=== PATIENT | male | born 1950 | race Caucasian/White ===

== ENCOUNTER 2017-01-09 19:15 | Inpatient (IN) ==
[2017-01-09] MEDS ORDERED: ASPIRIN PO STA (19:32)
--- NOTE | 2017-01-09 20:04 | Diag Imaging Result Doc PS360 ---
EXAM: CHEST-2 VIEWS HISTORY: CP TECHNIQUE: PA and lateral chest COMMENT: There is no evidence of acute cardiac or pulmonary disease. There are sternotomy wires. There is a pacemaker on the left. Compared to 10/26/2013 there is been no significant change in the appearance of the chest. There is a calcified granuloma in the left lower lobe. IMPRESSION: Stable chest. Electronically signed by Darion Rios 01/09/2017 8:01 PM
[2017-01-09 20:47] LABS: MANUAL DIFF NEEDED? NO
[2017-01-09 20:55] LABS: BASO% 0.5 % (0.0-0.8); EOS# 0.36 X1000 (0.0-0.7); EOS% 4.3 % (0.0-10.0); HEMATOCRIT 40.3 % (42.0-52.0); HEMOGLOBIN 13.3 g/dL (14.0-18.0); IMM GRAN# 0.05 X1000 (0.0-0.04); IMM GRAN% 0.6 % (0.0-0.5); LYMPH# 3.54 X1000 (1.2-3.4); MCH 32.3 PG (27-31); MCV 97.8 FL (81-99); MONO# 0.76 X1000 (0.11-0.59); MPV 11.1 FL (7.4-10.4); NEUT% 43.6 % (42.2-75.2); PLT 174 X1000 (130-400); RBC 4.12 XMIL (4.7-6.1)
[2017-01-09 21:18] LABS: INR 1.01; PROTIME 10.6 Seconds (9.2-11.7); PTT 25.9 Seconds (22.0-36.0)
[2017-01-09 21:19] LABS: AGAP 12; ALBUMIN 3.9 g/dL (3.5-5.0); ALKALINE PHOSPHATASE 84 U/L (32-122); BUN 14 mg/dL (8-22); CALCIUM 9.4 mg/dL (8.8-10.2); CHLORIDE 102 mmol/L (98-107); CK PROFILE 77 U/L (24-204); COSMO 278; GOT 19 U/L (10-34); GPT 16 U/L (10-44); MAGNESIUM 1.7 mg/dL (1.5-2.7); SODIUM 139 mmol/L (136-145); TCO2 25 mmol/L (25-35); TOTAL PROTEIN 6.9 g/dL (6.3-8.3)
[2017-01-09] MEDS ORDERED: PRINIVIL PO ONE (21:58)
[2017-01-09] MEDS ORDERED: PAXIL PO ONE (21:58)
[2017-01-09] MEDS ORDERED: LIPITOR PO ONE (21:58)
[2017-01-09] MEDS ORDERED: CORDARONE PO ONE (21:59)
--- NOTE | 2017-01-09 22:02 | PROVIDER DOCUMENTATION ---
This chart was entered by Gracie Goldman Scribe, acting as scribe for Tor Alves MD. HPI-Cardiac General - General Chief Complaint: Palpitations Stated Complaint: CHEST PAIN Time Seen by Provider: 01/09/17 19:37 Source: patient Allergies/Adverse Reactions: Patient Allergies Allergy/AdvReac Type Severity Reaction Status Date / Time No Known Allergies Allergy Verified 07/09/15 07:16 Home Medications: Home Medication List Medication Instructions Recorded Confirmed Last Taken Type Aspirin 81 mg PO DAILY 11/04/12 07/09/15 07/08/15 History Atorvastatin Calcium [Lipitor] 40 mg PO QPM 11/04/12 07/09/15 07/08/15 History Carvedilol [Coreg] 3.125 mg PO BID 11/04/12 07/09/15 07/08/15 History Furosemide [Lasix] 20 mg PO DAILY 11/04/12 07/09/15 07/08/15 History LISINOpril [Prinivil] 5 mg PO BID 11/04/12 07/09/15 07/08/15 History Multivitamin [Multi Vitamin Daily] 1 each PO DAILY 11/04/12 07/09/15 07/08/15 History Omeprazole 20 mg PO DAILY 11/04/12 07/09/15 07/08/15 History Paroxetine HCl 20 mg PO DAILY 11/04/12 07/09/15 07/08/15 History Tramadol HCl 50 mg PO PRN PRN 11/04/12 07/09/15 07/08/15 23:30 History Ardara-3S/Dha/Epa/Fish Oil/D3 [Fish 1 each PO DAILY 08/08/14 07/09/15 07/08/15 History Dxv-Kitci-1-Vit D Softgel] Prasugrel [Effient] 10 mg PO DAILY 08/08/14 07/09/15 07/08/15 History Ranolazine [Ranexa] 500 mg PO BID 08/08/14 07/09/15 07/08/15 History Cephalexin [Keflex] 500 mg PO TID #21 capsule 07/09/15 Unknown Rx Spironolactone 0.5 tab PO DAILY 07/09/15 07/09/15 07/08/15 History - History of Present Illness-Cardiac Nature of Presenting Problem: 66 Y/O M presents to ER with the complain of having palpitations. pt states that he has defibrillator and had multiple episodes of having his defibrillator paced off. pt states that he feels lightheaded and visual changes when it happens. pt states that he got called from the defibrillator company that his defibrillator has went off and if this happens again then go to ER. pt has pacemaker defibrillator put in [place], [place]. pt has hx of heart attack and other cardiac problems. pt denies any other symptoms. Severity in ED: moderate Onset/Duration: just prior to arrival Timing: improving Review of Systems - Adult - REVIEW OF SYSTEMS - ADULT Constitutional: reports: no symptoms reported Eyes: reports: other (visual changes). denies: double vision Ears, Nose, Mouth & Throat: reports: no symptoms reported Cardiovascular: reports: palpitations. denies: chest pain Respiratory: denies: cough, shortness of breath, wheezing Gastrointestinal: reports: no symptoms reported Genitourinary: reports: no symptoms reported Musculoskeletal: reports: no symptoms reported Integumentary: reports: no symptoms reported Neurological: denies: loss of balance, numbness Psychiatric: reports: no symptoms reported Endocrine: reports: no symptoms reported Hematologic/Lymphatic: reports: no symptoms reported Allergic/Immunologic: reports: no symptoms reported All Other Systems: Reviewed and Negative Past History - Adult - PAST MEDICAL HISTORY-ADULT Review of Records: reports: Old Records Reviewed, Nursing Assessment Review Cardiovascular: reports: cardiac disease, CAD, HTN, hyperlipidemia, [place] Respiratory: reports: asthma, sleep apnea Musculoskeletal: reports: arthritis, chronic pain (back) - PRIOR SURGERIES/PROCEDURES Surgical/Procedure History: reports: CABG, cardiac stent, back/neck (back) - IMMUNIZATION STATUS Childhood Immunizations: See Nurse Assessment Flu Vaccine: See Nurse Assessment - SOCIAL HISTORY Substance Use: alcohol Alcohol Use Frequency: occasionally Physical Exam-General - PHYSICAL EXAM-ADULT Initial Vital Signs Reviewed: Yes - CONSTITUTIONAL General Appearance: appears well, alert - EYES Eyes: PERRL/EOMI, pink conjunctivae - HEAD, EARS, NOSE, MOUTH & THROAT HENMT: moist mucous membranes, normal ENT inspection, TMs normal - NECK Neck: non-tender, full range of motion, supple - RESPIRATORY Respiratory: chest non-tender, lungs clear, normal breath sounds - CARDIOVASCULAR Cardiovascular: systolic murmur, other (pacemater defibrillator) - GASTROINTESTINAL (ABDOMEN) Abdominal Exam: normal bowel sounds, non tender, soft - MUSCULOSKELETAL Back Exam: normal inspection, no CVA tenderness, no vertebral tenderness Extremity: normal range of motion, non-tender, normal gait - SKIN Integumentary: normal color, normal turgor, warm/dry - NEUROLOGIC Neurologic: grossly normal, no motor/sensory deficits - PSYCHIATRIC Psych/Mental Status: normal mood/affect, normal thought content, normal thought process, oriented x 3 Progress - PLAN OF CARE/RESULTS Progress/Plan/Lab Results: Vital Signs - 8 hr 01/09/17 19:30 01/09/17 21:31 Temperature 98.4 F Pulse Rate 66 59 L Respiratory Rate 18 14 Blood Pressure 118/53 131/67 O2 Sat by Pulse Oximetry 98 98 Laboratory Results - last 24 hr 01/09/17 01/09/17 01/09/17 20:30 20:30 20:30 WBC 8.43 RBC 4.12 L Hgb 13.3 L Hct 40.3 L MCV 97.8 MCH 32.3 H MCHC 33.0 RDW Std Deviation 12.6 Plt Count 174 MPV 11.1 H Immature Gran % (Auto) 0.6 H Neut % (Auto) 43.6 Lymph % (Auto) 42.0 [place] % (Auto) 9.0 Eos % (Auto) 4.3 Baso % (Auto) 0.5 Immature Gran # (Auto) 0.05 H Neut # (Auto) 3.68 Lymph # (Auto) 3.54 H [place] # (Auto) 0.76 H Eos # (Auto) 0.36 Baso # (Auto) 0.04 PT INR PTT (Actin FS) D-Dimer 0.31 Sodium 139 Potassium 4.0 Chloride 102 Carbon Dioxide 25 Anion Gap 12 BUN 14 Creatinine 1.0 Estimated GFR/1.73 m2 > 60 BUN/Creatinine Ratio 14 Glucose 102 Calculated Osmolality 278 Calcium 9.4 Magnesium 1.7 Total Bilirubin 0.40 AST 19 ALT 16 Alkaline Phosphatase 84 Creatine Kinase 77 Troponin T Blz-A-Spqtbmcjhbj Pept Total Protein 6.9 Albumin 3.9 Globulin 3.0 Albumin/Globulin Ratio 1.3 01/09/17 01/09/17 01/09/17 20:30 20:30 20:30 WBC RBC Hgb Hct MCV MCH MCHC RDW Std Deviation Plt Count MPV Immature Gran % (Auto) Neut % (Auto) Lymph % (Auto) [place] % (Auto) Eos % (Auto) Baso % (Auto) Immature Gran # (Auto) Neut # (Auto) Lymph # (Auto) [place] # (Auto) Eos # (Auto) Baso # (Auto) PT 10.6 INR 1.01 PTT (Actin FS) 25.9 D-Dimer Sodium Potassium Chloride Carbon Dioxide Anion Gap BUN Creatinine Estimated GFR/1.73 m2 BUN/Creatinine Ratio Glucose Calculated Osmolality Calcium Magnesium Total Bilirubin AST ALT Alkaline Phosphatase Creatine Kinase Troponin T < 0.010 Fsq-[id number]-Hvzwgsircvy Pept 1866 H Total Protein Albumin Globulin Albumin/Globulin Ratio Orders Category Date Time Status Cardiac Monitoring DIRECTED Care 01/09/17 19:32 Active Oxygen Therapy- ED Nursing DIRECTED Care 01/09/17 19:32 Active Saline Loc NOW Care 01/09/17 19:32 Active CHEST-2 VIEWS [RAD] Stat Exams 01/09/17 19:32 Completed CBC WITH ELECTRONIC DIFF [HEME] Stat Lab 01/09/17 20:30 Completed CK PROFILE [SP CHEM] Stat Lab 01/09/17 20:30 Completed COMPREHENSIVE METABOLIC PANEL [CHEM] Stat Lab 01/09/17 20:30 Completed D-DIMER [CHEM] Stat Lab 01/09/17 20:30 Completed MAGNESIUM [CHEM] Stat Lab 01/09/17 20:30 Completed PRO B-NATRIURETIC PEPTIDE Stat Lab 01/09/17 20:30 Completed PROTIME WITH INR [COAG] Stat Lab 01/09/17 20:30 Completed PTT [COAG] Stat Lab 01/09/17 20:30 Completed TROPONIN T Stat Lab 01/09/17 20:30 Completed ATORVAstatin [Lipitor] Med 01/09/17 21:58 Once 40 mg PO NOW ONE Amiodarone [Cordarone] Med 01/09/17 21:59 Once 400 mg PO NOW ONE Aspirin Med 01/09/17 19:32 Discontinued 325 mg PO STAT STA LISINOpril [Prinivil] Med 01/09/17 21:58 Once 5 mg PO NOW ONE Paroxetine [Paxil] Med 01/09/17 21:58 Once 10 mg PO NOW ONE EKG [EKG] Stat Ther 01/09/17 19:22 Ordered EKG [EKG] Stat Ther 01/09/17 21:24 Ordered Result Diagrams: 01/09/17 20:30 01/09/17 20:30 - EKG 1 Time of EKG reading by physician:: 19:24 EKG Read and Signed by:: Tor Alves EKG Interpretation (*Must complete 3 of following elements*): Abnormal Rate: 63 Rhythm: normal sinus rhythm with sinus arrhyhmia Comments: abnormal ECG - XRAY 1 XRAY: Bilateral XRAY Study: Chest Impression: Normal XRAY Interpretation: stable chest by radiologist - CONSULTS/PCP/HOSPITALIST Notification #1 *Consult/PCP/Hospitalist*: Time Discussed: 21:44 (wants to put pt on amiodaron as per protocol) Reason/Comments: discussed about 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 Consult: Dr Carty Time Discussed: 21:54 Reason/Comments: discussed about pt Consult Disposition: Admit Departure - Departure Date of Disposition Decision: 01/09/17 Time of Disposition Decision: 22:00 DIAGNOSIS: Ventricular tachycardia (paroxysmal) Disposition: HOME 01 Certified Medical Emergency: Emergent Condition: Good Referrals and Follow-Ups: Tej Gracia [Primary Care Provider] - - Critical Care Note This patient required my direct & personal management of CC.: No Attestation - Physician/ ROSEMARY Attestation Patient care was provided by Advanced Practice Provider:: No The physician spent face to face time with patient:: Yes Advanced Practice Provider documentation review:: Supervising physician onsite and consulted in the evaluation and care of this patient. The physician did have a face to face encounter with the patient. This chart was documented by the indicated scribe, (Gracie Goldman Scribe) and accurately reflects the services I performed and decisions made by me, Tor Alves MD, as attested by the provider's signature.
--- NOTE | 2017-01-09 23:08 | ED EKG INTERP ---
This chart was entered by Gracie Goldman Scribe, acting as scribe for Tor Alves MD. EKG Interpretation - EKG Time of EKG reading by physician:: 21:49 EKG Read and Signed by:: Tor Alves EKG Interpretation (*Must complete 3 of following elements*): Abnormal Rate: 61 Rhythm: sinus rhythm with premature atrial complexes brigida pattern of bigeminy Comments: abnormal ECG Attestation - Physician/ ROSEMARY Attestation Patient care was provided by Advanced Practice Provider:: No The physician spent face to face time with patient:: Yes Advanced Practice Provider documentation review:: Supervising physician onsite and consulted in the evaluation and care of this patient. The physician did have a face to face encounter with the patient. This chart was documented by the indicated scribe, (Gracie Goldman Scribe) and accurately reflects the services I performed and decisions made by me, Tor Alves MD, as attested by the provider's signature.
[2017-01-10] MEDS ORDERED: TYLENOL PO PRN (00:09)
[2017-01-10] MEDS ORDERED: ZOFRAN IV PRN (00:09)
[2017-01-10] MEDS ORDERED: SINGULAIR PO PRN (00:09)
[2017-01-10] MEDS ORDERED: ULTRAM PO PRN (00:09)
[2017-01-10] MEDS ORDERED: NITROGLYCERIN SL PRN (00:09)
--- NOTE | 2017-01-10 03:32 | HISTORY AND PHYSICAL ---
CARDIOLOGISTS: Dr. Troy. CHIEF COMPLAINT: Palpitations. HISTORY OF PRESENT ILLNESS: Mr. Reddy is a 66-year-old, male with a history of severe coronary artery disease status post SD, systolic congestive heart failure, ischemic cardiomyopathy, who recently had 3 stents placed at [facility] around 6 weeks ago. Reports today with palpitations and reports that his ICD possibly went off and confirmed reports of ventricular tachycardia. He started having some palpitations around Saturday. He had his device interrogated over the phone and it was found that he was having a few episodes of ventricular tachycardia. He was told that if he continued to have these sensations that he should go the ER. He called again today and confirmed that he was having more ventricular tachycardia and he came to the hospital for evaluation. He denies any overt chest pain. He does report palpitation type symptoms and intervention by his ICD. He has no other complaints. No fever or chills. No cough or congestion. He does have chronic shortness of breath and orthopnea which has been overall stable. He got to the ER today. He had labs and diagnostics done. He had some mild anemia and a proBNP of 1866, otherwise negative. Cardiology has already been notified and they have requested the patient be admitted and placed on amiodarone. As such, we are going to admit him overnight to the ICU for treatment and evaluation. PAST MEDICAL HISTORY: 1. CAD. 2. Ischemic cardiomyopathy. 3. Systolic congestive heart failure. 4. Depression. 5. Hyperlipidemia. 6. Hypertension. 7. GERD. PAST SURGICAL HISTORY: He has had a CABG, nephrectomy for donation, cholecystectomy, appendectomy. SOCIAL HISTORY: Patient denies tobacco or drug use. He reports very occasional alcohol. He is retired from . FAMILY HISTORY: Significant for coronary disease. REVIEW OF SYSTEMS: Fourteen-point review of systems obtained and found to be negative with the exception of the HPI. HOME MEDICATIONS: Aspirin 81 mg daily, Lipitor 40 mg p.m., fluticasone nasal spray 1 puff b.i.d., Lasix 20 mg daily, Prinivil 5 mg b.i.d., metoprolol succinate 50 mg daily, Singulair 10 mg as needed, multivitamin 1 daily, nitroglycerin 0.4 mg as needed for chest pain, fish oil 2000 mg b.i.d., omeprazole 20 mg daily, paroxetine 10 mg daily, Effient 10 mg daily, Aldactone 12.5 mg daily, tramadol 50 mg as needed for pain. ALLERGIES: No known drug allergies. PHYSICAL EXAMINATION: VITAL SIGNS: Blood pressure is 125/65, heart rate 72, respiratory rate is 19, O2 saturation 100% on room air. Temperature is 98.4 degrees. GENERAL: This is a chronically ill-appearing, 66-year-old, male, lying in a hospital bed in no acute distress. NEUROLOGIC: He is awake, alert, and oriented. He follows commands without focal deficits. HEENT: Head is atraumatic and normocephalic. His pupils are equal, round, and reactive to light. Oral mucosa is moist. Trachea is midline. There is no JVD. CHEST: Clear to auscultation bilaterally. CV: Regular rate and rhythm with occasional skipped beats. S1 and S2 noted. There is a 2/6 systolic murmur noted. GI: Soft, nondistended, nontender. Bowel sounds positive. EXTREMITIES: Trace edema with 1+ pulses bilaterally. DIAGNOSTIC DATA: Chest x-ray does not show anything acute. There is calcified granuloma in the left lower lobe. EKG, sinus bradycardia with diffuse nonspecific ST and T changes. LABORATORY DATA: WBC 8.43, hemoglobin 13.3, hematocrit 40.3, platelet count 174 ,000. INR 1.01. D-dimer 0.31. Sodium 139, potassium 4, chloride 102, CO2 25, anion gap 12, BUN 14, creatinine 1, glucose is 102, calcium 9.4, magnesium 1.7. Total bilirubin 0.4, AST 19, ALT 16 , alkaline phosphatase 84. ProBNP 1866. Protein 6.9, albumin 3.9. ASSESSMENT AND PLAN: 1. Palpitations with confirmed ventricular tachycardia: The patient is going to be admitted to the intensive care unit. We are going to start oral amiodarone per cardiology recommendation. We will trend his enzymes, check an echocardiogram in the morning, make sure and check thyroid function as well. 2. Systolic heart failure: Exact ejection fraction is unknown but we are going to check an echocardiogram. Follow strict intakes and outputs, and daily weights. He is overall euvolemic at this time. Continue his home medications. 3. Severe coronary disease: Continue lifestyle modification education. Continue his beta luh, aspirin, and Effient. Cardiology has been consulted. 4. Hypertension/hyperlipidemia: Continue his home medications. 5. Gastroesophageal reflux disease: Stable. Continue his omeprazole. 6. Deep vein thrombosis prophylaxis will be provided with Lovenox. 7. Further recommendations to follow. 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 cc: SIS Taylor MD [facility]
[2017-01-10 05:50] LABS: HEMATOCRIT 37.4 % (42.0-52.0); HEMOGLOBIN 12.3 g/dL (14.0-18.0); MCH 32.2 PG (27-31); MCHC 32.9 g/dL (33-37); MCV 97.9 FL (81-99); MPV 10.9 FL (7.4-10.4); RBC 3.82 XMIL (4.7-6.1)
[2017-01-10 06:08] LABS: AGAP 11; BUN 16 mg/dL (8-22); CALCIUM 9.3 mg/dL (8.8-10.2); CHLORIDE 104 mmol/L (98-107); COSMO 282; POTASSIUM 4.3 mmol/L (3.5-5.1); SODIUM 140 mmol/L (136-145); TCO2 25 mmol/L (25-35)
--- NOTE | 2017-01-10 07:42 | EKG Report ---
Test Performed on : 01/09/2017 9:49:53 PM Test Reason : change Blood Pressure : / mmHG Vent. Rate : 061 BPM Atrial Rate : 061 BPM P-R Int : 158 ms QRS Dur : 128 ms QT Int : 426 ms P-R-T Axes : 008 -40 100 degrees QTc Int : 428 ms Sinus rhythm. with premature atrial complexes. in a pattern of bigeminy. Left axis deviation Nonspecific intraventricular block Inferior infarct (cited on or before 05-NOV-2012) Cannot rule out Anterior infarct (cited on or before 05-NOV-2012) Abnormal ECG When compared with ECG of 09-JAN-2017 19:24, (Unconfirmed) premature atrial complexes. are now present Unconfirmed Result
--- NOTE | 2017-01-10 07:42 | EKG Report ---
Test Performed on : 01/09/2017 7:24:20 PM Test Reason : CHEST PAIN Blood Pressure : / mmHG Vent. Rate : 063 BPM Atrial Rate : 063 BPM P-R Int : 154 ms QRS Dur : 130 ms QT Int : 420 ms P-R-T Axes : -02 -44 106 degrees QTc Int : 429 ms Normal sinus rhythm. with sinus arrhythmia. Left axis deviation Nonspecific intraventricular block Inferior infarct (cited on or before 05-NOV-2012) Cannot rule out Anterior infarct , age undetermined T wave abnormality, consider lateral ischemia Abnormal ECG When compared with ECG of 05-NOV-2012 07:42, premature ventricular complexes. are no longer present Unconfirmed Result
[2017-01-10] MEDS ORDERED: PRILOSEC PO SCH (09:00)
[2017-01-10] MEDS ORDERED: PAXIL PO SCH (09:00)
[2017-01-10] MEDS ORDERED: FLONASE NAS SCH (09:00)
[2017-01-10] MEDS ORDERED: ALDACTONE PO SCH (09:00)
[2017-01-10] MEDS ORDERED: TOPROL XL PO SCH (09:00)
[2017-01-10] MEDS ORDERED: LOVENOX SUBQ SCH (09:00)
[2017-01-10] MEDS ORDERED: FISH OIL CONCENTRATE PO SCH (09:00)
[2017-01-10] MEDS ORDERED: COREG PO SCH (09:00)
[2017-01-10] MEDS ORDERED: CORDARONE PO SCH (09:00)
[2017-01-10] MEDS ORDERED: EFFIENT PO SCH (09:00)
[2017-01-10] MEDS ORDERED: PRINIVIL PO SCH (09:00)
[2017-01-10] MEDS ORDERED: ASPIRIN PO SCH (09:00)
[2017-01-10] MEDS ORDERED: THERA M PLUS PO SCH (09:00)
[2017-01-10] MEDS ORDERED: CORDARONE 150 MG/D5W 150 MG/100 ML IV.SOLN IV ONE (09:36)
[2017-01-10] MEDS ORDERED: CORDARONE 360 MG/D5W 360 MG/200 ML IV.SOLN IV ONE (09:36)
[2017-01-10 12:04] VITALS: BP 115/50
--- NOTE | 2017-01-10 14:59 | CONSULTATION ---
DATE OF CONSULTATION: 01/10/2017 CARDIOLOGY CONSULT NOTE: IMPRESSION: 1. Recurrent episodes of ventricular tachycardia, either nonsustained or interrupted with overdrive pacing from implanted defibrillator. 2. Atherosclerotic coronary disease. A) Status post coronary bypass grafting 2001. B) Status post angioplasty with stenting of proximal saphenous vein graft to diagonal which in effect is collateralizing the remainder of the coronary system. Right coronary artery, left internal mammary artery graft and saphenous vein graft to right coronary artery are all occluded. C) Status post repeat angioplasty with stenting of proximal saphenous vein graft to diagonal which collateralized the remainder of the system. D) Ischemic cardiomyopathy with left ventricular ejection around 30%. The patient is status post implantable defibrillator. 3. Hypertension. 4. Hyperlipidemia. RECOMMENDATIONS: 1. Continue intravenous amiodarone. 2. Continue beta-luh as tolerated. 3. Given that patient just had percutaneous intervention on proximal saphenous vein graft to diagonal which collateralizes the entire coronary system, re-evaluation with cardiac catheterization/coronary geography is needed. It would be most prudent to do this at [facility] where percutaneous coronary intervention versus coronary bypass surgery can be considered as well as expert arrhythmia consultation can be obtained. This was discussed with the patient. He very much wishes to transfer. HISTORY: This 66-year-old, white male with past history of atherosclerotic coronary disease as outlined above, previous coronary bypass graft in 2001, ischemic cardiomyopathy with left ventricular ejection fraction of 30%, hypertension, hyperlipidemia presented to the emergency room last night after his defibrillator was noted to be demonstrating recurrent episodes of ventricular tachycardia requiring overdrive tachy pacing. He had several episodes and was advised to go the emergency room. He had not had a defibrillator discharge. He relates that he could feel episodes in that he would feel palpitations and a flushed feeling rising up from his chest to his head. There was no chest pain. He has had no orthopnea. He is status post repeat angioplasty with stenting of proximal saphenous vein graft to diagonal approximately 2 months ago after he presented with progressive exertional angina with relatively low threshold for symptoms. Since that time he has done well up until the last 24 hours. He last walked perhaps about a week ago and had no difficulty with exertional angina or dyspnea. He was able to walk about a half mile at that time. Because of the weather he has not done much walking in the past week. He continues take dual anti-platelet therapy. There has been no syncope. PAST MEDICAL HISTORY: 1. Atherosclerotic coronary disease as outlined above. 2. Hypertension. 3. Hyperlipidemia. 4. Ischemic cardiomyopathy. 5. Obesity. 6. Status post implantable defibrillator. 7. Gastroesophageal reflux. 8. Depression. PAST SURGICAL HISTORY: Includes coronary bypass grafting, nephrectomy for donation, cholecystectomy, and appendectomy. ALLERGIES: He has no known drug allergies. MEDICATIONS: Prior to admission as listed. SOCIAL HISTORY: He does not smoke. He drinks infrequent alcohol. He is retired from [employer]. He is . FAMILY HISTORY: Positive for coronary disease. REVIEW OF SYSTEMS: Pulmonary: Noncontributory beyond history of present illness. Gastrointestinal: Noncontributory beyond history of present illness. Constitutional: Noncontributory beyond history of present illness. Remainder of review of systems negative/noncontributory beyond history present illness with 14 total systems reviewed. PHYSICAL EXAMINATION: General: This is a pleasant, overweight, older middle-aged white male in no distress. Vital Signs: Blood pressure 115/50, heart rate 57 and regular, with ECG monitor now showing sinus rhythm. Oxygen saturation 96% on room air. HEENT: Extraocular movements intact. Mucous membranes are moist. Neck: Supple without jugular venous distention. There are no carotid bruits. Chest: Clear to auscultation. Cardiac Exam: Reveals a regular rate and rhythm without appreciable murmur or gallop. Abdomen: Soft, nontender. Bowel sounds are normal. Extremities: Without edema. Neurologic Exam: Reveals him to be alert and fully oriented. Speech is fluent. He moves all 4 extremities equally well. Skin: Warm and dry. Psychiatric Exam: Reveals mood to be appropriate. LABORATORY DATA: Includes a hematocrit of 40.3, hemoglobin 13.3, white blood cell count 8.4, platelet count 174,000. ProTime 10.6, INR 1.0, PTT 25.9. D-dimer 0.31. Potassium 4.3, BUN 16, creatinine 1.1. CPK 64. Troponin less than 0.01. TSH 0.98. DIAGNOSTIC DATA: EKG sinus rhythm with premature atrial complexes, left axis deviation, nonspecific interventricular conduction block and delayed precordial R-wave progression, cannot exclude prior anterior infarct of undetermined age. Chest x-ray reports no evidence of acute disease. Sternotomy wires noted as well as implantable defibrillator. cc: Dale Troy MD
[2017-01-10] MEDS ORDERED: CORDARONE 540 MG in D5W 289.2 ML IV ONE (16:00)
[2017-01-10] MEDS ORDERED: LIPITOR PO SCH (21:00)
--- NOTE | 2017-01-11 13:49 | ECHO REPORT ---
ORDER DATE: 01/10/2017 MEASUREMENTS: Left ventricular end-diastolic diameter 7.3, end systolic diameter 6.3, posterior wall thickness 0.9, septal thickness 1.0, left atrium 4.9, aortic root 4.4. SUMMARY: 1. Adequate quality study. 2. Mild sclerosis of trileaflet aortic valve demonstrated with adequate aortic valve opening evident. There is mild aortic regurgitation. Mitral, tricuspid, and pulmonic valves are without structural abnormality with moderate mitral regurgitation, mild tricuspid regurgitation, and mild pulmonic insufficiency. Estimated systolic PA pressure by Doppler is 55 mmHg suggesting moderate pulmonary hypertension. The aortic root is mild to moderately enlarged. 3. Moderate to severe left ventricular enlargement demonstrated. Left ventricular wall thickness normal. Estimated left ejection fraction approximately 30%. There is thinning and akinesis of the basal and mid inferolateral region left ventricle. There is thinning and akinesis of the basal inferior wall. The mid inferior wall is mildly hypokinetic. Left atrium is moderately enlarged. Right atrium, right ventricle are normal size with normal right ventricular systolic function. Defibrillator lead evident right ventricle. 4. No pericardial effusion. 5. Appearance of inferior vena cava suggests normal central venous pressure. CONCLUSIONS: 1. Mild aortic valve sclerosis without stenosis with mild aortic regurgitation. 2. Moderate mitral regurgitation. 3. Mild tricuspid regurgitation with moderate pulmonary hypertension by Doppler. 4. Moderately severe left ventricular enlargement with estimated left ejection fraction 30% with akinesis of the basal and mid inferolateral wall, akinesis of the basal inferior wall, and mild mid inferior wall hypokinesis. 5. Moderate left atrial enlargement. 6. Defibrillator lead in right ventricle. cc: MD Raymundo Campo CRNP
--- NOTE | 2017-01-12 14:43 | DISCHARGE SUMMARY ---
ADMISSION DATE: 01/09/2017 DISCHARGE DATE: 01/10/2017 FINAL DISCHARGE DIAGNOSES: 1. Recurrent ventricular tachycardia. 2. Severe coronary artery disease status post coronary artery bypass graft. 3. Ischemic cardiomyopathy status post IACD. 4. Hypertension. 5. Dyslipidemia. CONSULTATIONS REQUESTED DURING THIS HOSPITAL STAY: Cardiology consultation. HOSPITAL COURSE: Mr. Reddy is a 66-year-old male with a history of extensive cardiac disease who presented to the ER with a chief complaint of palpitations. Once the patient was placed on the compliance monitor he was noted to be going in and out of ventricular tachycardia. The patient was admitted to the ICU and Cardiology was consulted. The patient was placed on IV amiodarone and beta blockade therapy. However despite these interventions the patient continued to go in and out of ventricular tachycardia. The transplant coordinator consulted with the transplant coordinator at [facility] and arrangements were made for the patient to be transferred to [facility] for further treatment and evaluation by an fabrication specialist. The patient was transferred to [facility] on December on 01/10/2017. cc: MD Tej Lorenzo
== END 2017-01-10 16:00 | disposition short-term general hospital (02) ==
LOC: ED 19:15 → SUATTDRO 22:50 → ICU 22:50
PROVIDERS: ATTEND Internal Medicine

== ENCOUNTER 2017-02-13 11:20 | Observation (INO) ==
[2017-02-13 11:45] LABS: MANUAL DIFF NEEDED? NO
[2017-02-13 11:52] LABS: BASO% 0.7 % (0.0-0.8); EOS# 0.25 X1000 (0.0-0.7); EOS% 2.6 % (0.0-10.0); HEMATOCRIT 39.5 % (42.0-52.0); HEMOGLOBIN 13.1 g/dL (14.0-18.0); IMM GRAN# 0.18 X1000 (0.0-0.04); IMM GRAN% 1.9 % (0.0-0.5); LYMPH# 2.79 X1000 (1.2-3.4); LYMPH% 28.9 % (20.5-51.1); MCH 32.8 PG (27-31); MCHC 33.2 g/dL (33-37); MONO# 0.94 X1000 (0.11-0.59); MONO% 9.7 % (1.7-9.3); MPV 10.5 FL (7.4-10.4); NEUT% 56.2 % (42.2-75.2); PLT 189 X1000 (130-400); RBC 3.99 XMIL (4.7-6.1)
[2017-02-13 12:00] LABS: INR 1.03; PROTIME 10.8 Seconds (9.2-11.7)
--- NOTE | 2017-02-13 12:06 | Diag Imaging Result Doc PS360 ---
CHEST-PORTABLE - 02/13/2017 INDICATION: near syncope TECHNIQUE: COMPARISON: 01/09/2017 FINDINGS: Stable left-sided pacemaker. Stable sternotomy wires. There is mild cardiomegaly. Pulmonary vascularity is normal. No focal infiltrates, pneumothorax, or pleural effusion. IMPRESSION: Mild cardiomegaly. Electronically signed by Dwight Ferrer 02/13/2017 12:03 PM
[2017-02-13 12:18] LABS: URINE MICRO REVIEW NEEDED? NO; URINE SOURCE CLEAN CATCH
[2017-02-13 12:19] LABS: ALBUMIN 4.1 g/dL (3.5-5.0); CALCIUM 9.9 mg/dL (8.8-10.2); MAGNESIUM 2.2 mg/dL (1.5-2.7); POTASSIUM 5.5 mmol/L (3.5-5.1); TOTAL BILIRUBIN 0.67 mg/dL (0.20-1.00); TOTAL PROTEIN 7.4 g/dL (6.3-8.3)
[2017-02-13 12:22] LABS: UR EPITHELIAL CELLS <10 /HPF (<10); URINE BACTERIA NEGATIVE /HPF; URINE RBC <10 /HPF (<10); URINE WBC TNTC /HPF (<10)
[2017-02-13 12:27] LABS: BILIRUBIN URINE SMALL (NEGATIVE); BLOOD URINE NEGATIVE (NEGATIVE); COLOR YELLOW; GLUCOSE URINE NEGATIVE (NEGATIVE); LEUKOCYTES URINE LARGE (NEGATIVE); NITRITE URINE NEGATIVE (NEGATIVE); PROTEIN URINE 200 mg/dL (NEGATIVE); SP GRAVITY URINE 1.025; TURBIDITY URINE HAZY (CLEAR); URINE CULTURE NEEDED? YES; UROBILINOGEN URINE 2 mg/dL (NORMAL)
[2017-02-13] MEDS ORDERED: KAYEXALATE PO ONE (12:29)
[2017-02-13] MEDS ORDERED: NS 500 ML IV ONE (12:29)
[2017-02-13] MEDS ORDERED: ROCEPHIN 1 GM in NS 50 ML IV ONE (12:29)
[2017-02-13] MEDS ORDERED: NS 1,000 ML IV SCH (16:16)
--- NOTE | 2017-02-13 17:00 | PROVIDER DOCUMENTATION ---
This chart was entered by Sudhir Dykes Scribe, acting as scribe for Abiodun Fuentes PA. HPI-Syncope/Dizziness - General Chief Complaint: Near Syncope Stated Complaint: NEAR SYNCOPE BRADYCARDIA Time Seen by Provider: 02/13/17 11:27 Source: patient Allergies/Adverse Reactions: Patient Allergies Allergy/AdvReac Type Severity Reaction Status Date / Time No Known Allergies Allergy Verified 02/13/17 13:10 Home Medications: Home Medication List Medication Instructions Recorded Confirmed Last Taken Type LISINOpril [Prinivil] 5 mg PO DAILY 11/04/12 02/13/17 02/13/17 08:00 History Multivitamin [Multi Vitamin Daily] 1 each PO DAILY 11/04/12 02/13/17 02/13/17 08 :00 History Albuterol Sulfate [Proair Hfa] 2 puff PO PRN PRN 02/13/17 02/13/17 Unknown History Aspirin 325 mg PO DAILY 02/13/17 02/13/17 02/13/17 08:00 History Clonazepam 0.5 mg PO HS 02/13/17 02/13/17 02/12/17 21:00 History Fish Oil/Dha/Epa [Fish Oil 1,200 1,200 mg PO DAILY 02/13/17 02/13/17 02/13/17 08 :00 History mg Fish Oil] Garlic 500 mg PO DAILY 02/13/17 02/13/17 02/13/17 08:00 History Gemfibrozil 600 mg PO HS 02/13/17 02/13/17 02/13/17 08:00 History Tamsulosin HCl 0.4 mg PO EVERY OTHER DAY 02/13/17 02/13/17 02/13/17 08:00 History Turmeric Root Extract [Turmeric] 500 mg PO DAILY 02/13/17 02/13/17 02/13/17 08: 00 History - History of Present Illness-Syncope/Dizzy Nature of Presenting Problem: patient is a 66 y/o M that presents after having a near syncopal episode at the [facility]. Patient reports feeling lightheaded and flushed. he felt faint and nearly passed out. He feels dizzy now. denies any chest pain. History of issues with arrhythmia in past. He had stents placed at 6 weeks ago. He had several episodes of VT several weeks ago. Prior Episodes: reports: single episode today Onset/Duration: reports: abrupt, just prior to arrival Timing: reports: improving Symptoms prior to episode: reports: lightheaded. denies: nausea/vomiting, chest pain, abdominal pain, recent head trauma, rapid heart beat Context: reports: felt faint, almost passed out Loss of Consciousness: no loss of consciousness Location of injury. (If syncope resulted in an injury.): reports: none Current Symptoms: reports: lightheaded, dizzy, lightheaded. denies: chills, chest pain, abdominal pain, nausea, vomiting Similar symptoms previously: reports: previous diagnosis Recently Seen Here or By Another Healthcare Provider: Yes Review of Systems - Adult - REVIEW OF SYSTEMS - ADULT Constitutional: denies: chills, fever Eyes: reports: no symptoms reported Ears, Nose, Mouth & Throat: reports: no symptoms reported Cardiovascular: reports: syncope (near). denies: orthopnea, palpitations Respiratory: denies: cough, shortness of breath, wheezing Gastrointestinal: denies: abdominal pain, diarrhea, nausea, vomiting Genitourinary: reports: no symptoms reported Musculoskeletal: reports: no symptoms reported Integumentary: reports: no symptoms reported Neurological: reports: dizziness/vertigo, syncope (near) Psychiatric: reports: no symptoms reported Endocrine: reports: no symptoms reported Hematologic/Lymphatic: reports: no symptoms reported Allergic/Immunologic: reports: no symptoms reported All Other Systems: Reviewed and Negative Past History - Adult - PAST MEDICAL HISTORY-ADULT Review of Records: reports: Old Records Reviewed, Nursing Assessment Review, Medications Reviewed Cardiovascular: reports: cardiac disease, CAD, HTN, hyperlipidemia, [place] Respiratory: reports: asthma, sleep apnea Musculoskeletal: reports: arthritis, chronic pain (back) - PRIOR SURGERIES/PROCEDURES Surgical/Procedure History: reports: CABG, cardiac stent, back/neck (back) - IMMUNIZATION STATUS Childhood Immunizations: See Nurse Assessment Flu Vaccine: See Nurse Assessment - FAMILY HISTORY Family History: reviewed, not pertinent - SOCIAL HISTORY Smoking: non-smoker Alcohol Use Frequency: occasionally Living Situation: family Physical Exam-General - PHYSICAL EXAM-ADULT Initial Vital Signs Reviewed: Yes - CONSTITUTIONAL General Appearance: alert, no apparent distress - EYES Eyes: PERRL/EOMI, pink conjunctivae - HEAD, EARS, NOSE, MOUTH & THROAT HENMT: normocephalic/atraumatic, moist mucous membranes, normal ENT inspection, TMs normal - NECK Neck: full range of motion, normal inspection. negative: lymphadenopathy - RESPIRATORY Respiratory: lungs clear, normal breath sounds, no respiratory distress, no accessory muscle use - CARDIOVASCULAR Cardiovascular: no JVD, no murmur, bradycardia - GASTROINTESTINAL (ABDOMEN) Abdominal Exam: normal bowel sounds, non tender, soft, no organomegaly, no pulsatile mass - MUSCULOSKELETAL Back Exam: no CVA tenderness, no vertebral tenderness Extremity: normal range of motion, normal inspection, no pedal edema - SKIN Integumentary: normal color, warm/dry - NEUROLOGIC Neurologic: tank builder II-XII nml as tested, no motor/sensory deficits - PSYCHIATRIC Psych/Mental Status: normal mood/affect, normal thought content, normal thought process, oriented x 3 Progress - PLAN OF CARE/RESULTS Progress/Plan/Lab Results: Vital Signs - 8 hr 02/13/17 11:29 02/13/17 13:04 02/13/17 14:52 Temperature 97.6 F Pulse Rate 59 L 50 L 54 L Respiratory Rate 18 31 H 20 Blood Pressure 115/58 93/55 84/43 O2 Sat by Pulse Oximetry 98 100 98 02/13/17 15:45 02/13/17 16:05 Temperature Pulse Rate 54 L 53 L Respiratory Rate 19 17 Blood Pressure 98/57 106/57 O2 Sat by Pulse Oximetry 99 100 Laboratory Results - last 24 hr 02/13/17 02/13/17 02/13/17 11:40 11:40 11:40 WBC 9.67 RBC 3.99 L Hgb 13.1 L Hct 39.5 L MCV 99.0 MCH 32.8 H MCHC 33.2 RDW Std Deviation 13.6 Plt Count 189 MPV 10.5 H Immature Gran % (Auto) 1.9 H Neut % (Auto) 56.2 Lymph % (Auto) 28.9 Brule % (Auto) 9.7 H Eos % (Auto) 2.6 Baso % (Auto) 0.7 Immature Gran # (Auto) 0.18 H Neut # (Auto) 5.44 Lymph # (Auto) 2.79 Brule # (Auto) 0.94 H Eos # (Auto) 0.25 Baso # (Auto) 0.07 PT INR PTT (Actin FS) Sodium 134 L Potassium 5.5 H Chloride 100 Carbon Dioxide 21 L Anion Gap 13 BUN 30 H Creatinine 1.7 H Estimated GFR/1.73 m2 41 BUN/Creatinine Ratio 18 Glucose 122 H POC Glucose Calculated Osmolality 276 Calcium 9.9 Magnesium 2.2 Total Bilirubin 0.67 AST 20 ALT 16 Alkaline Phosphatase 70 Creatine Kinase 50 Troponin T Hhn-T-Lsqawjulepb Pept 1791 H Total Protein 7.4 Albumin 4.1 Globulin 3.3 Albumin/Globulin Ratio 1.2 Plasma Lactate Urine Source Urine Color Urine Turbidity Urine pH Ur Specific [place] Urine Protein Ur Glucose (Stick) Ur Ketones (Stick) Urine Blood Urine Nitrite Urine Bilirubin Urobilinogen Dipstick Urine Leukocytes Urine WBC (Auto) Urine RBC (Auto) U Epithel Cells (Auto) Urine Bacteria (Auto) 02/13/17 02/13/17 02/13/17 11:40 11:40 11:51 WBC RBC Hgb Hct MCV MCH MCHC RDW Std Deviation Plt Count MPV Immature Gran % (Auto) Neut % (Auto) Lymph % (Auto) Brule % (Auto) Eos % (Auto) Baso % (Auto) Immature Gran # (Auto) Neut # (Auto) Lymph # (Auto) Brule # (Auto) Eos # (Auto) Baso # (Auto) PT 10.8 INR 1.03 PTT (Actin FS) 24.0 Sodium Potassium Chloride Carbon Dioxide Anion Gap BUN Creatinine Estimated GFR/1.73 m2 BUN/Creatinine Ratio Glucose POC Glucose 120 H Calculated Osmolality Calcium Magnesium Total Bilirubin AST ALT Alkaline Phosphatase Creatine Kinase Troponin T < 0.010 Dew-L-Pqdfefbmqim Pept Total Protein Albumin Globulin Albumin/Globulin Ratio Plasma Lactate Urine Source Urine Color Urine Turbidity Urine pH Ur Specific [place] Urine Protein Ur Glucose (Stick) Ur Ketones (Stick) Urine Blood Urine Nitrite Urine Bilirubin Urobilinogen Dipstick Urine Leukocytes Urine WBC (Auto) Urine RBC (Auto) U Epithel Cells (Auto) Urine Bacteria (Auto) 02/13/17 02/13/17 12:13 15:11 WBC RBC Hgb Hct MCV MCH MCHC RDW Std Deviation Plt Count MPV Immature Gran % (Auto) Neut % (Auto) Lymph % (Auto) Brule % (Auto) Eos % (Auto) Baso % (Auto) Immature Gran # (Auto) Neut # (Auto) Lymph # (Auto) Brule # (Auto) Eos # (Auto) Baso # (Auto) PT INR PTT (Actin FS) Sodium Potassium Chloride Carbon Dioxide Anion Gap BUN Creatinine Estimated GFR/1.73 m2 BUN/Creatinine Ratio Glucose POC Glucose Calculated Osmolality Calcium Magnesium Total Bilirubin AST ALT Alkaline Phosphatase Creatine Kinase Troponin T Not-L-Imulwsudjde Pept Total Protein Albumin Globulin Albumin/Globulin Ratio Plasma Lactate 1.8 Urine Source CLEAN CATCH Urine Color YELLOW Urine Turbidity HAZY Urine pH 6.0 Ur Specific [place] 1.025 Urine Protein 200 A Ur Glucose (Stick) NEGATIVE Ur Ketones (Stick) NEGATIVE Urine Blood NEGATIVE Urine Nitrite NEGATIVE Urine Bilirubin SMALL A Urobilinogen Dipstick 2 A Urine Leukocytes LARGE A Urine WBC (Auto) TNTC A Urine RBC (Auto) <10 U Epithel Cells (Auto) <10 Urine Bacteria (Auto) NEGATIVE Orders Category Date [facility] Routine AdmDCTranf 02/13/17 16:25 Ordered Activity - Up with Assistance ORDERED Care 02/13/17 16:25 Active Cardiac Monitoring DIRECTED Care 02/13/17 11:35 Completed DVT/PE Risk Assess/Protocol [QM] ORDERED Care 02/13/17 16:25 Active Intake and Output-Strict ORDERED Care 02/13/17 16:25 Active Misc. NRSG Communication Order DIRECTED Care 02/13/17 11:38 Completed Nursing- MD Consult Request ROUTINE Care 02/13/17 16:25 Active Saline Loc NOW Care 02/13/17 11:35 Completed Vital Signs Order Q 4-HR ASSESS Care 02/13/17 16:25 Active Z-Document. for Tele Applied ORDERED Care 02/13/17 16:25 Active Physician/Provider Consults Routine Cons 02/13/17 16:18 Ordered Heart Healthy Diet Diet 02/13/17 13:22 Active CHEST-PORTABLE [RAD] Stat Exams 02/13/17 11:35 Completed BASIC METABOLIC PANEL [CHEM] DAILY Lab 02/14/17 06:00 Ordered BASIC METABOLIC PANEL [CHEM] DAILY Lab 02/15/17 06:00 Ordered BASIC METABOLIC PANEL [CHEM] DAILY Lab 02/16/17 06:00 Ordered BLOOD CULTURE [BLDCUL] Stat Lab 02/13/17 15:09 Received CBC WITH ELECTRONIC DIFF [HEME] Stat Lab 02/13/17 11:40 Completed CBC WITH NO DIFF [HEME] DAILY Lab 02/14/17 06:00 Ordered CBC WITH NO DIFF [HEME] DAILY Lab 02/15/17 06:00 Ordered CBC WITH NO DIFF [HEME] DAILY Lab 02/16/17 06:00 Ordered CK PROFILE [SP CHEM] Q8H Lab 02/13/17 16:18 Uncollected CK PROFILE [SP CHEM] Q8H Lab 02/14/17 00:18 Uncollected CK PROFILE [SP CHEM] Q8H Lab 02/14/17 08:18 Uncollected CK PROFILE [SP CHEM] Stat Lab 02/13/17 11:40 Completed COMPREHENSIVE METABOLIC PANEL [CHEM] Stat Lab 02/13/17 11:40 Completed LACTATE, PLASMA [CHEM] Stat Lab 02/13/17 15:11 Completed MAGNESIUM [CHEM] DAILY Lab 02/15/17 06:00 Ordered MAGNESIUM [CHEM] DAILY Lab 02/16/17 06:00 Ordered MAGNESIUM [CHEM] DAILY Lab 02/17/17 06:00 Ordered MAGNESIUM [CHEM] Stat Lab 02/13/17 11:40 Completed PRO B-NATRIURETIC PEPTIDE Stat Lab 02/13/17 11:40 Completed PROTIME WITH INR [COAG] Stat Lab 02/13/17 11:40 Completed PTT [COAG] Stat Lab 02/13/17 11:40 Completed TROPONIN T Stat Lab 02/13/17 11:40 Completed UA NIMS W/REFLEX CULT [URINALYSIS] Stat Lab 02/13/17 12:13 Completed UR CHLORIDE [URCHEM] Timed Lab 02/13/17 16:18 Ordered UR CREAT RANDOM [URCHEM] Timed Lab 02/13/17 16:18 Ordered UR OSMOLALITY [CHEM] Timed Lab 02/13/17 16:18 Ordered URINE CULTURE [RM] Routine Lab 02/13/17 12:28 Received 0.9% Sodium Chloride Inj [Ns] 1,000 ml Med 02/13/17 16:16 Active IV 125 mls/hr 0.9% Sodium Chloride Inj [Ns] 500 ml Med 02/13/17 12:29 Discontinued IV 999 mls/hr Aspirin Med 02/14/17 09:00 Active 325 mg PO DAILY CefTRIAXONE [Rocephin] 1 gm Med 02/13/17 12:29 Discontinued 0.9% Sodium Chloride Inj [Ns] 50 ml IV NOW CefTRIAXONE [Rocephin] 1 gm Med 02/14/17 13:00 Active 0.9% Sodium Chloride Inj [Ns] 50 ml IV Q24H Clonazepam [Klonopin] Med 02/13/17 21:00 Active 0.5 mg PO HS Multivit,Fe,Ca,FA & Min [Thera M Plus] Med 02/14/17 09:00 Active 1 each PO DAILY Sodium Polystyrene [Kayexalate] Med 02/13/17 12:29 Discontinued 30 gm PO NOW ONE Telemetry [OM.EQ] Routine Oth 02/13/17 16:25 Active EKG [EKG] Stat Ther 02/13/17 11:35 Ordered Transfer/Admit Order [TRANSFER] Routine Transfer 02/13/17 16:05 Completed Patient alert and oriented. Neuro intact. Several recent near syncopal episodes. Interrogated pacemaker here which shows no signs of VT or episodes of bradyacardia below 40 bpm. Unclear the source of his syncope. He denies any chest pain or dyspnea. He does show a severe UTI which could be the source. We will admit for monitoring, IV abx. Case and plan of care discussed with Dr. Kendall. Result Diagrams: 02/13/17 11:40 02/13/17 11:40 - EKG 1 Time of EKG reading by physician:: 11:30 EKG Read and Signed by:: Herminio Kendall EKG Interpretation (*Must complete 3 of following elements*): Abnormal Rate: 53 Rhythm: Sinus Bradycardia [place]: left QRS: other (nonspecific intraventricular block) ST Wave: non-specific ST changes - XRAY 1 XRAY Study: Chest Impression: Abnormal XRAY Interpretation: CMG - CONSULTS/PCP/HOSPITALIST Notification #1 *Consult/PCP/Hospitalist*: SIS Brar for Dr. Honeycutt Time Discussed: 14:34 Consult Disposition: Admit #2 Consult: attempted to contact Dr. Troy but no return call Departure - Departure Date of Disposition Decision: 02/13/17 Time of Disposition Decision: 14:33 DIAGNOSIS: Near syncope, Hyperkalemia UTI (urinary tract infection) Qualifiers: Urinary tract infection type: site unspecified Hematuria presence: without hematuria Qualified Code(s): N39.0 - Urinary tract infection, site not specified CAD (coronary artery disease) Qualifiers: Coronary Disease-Associated Artery/Lesion type: unspecified vessel or lesion type [place] vs. transplanted heart: unspecified whether [place] or transplanted heart Associated angina: angina presence unspecified Qualified Code(s): I25.10 - Atherosclerotic heart disease of [place] coronary artery without angina pectoris Disposition: ADMITTED INPATIENT 09 Certified Medical Emergency: Emergent Condition: Stable - Critical Care Note This patient required my direct & personal management of CC.: No Attestation - Physician/ ROSEMARY Attestation Patient care was provided by Advanced Practice Provider:: Yes Advanced Practice Provider:: Abiodun Fuentes Advanced Practice Provider documentation review:: The Mid-level provider documentation, treatment plan and medical decision making was reviewed by the physician who agrees with all treatment and medical decision making by the MLP. The physician spent face to face time with patient:: No Advanced Practice Provider documentation review:: Supervising physician onsite and consulted in the evaluation and care of this patient. The physician did not have a face to face encounter with the patient. This chart was documented by the indicated scribe, (Sudhir Dykes, Imelda) and accurately reflects the services I performed and decisions made by me, Abiodun Fuentes, PA, as attested by the provider's signature.
[2017-02-13] MEDS: NS 1,000 ML IV SCH (17:56)
--- NOTE | 2017-02-13 18:36 | HISTORY AND PHYSICAL ---
CHIEF COMPLAINT: Near syncope and hypotension. HISTORY OF PRESENT ILLNESS: Mr. Reddy is a 66-year-old male known to our service. He has a history of severe CAD status post MA, systolic heart failure, ischemic cardiomyopathy, who recently had stents placed around 10 weeks ago. He was following up with Dr. Troy today and became hypotensive and had near a syncopal episode and was sent here. He denies any chest pain. Since that time, he has had his ICD evaluated. There is no malignant arrhythmia noted per ER documentation. However, his blood pressure has been quite low. He has been having some issues with that over the past few days and weeks. He has been monitoring his blood pressure carefully. He has gotten as high as 115 systolic but as low as 90 systolic. When I came in the room it was 78 systolic. His creatinine is noted to be elevated today more than usual at 1.7 with a BUN of 30. He reports that he only drinks sweet tea and does not stay very hydrated. He also has a UTI and mild hyperkalemia which he was given Kayexalate for. He denies any fever, chills, cough, congestion, shortness of breath, or chest pain. No abdominal pain, nausea, vomiting, or diarrhea. No lower extremity edema or orthopnea to speak of. His blood pressure has come up to 106/57, but his heart rate 53 beats per minute. He is not febrile and in no distress. As such, he is going to be admitted for further treatment and evaluation. PAST MEDICAL HISTORY: 1. Ischemic cardiomyopathy. 2. Severe CAD. 3. Systolic heart failure. 4. Depression. 5. Hyperlipidemia. 6. GERD. PAST SURGICAL HISTORY: CABG, nephrectomy for donation, cholecystectomy, appendectomy. SOCIAL HISTORY: Patient denies tobacco or drug use. He reports very rare occasional alcohol. Is retired from . FAMILY HISTORY: Significant for CAD. REVIEW OF SYSTEMS: Fourteen-point review of systems obtained and found to be negative with the exception of the HPI. HOME MEDICATIONS: Aspirin 81 mg daily, Lipitor 40 mg p.m., fluticasone b.i.d., Lasix 20 mg daily, Prinivil 5 mg b.i.d., metoprolol succinate 50 mg daily, Singulair 10 mg as needed, multivitamin 1 daily, nitroglycerin if needed for chest pain, fish oil 2000 mg b.i.d., omeprazole 20 mg daily, paroxetine 10 mg daily, Effient 10 mg daily, Aldactone 12.5 mg daily. Tramadol 50 mg as needed for pain. ALLERGIES: No known drug allergies. PHYSICAL EXAMINATION: VITAL SIGNS: Blood pressure is 93/55, heart rate is 50, respiratory rate 31, O2 saturation 100% on room air, temperature is 97.6 degrees. GENERAL: This is a chronically ill-appearing, 66-year-old male, lying in hospital bed. No acute distress. NEUROLOGIC: The patient is awake, alert, oriented. Follows commands without focal deficits. HEENT: Head is atraumatic, normocephalic. His pupils are equal, round, reactive to light. Oral mucosa is dry. Trachea is midline. No JVD or carotid bruits. CHEST: Clear to auscultation bilaterally. CV: Regular rate and rhythm. S1, S2 is noted. GI: Soft, nondistended, nontender. Bowel sounds positive. EXTREMITIES: No edema, clubbing, or cyanosis. Pulses are palpable bilaterally. DIAGNOSTIC DATA: Chest x-ray shows mild cardiomegaly, nothing acute. WBC 9.67 , hemoglobin 13.1, hematocrit 39.5, platelet count is 189,000. INR is 1.03. Sodium 134, potassium 5.5, chloride 100, CO2 21, anion gap 13, BUN 30, creatinine 1.7, glucose is 122. LFTs within normal limits. ProBNP 1,791. Troponin negative. Lactate 1.8. UA does show a urinary tract infection. ASSESSMENT AND PLAN: 1. Hypotension: Likely volume mediated on top of use of antihypertensives and low EF. We will check orthostatic vital signs. Add light IV fluids given his MATTHEW. Trend his enzymes and consult cardiology. We will hold off on any antihypertensives. 2. Acute kidney injury: It appears the patient has had renal insufficiency in the past so will stop his RYAN for now, add IV fluids, and try and get his blood pressure up. If he has no improvement in next 12-24 hours would consider renal ultrasound and renal consultation. 3. Hyperkalemia: Likely MATTHEW plus RYAN use. We will stop the Ryan. Kayexalate has already been given. We will check another K in morning. 4. Systolic congestive heart failure: Not in exacerbation. We will need to be careful with fluids but he certainly is volume depleted, so will give him that at a slow rate. 5. Severe coronary artery disease: Patient denies any chest pain. We will continue his aspirin. Consult Dr. Troy. Continue him on telemetry and trend his enzymes. Most recent echocardiogram shows 30% EF with multiple areas of wall motion abnormalities. 6. Urinary tract infection: We will continue Rocephin, started in the ER. 7. Deep vein thrombosis prophylaxis with Lovenox. Further recommendations to follow. Dictated by SIS Taylor for Kade Ruiz MD cc: SIS Taylor MD I have seen and and examined patient. I have provided face to face evaluation. I have also reviewed his labs and imagine studies. Patient presents with syncope 2/2 hypotension. I think he is volume depleted from diuretics. The above plan is a reflexion of my opinion.ROGELIOQ TEJA
[2017-02-13 18:51] LABS: UR CREAT RANDOM 240.5 mg/dL (14-26)
[2017-02-13] MEDS: KLONOPIN PO SCH (20:42)
[2017-02-14 05:07] LABS: HEMATOCRIT 34.6 % (42.0-52.0); HEMOGLOBIN 11.3 g/dL (14.0-18.0); MCH 33.1 PG (27-31); MCHC 32.7 g/dL (33-37); MCV 101.5 FL (81-99); MPV 10.5 FL (7.4-10.4); RBC 3.41 XMIL (4.7-6.1)
--- NOTE | 2017-02-14 05:34 | EKG Report ---
Test Performed on : 02/13/2017 5:05:00 PM Test Reason : Chest Pain Blood Pressure : / mmHG Vent. Rate : 054 BPM Atrial Rate : 054 BPM P-R Int : 150 ms QRS Dur : 118 ms QT Int : 488 ms P-R-T Axes : 028 -43 092 degrees QTc Int : 462 ms Sinus bradycardia. Left axis deviation Inferior infarct (cited on or before 05-NOV-2012) Cannot rule out Anterior infarct (cited on or before 09-JAN-2017) T wave abnormality, consider lateral ischemia Abnormal ECG When compared with ECG of 09-JAN-2017 21:49, premature atrial complexes. are no longer present Unconfirmed Result
[2017-02-14 06:00] LABS: CALCIUM 8.4 mg/dL (8.8-10.2); POTASSIUM 4.6 mmol/L (3.5-5.1)
[2017-02-14] MEDS: NS 1,000 ML IV SCH (06:32)
--- NOTE | 2017-02-14 06:44 | CONSULTATION ---
DATE OF CONSULTATION: 02/13/2017 IMPRESSION: 1. Hypotension, probably related to intravascular volume depletion. 2. Atherosclerotic coronary disease and ischemic cardiomyopathy. A) Status post coronary bypass grafting in 2001. B) Status post angioplasty with stenting of proximal saphenous vein graft to diagonal, which in effect collateralized remainder of the coronary system. Right coronary artery, left internal mammary artery graft, and saphenous vein graft to right coronary were all occluded. C) Status post angioplasty/stenting of proximal saphenous vein graft to diagonal earlier this year. D) Status post more recent angioplasty/stenting of severe stenosis in left main coronary after patient presented with recurrent ventricular arrhythmias. E) Severe ischemic cardiomyopathy with left ejection fraction approximately 20-25% on echocardiography today. Patient is status post implantable defibrillator. 3. Paroxysmal ventricular tachycardia. Patient recently started on amiodarone. 4. Hypertension. 5. Hyperlipidemia. RECOMMENDATIONS: 1. Agree with cautious intravenous hydration. 2. Discontinue Ranexa, given the patient is also on amiodarone. 3. Reduce beta luh. HISTORY: This 66-year-old white male with past history of complex atherosclerotic coronary disease as outlined above, previous coronary bypass grafting in 2001, ischemic cardiomyopathy, hypertension, paroxysmal ventricular tachycardia, and hyperlipidemia came into clinic today for followup. He was recently hospitalized in [place] after he presented with paroxysmal ventricular tachycardia. In [place] he had repeat evaluation with coronary angiography. Saphenous vein graft to diagonal was patent. In effort to improve his coronary perfusion, he underwent angioplasty/stenting of severe stenosis in left main coronary artery. He is also started on amiodarone. Since discharge, he has continued without angina. He is not aware of any palpitations or defibrillator activity. He came in for routine followup today and while in the office developed lightheadedness and hypotension. There has been no chest pain. Blood pressure was around 70-75 systolic. He was referred to the emergency room for evaluation. He started on gentle IV fluids and his blood pressure has improved. PAST MEDICAL HISTORY: 1. Atherosclerotic coronary disease as outlined above. 2. Hypertension. 3. Hyperlipidemia. 4. Ischemic cardiomyopathy. 5. Obesity. 6. Status post implantable defibrillator. 7. Gastroesophageal reflux. 8. Depression. PAST SURGICAL HISTORY: 1. Coronary bypass grafting. 2. Nephrectomy for donation. 3. Cholecystectomy. 4. Appendectomy. ALLERGIES: He has no known drug allergies. MEDICATIONS: Prior to admission as listed. SOCIAL HISTORY: He does not smoke. Drinks infrequent alcoholic beverage. He is retired from [employer]. He is . FAMILY HISTORY: Positive for coronary disease. REVIEW OF SYSTEMS: Pulmonary: Noncontributory. Gastrointestinal: Noncontributory. Constitutional: Noncontributory. Remainder of review of systems noncontributory beyond history present illness, with 14 total systems reviewed. PHYSICAL EXAMINATION: General: Reveals a pleasant, overweight older middle-aged white male, in no distress. Vital signs: Blood pressure now 120/60, heart rate 51 and regular, with ECG monitor showing sinus bradycardia. HEENT: Extraocular muscles appear intact. Mucous membranes are moist. Neck: Supple without jugular distention. There are no carotid bruits. Chest: Clear to auscultation. Cardiac Examination: Reveals a regular rate and rhythm without appreciable murmur or gallop. Abdomen: Soft, nontender. Bowel sounds are normal. Extremities: Without edema. Neurologic Examination: Reveals him to be alert and fully oriented. Speech is fluent. Moves all 4 extremities equally well. Skin: Warm and dry. Psychiatric Examination: Reveals his mood to be appropriate. DIAGNOSTIC DATA: Echocardiography preliminary shows left ventricular enlargement with left ventricular ejection fraction approximately 20-25%. Inferior and inferolateral akinesis demonstrated. cc: Dale Troy MD
[2017-02-14] MEDS: ASPIRIN PO SCH (09:25)
[2017-02-14] MEDS: THERA M PLUS PO SCH (09:25)
[2017-02-14] MEDS ORDERED: ULTRAM PO PRN (10:13)
[2017-02-14] MEDS ORDERED: VENTOLIN HFA INH PRN (10:13)
[2017-02-14] MEDS ORDERED: NITROGLYCERIN SL PRN (10:13)
[2017-02-14] MEDS ORDERED: PRILOSEC PO SCH (10:15)
[2017-02-14] MEDS ORDERED: PAXIL PO SCH ×2 (10:15→21:00)
[2017-02-14] MEDS ORDERED: LIPITOR PO SCH ×2 (10:15→21:00)
[2017-02-14] MEDS: SINGULAIR PO SCH (11:05)
[2017-02-14] MEDS: TOPROL XL PO SCH (11:05)
[2017-02-14] MEDS: ALDACTONE PO SCH (11:05)
[2017-02-14] MEDS: EFFIENT PO SCH (11:05)
[2017-02-14] MEDS: CORDARONE PO SCH (11:05)
[2017-02-14] MEDS: FLONASE NAS SCH (11:06)
[2017-02-14] MEDS: ROCEPHIN 1 GM in NS 50 ML IV SCH (12:55)
--- NOTE | 2017-02-14 13:37 | ECHO REPORT ---
ORDER DATE: 02/13/2017 INDICATION FOR THE STUDY: A pericardial effusion. This is a limited study done to evaluate pericardial effusion. Very limited images, measurements and Doppler evaluations were performed. FINDINGS: 1. The left ventricle appears dilated. There does appear to be reduction in the left ventricular ejection fraction. This is on the order of 30%. This would be consistent with his previous echocardiogram approximately 1 month ago. 2. There is mild tricuspid regurgitation with an RV systolic pressure of 42. 3. No mitral valve prolapse. Mild mitral regurgitation. 4. Two dimensional evaluation of the aortic valve shows that it opens quite well. 5. No pericardial effusion is identified. cc: MD Kade Blanco MD
--- NOTE | 2017-02-14 17:57 | PROGRESS NOTE ---
DATE: 02/14/2017 SUBJECTIVE: Today, Mr. Reddy referred to be doing a little better. Denies any chest pain. He has not had any more dizzy spells. OBJECTIVE: Vitals: Blood pressure is 115/46 with a pulse of 62, respiration is 14, temperature 97.8 degrees. General: Mr. Reddy is a 66-year-old male. He was sitting up in a chair, was not in any distress. HEENT: Mucosa is pink and moist. Anicteric. Acyanotic. Neck: Supple. Chest: Good air entry bilateral. No crepitations. No rhonchi. Cardiovascular: Regular rate and rhythm. On the chest wall there is an old sternotomy scar witnessed. Abdomen: Soft, nontender, distended. Bowel sounds are present. No hepatosplenomegaly. Extremities: No pedal edema. 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 There is no focal neurological deficit. LABORATORY DATA: WBC is 8.18, hemoglobin is 13.3, platelet count of 156,000. Chemistry is also reviewed. Creatinine is 1.7, the same as yesterday. BUN is 31, slightly increased from yesterday. Blood cultures are still pending. Urine culture is negative. However, the urinalysis was remarkably abnormal. ASSESSMENT: 1. Near-syncope likely secondary to multiple etiologies, but I think the most driving force was the hypotension. 2. Hypotension. Blood pressure is now better. We think it is a combination of medications as well as possible sepsis. 3. Acute kidney injury. We will continue with IV fluids. Creatinine continues to be 1.7, has not shown any changes. Patient's creatinine was normal just last month. So will would continue gentle hydration, withhold the JESSY inhibitors and the diuretics and repeat the electrolytes for tomorrow. 4. Systolic congestive heart failure. Currently, patient is stable. 5. Severe coronary artery disease status post coronary artery bypass graft and stent. 6. Suspected urinary tract infection. The patient might have been given antibiotics before the urine sample , so it is very possible that the culture could be negative. We will continue with the antibiotics at least for 3 days until the blood culture is known before we will discontinue this. PLAN: So in general I think Mr. Reddy is relatively stable. He is getting better. Does not feel anymore dizziness or have any orthostatic symptoms. We will continue with the gentle hydration. We will continue with the antibiotics. Hopefully by tomorrow we will be able to discharge Mr. Reddy. cc: MD TEJA Choi
[2017-02-14] MEDS: KLONOPIN PO SCH (20:51)
[2017-02-15 05:13] LABS: HEMATOCRIT 34.2 % (42.0-52.0); HEMOGLOBIN 11.2 g/dL (14.0-18.0); MCH 33.4 PG (27-31); MCHC 32.7 g/dL (33-37); MCV 102.1 FL (81-99); RBC 3.35 XMIL (4.7-6.1)
[2017-02-15 05:30] LABS: POTASSIUM 4.9 mmol/L (3.5-5.1)
[2017-02-15] MEDS ORDERED: PRILOSEC PO SCH (07:00)
[2017-02-15 07:18] VITALS: BP 117/57
[2017-02-15] MEDS: EFFIENT PO SCH (08:41)
[2017-02-15] MEDS: TOPROL XL PO SCH (08:42)
[2017-02-15] MEDS: ASPIRIN PO SCH (08:42)
[2017-02-15] MEDS: THERA M PLUS PO SCH (08:43)
[2017-02-15] MEDS: FLONASE NAS SCH (08:43)
[2017-02-15] MEDS: CORDARONE PO SCH (08:43)
[2017-02-15] MEDS: ALDACTONE PO SCH (08:43)
[2017-02-15] MEDS: SINGULAIR PO SCH (08:43)
--- NOTE | 2017-02-15 14:53 | PROGRESS NOTE ---
DATE: 02/15/2017 SUBJECTIVE: Today Mr. Reddy referred to be doing fine. Denies any dizziness. OBJECTIVE: Vital signs: His blood pressure is 117/57, pulse is 60, respirations 18, temperature is 98.1. General: Mr. Reddy is a 66-year-old male. He was actually sitting up in a chair. He was not in any distress. Mucosa is pink and moist. Anicteric and acyanotic. Neck is supple. No JVD. No carotid bruit. Cardiovascular: Regular rate and rhythm. No murmurs. Abdomen is soft. Chest: Good entry bilaterally. No crepitations, no rhonchi. Extremities: No pedal edema. 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 There are no focal neurological deficit. DIAGNOSTIC DATA: Laboratory data has been reviewed. The patient's creatinine is 1.5 which is trending down. CBC is also reviewed. Microbiology: Blood cultures 48 hours negative. Urine showed no pathogenic growth. ASSESSMENT: 1. Near syncope at home, secondary to hypotension. 2. Hypotension is improved. We think it is a combination of medication side effects. 3. Acute kidney injury. Creatinine has been improving. Creatinine is down to 1.5. We have withheld the JESSY inhibitor. The patient has been adequately hydrated. He needs to follow up with primary care and Cardiology to make a decision on outpatient basis if JESSY will be restarted. The patient has been advised to recheck on his BMP to recheck on kidney function is about 2 weeks' time. 4. Systolic congestive heart failure. Ejection fraction of 30%. Stable. 5. Severe coronary artery disease, status post CABG and stent. 6. Suspected urinary tract infection. Culture negative. The patient has had 2 days of antibiotics, and he is completely asymptomatic, so we will discontinue the medication. PLAN: In general, Mr. Reddy is now euvolemic, well volume repleted. He is not symptomatic any more. Cultures have been negative. He is going to be discharged. Creatinine is still slightly elevated. The patient has been advised to withhold JESSY inhibitor, recheck on the renal function in about a week to 2 weeks, and a decision will have to be made on an outpatient basis if he is still going to be on the JESSY inhibitor because the patient has a very severe congestive heart failure which he definitely needs JESSY. cc: Kade uRiz MD
[2017-02-15] MEDS: ROCEPHIN 1 GM in NS 50 ML IV SCH (15:34)
--- NOTE | 2017-02-16 14:08 | DISCHARGE SUMMARY ---
ADMISSION DATE: 02/13/2017 DISCHARGE DATE: 02/15/2017 CONSULTATIONS: Dr. Troy with Cardiology. PERTINENT PROCEDURES: 1. Chest x-ray showed mild cardiomegaly. 2. Echocardiogram with limited views showed EF of 30% consistent with echocardiogram 1 month ago. DISCHARGE DIAGNOSES: 1. Near syncope likely secondary to multiple etiologies most likely during course with hypotension now resolved. Beta luh has been reduced. Ranexa has been discontinued. Patient has been adequately hydrated improved. 2. Hypotension improved. 3. Acute kidney injury improved. 4. Systolic congestive heart failure stable. 5. Severe coronary artery disease status post coronary artery bypass graft stable. 6. Suspected urinary tract infection. Patient has previously been on antibiotics. 7. Hyperkalemia resolved. HOSPITAL COURSE: Mr. Reddy is a 66-year-old male known to our service has a history of severe coronary artery disease status post AK, systolic heart failure, ischemic cardiomyopathy recently has since stents placed around 10 weeks ago followed by Dr. Troy. He was at Dr. Troy's office today. He became hypotensive had a near syncopal episode and was sent to the ED. He denied any chest pain. He did have his ICD evaluated and there was no malignant arrhythmias noted. However his blood pressures have been quite low. He was having issues with that over last few days and weeks. He was monitoring his blood pressures carefully at home. He had gotten as high as 115 systolically as well as the 90 systolically, in the room he was 78 systolic, his creatinine was noted to be elevated at 1.7 more elevated than his usual 1.7 with a BUN of 30. He reported he only drinks sweet tea and does not stay very hydrated. He also had a UTI, mild hyperkalemia he was given Kayexalate for. He was admitted started on gentle hydration, trended his cardiac enzymes. Cardiology was consulted held off on any antihypertensive , held off on his JESSY given his acute kidney injury, monitored his potassium, repeated echocardiogram, started IV antibiotics for his UTI and checked orthostatic vital signs. Cardiology reduce his beta luh as well as discontinued his Ranexa given that he was on amiodarone. Mr. Reddy has been stable since admission. He is appropriate for discharge home today. VITAL SIGNS: Temperature is 98.1 degrees, heart rate 60, respirations 18, blood pressure 117/57, O2 is 97% on room air. DISCHARGE DIET: Healthy heart. DISCHARGE MEDICATIONS: 1. 2 puffs inhaled p.r.n. 2. Amiodarone 200 mg p.o. daily. 3. Aspirin 81 mg p.o. daily. 4. Lasix 40 mg p.o. daily. 5. Clonazepam 0.5 mg p.o. at bedtime. 6. Fish oil 2000 mg p.o. daily. 7. Flonase 1 spray nasal daily. 8. Toprol-XL 25 mg p.o. daily. 9. Montelukast sodium 10 mg p.o. daily. 10. Multivitamin daily 1 each p.o. daily. 11. Nitroglycerin 0.4 mg sublingual p.r.n. 12. Prilosec 20 mg p.o. daily. 13. Paxil 10 mg p.o. daily. 14. Effient 10 mg p.o. daily. 15. Spironolactone 25 mg p.o. daily. 16. Tramadol 50 mg p.o. p.r.n. FOLLOWUP: Mr. Reddy is being discharged home. He will follow up with his PCP Tej Gracia as well as Dr. Troy. He can return to the ED for any worsening of symptoms. He is to take all medications as prescribed. Dictated by SIS Marie for Kade Ruiz MD cc: Tej Gracia Time spent for discharge is [address] [facility], [place]
== END 2017-02-15 15:35 | disposition home or self-care (01) ==
LOC: SUPCPDRO → EDIPHOLD 11:20 → ED 11:20 → 3S 19:31
PROVIDERS: ATTEND Internal Medicine

== ENCOUNTER 2019-06-13 13:43 | Inpatient (IN) ==
--- NOTE | 2019-06-13 14:11 | Diag Imaging Result Doc PS360 ---
EXAM: CHEST-1 VIEW 06/13/2019 HISTORY: shortness of breath TECHNIQUE: Erect AP portable at 1403 COMMENT: There is alveolar opacity in the right upper lobe which was not present on 07/17/2017. IMPRESSION: Right upper lobe pneumonia. Electronically signed by Darion Rios 06/13/2019 2:08 PM
[2019-06-13] MEDS ORDERED: VANCOMYCIN 1 GM/NS 1 GM/250 ML IVPB IV ONE (14:12)
[2019-06-13] MEDS ORDERED: NS 1,000 ML IV ONE ×3 (14:12→17:07)
[2019-06-13] MEDS ORDERED: ZOSYN 4.5 GM in NS 100 ML IV SCH (14:15)
[2019-06-13 14:36] LABS: ALLEN TEST YES; BE -7.6 mmoll (-3.0-3.0); BLOOD TYPE ARTERIAL; O2(CT) 17.9 mL/dL (15.0-23.0); O2HB 95.5 % (95.0-99.0); PCO2(98.6) 23 mmHg (35-45); PO2(98.6) 83 mmHg (60-100); SAMPLE BLOOD; SAO2 98.5 % (95.0-100.0); THB 13.3 g/dL (11.5-17.4); pH(98.6) 7.42 (7.35-7.45)
[2019-06-13 14:37] LABS: MODALITY ROOM AIR
[2019-06-13 14:40] LABS: BASO# 0.04 X1000 (0.0-0.2); BASO% 0.2 % (0.0-0.8); EOS# 0.04 X1000 (0.0-0.7); EOS% 0.2 % (0.0-10.0); HEMATOCRIT 40.1 % (42.0-52.0); HEMOGLOBIN 13.3 g/dL (14.0-18.0); IMM GRAN# 0.41 X1000 (0.0-0.04); IMM GRAN% 1.8 % (0.0-0.5); LYMPH# 2.98 X1000 (1.2-3.4); LYMPH% 13.2 % (20.5-51.1); MCH 31.7 PG (27-31); MCHC 33.2 g/dL (33-37); MCV 95.5 FL (81-99); MONO# 1.45 X1000 (0.11-0.59); MONO% 6.4 % (1.7-9.3); MPV 10.7 FL (7.4-10.4); NEUT# 17.71 X1000 (1.4-6.5); NEUT% 78.2 % (42.2-75.2); PLT 227 X1000 (130-400); RDW 15.3 % (11.5-14.5); WBC 22.63 X1000 (4.8-10.8)
[2019-06-13 14:47] LABS: INR 1.05; PROTIME 13.8 Seconds (11.0-16.0)
[2019-06-13 14:48] LABS: PTT 22.6 Seconds (22.3-41.8)
[2019-06-13 15:29] LABS: ALB/GLOB RATIO 1.7; ALBUMIN 3.7 g/dL (3.5-5.0); CALCIUM 9.6 mg/dL (8.8-10.2); CREATININE 2.1 mg/dL (0.7-1.2); POTASSIUM 5.6 mmol/L (3.5-5.1); TOTAL BILIRUBIN 1.26 mg/dL (0.20-1.00); TOTAL PROTEIN 5.9 g/dL (6.3-8.3)
[2019-06-13] MEDS ORDERED: NS 500 ML IV ONE (15:32)
[2019-06-13] MEDS ORDERED: HUMULIN R IV ONE (15:35)
[2019-06-13] MEDS ORDERED: NS 800 ML IV ONE (15:35)
[2019-06-13] MEDS ORDERED: PITRESSIN 40 UNIT in NS 100 ML IV SCH (15:45)
[2019-06-13] MEDS ORDERED: EPINEPHRINE 8 MG in D5W 250 ML IV SCH (15:45)
[2019-06-13] MEDS ORDERED: LEVOPHED 8 MG in D5 1/2 NS 250 ML IV SCH (15:45)
--- NOTE | 2019-06-13 16:27 | PROVIDER DOCUMENTATION ---
This chart was entered by Peyman Lira Scribe, acting as scribe for Bill Ramirez MD. HPI-Respiratory General - General Chief Complaint: SEPSIS ALERT - D Stated Complaint: SOB,COUGHING,HIGH BLOOD SUGAR,LOW BP Time Seen by Provider: 06/13/19 14:03 Source: patient Allergies/Adverse Reactions: Patient Allergies Allergy/AdvReac Type Severity Reaction Status Date / Time No Known Allergies Allergy Verified 02/13/17 13:10 Home Medications: Home Medication List Medication Instructions Recorded Confirmed Last Taken Type Multivitamin [Multi-Vitamin Daily] 1 each PO DAILY 11/04/12 08/08/17 02/13/17 08:00 History Amiodarone HCl 200 mg PO DAILY 02/13/17 09/16/17 Unknown History Aspirin 81 mg PO DAILY 02/13/17 08/08/17 02/13/17 08:00 History Atorvastatin Calcium 40 mg PO DAILY 02/13/17 08/08/17 Unknown History Fluticasone 50 Mcg Nasal [place] 2 spray SELINA DAILY PRN 02/13/17 08/08/17 Unknown History [Flonase] Montelukast Sodium 10 mg PO DAILY PRN 02/13/17 08/08/17 Unknown History Nitroglycerin 0.4 mg SL PRN PRN 02/13/17 08/08/17 Unknown History Omeprazole [Prilosec] 20 mg PO DAILY 02/13/17 08/08/17 Unknown History Paroxetine [Paxil] 10 mg PO HS 02/13/17 08/08/17 Unknown History Prasugrel [Effient] 10 mg PO DAILY 02/13/17 08/08/17 Unknown History Ranolazine [Ranexa] 1,000 mg PO BID 02/13/17 08/08/17 Unknown History Tramadol HCl 50 mg PO PRN PRN 02/13/17 08/08/17 Unknown History Metoprolol Succinate E.r. [Toprol 25 mg PO DAILY #60 tablet 02/15/17 08/08/17 Unknown Rx Xl] Furosemide 40 mg PO DAILY 08/08/17 08/08/17 Unknown History Magnesium Oxide 400 mg PO DAILY 08/08/17 08/08/17 Unknown History [place]-3 Fatty Acids/Fish Oil [Fish 1,000 mg PO DAILY 08/08/17 08/08/17 Unknown History Oil 1,000 mg Capsule] Sacubitril/Valsartan [Entresto 24 1 each PO DAILY 08/08/17 08/08/17 Unknown History mg-26 mg Tablet] Amiodarone HCl 400 mg PO BID 09/16/17 09/16/17 Unknown History - History of Present Illness-Resp Nature of Presenting Problem: Pt is a 68 y/o M presents to the ED with SOB, pain with cough, and a productive cough that has worsened over the last week. He reports some N/V today with increase frequency of urination. He denies fever and abdominal pain. He states her has severe CAD and pulmonary disease with a new diagnosis of DM 2. He reports a recent Hospitalization at [facility]. Patient also reports low blood pressure today at home when getting up this morning. Quality of Pain: reports: other (pain with coughing) Severity in ED: reports: moderate Onset/Duration: reports: 1 week ago Timing: reports: still present, getting worse Exposure: reports: unknown cause Cough Quality/Degree: reports: productive cough (clear) Current Respiratory Medication Therapy: Initiated see nurses note, Initiated other (steroids) Modifying Factors: improves with: nothing Associated Symptoms: reports: cough, shortness of breath. denies: fever/chills Similar Symptoms Previously?: Yes Recently seen or treated by another doctor?: Yes Review of Systems - Adult - REVIEW OF SYSTEMS - ADULT Constitutional: reports: no symptoms reported. denies: fever Eyes: reports: no symptoms reported. denies: eye pain Ears, Nose, Mouth & Throat: denies: ear pain, epistaxis Cardiovascular: reports: chest pain (with coughing) Respiratory: reports: cough, excessive sputum production, shortness of breath Gastrointestinal: reports: nausea, vomiting. denies: abdominal pain Genitourinary: reports: frequency. denies: flank pain Musculoskeletal: denies: back pain, neck pain Integumentary: reports: no symptoms reported Neurological: denies: headache/migraines Psychiatric: reports: no symptoms reported. denies: alcohol/drug dependence Endocrine: reports: see HPI, polyuria Hematologic/Lymphatic: reports: no symptoms reported, other (no bleeding) Allergic/Immunologic: reports: no symptoms reported, other (no swelling) Past History - Adult - PAST MEDICAL HISTORY-ADULT Review of Records: reports: Old Records Reviewed, Nursing Assessment Review, Medications Reviewed Cardiovascular: reports: cardiac disease, CAD, HTN, hyperlipidemia, CO Respiratory: reports: asthma, sleep apnea Musculoskeletal: reports: arthritis, chronic pain (back) - PRIOR SURGERIES/PROCEDURES Surgical/Procedure History: reports: CABG, cardiac stent, back/neck (back) - IMMUNIZATION STATUS Childhood Immunizations: See Nurse Assessment Flu Vaccine: See Nurse Assessment - FAMILY HISTORY Family History: reviewed, not pertinent - SOCIAL HISTORY Smoking: non-smoker Substance Use: alcohol Alcohol Use Frequency: occasionally Living Situation: family Physical Exam-General - PHYSICAL EXAM-ADULT Initial Vital Signs Reviewed: Yes - CONSTITUTIONAL General Appearance: alert, mild distress, obese - EYES Eyes: negative: conjuctival exudate, photophobia, sclera injected, scleral icterus - HEAD, EARS, NOSE, MOUTH & THROAT HENMT: normocephalic/atraumatic, moist mucous membranes, pharynx normal. negative: hearing deficit, pharyngeal erythema - NECK Neck: non-tender, supple - RESPIRATORY Respiratory: respiratory distress, crackles, wheezing - CARDIOVASCULAR Cardiovascular: regular rate, rhythm. negative: no edema (1+ LE edema) - GASTROINTESTINAL (ABDOMEN) Abdominal Exam: non tender, soft - MUSCULOSKELETAL Extremity: non-tender, swelling (1+ LE edema). negative: deformity - SKIN Integumentary: normal color, warm/dry. negative: jaundice - NEUROLOGIC Neurologic: grossly normal - PSYCHIATRIC Psych/Mental Status: normal mood/affect, normal thought content, normal thought process - HEART Score HEART Score: History: Slightly Suspicious HEART Score: ECG: Normal HEART Score: Age: > or = 65 Years HEART Score: Risk Factors for Atherosclerotic Disease: > or = 3 Risk Factors or History of Atherosclerotic Disease HEART Score: Troponin: > or = 3x Normal Limit Total HEART Score:: 6 Progress - PLAN OF CARE/RESULTS Progress/Plan/Lab Results: Vital Signs - 8 hr 06/13/19 13:51 Temperature 96.8 F L Pulse Rate 96 H Respiratory Rate 23 Blood Pressure 72/54 O2 Sat by Pulse Oximetry 91 L Laboratory Results - last 24 hr 06/13/19 06/13/19 06/13/19 14:18 14:18 14:18 WBC 22.63 H RBC 4.20 L Hgb 13.3 L Hct 40.1 L MCV 95.5 MCH 31.7 H MCHC 33.2 RDW Std Deviation 15.3 H Plt Count 227 MPV 10.7 H Immature Gran % (Auto) 1.8 H Neut % (Auto) 78.2 H Lymph % (Auto) 13.2 L [place] % (Auto) 6.4 Eos % (Auto) 0.2 Baso % (Auto) 0.2 Immature Gran # (Auto) 0.41 H Neut # (Auto) 17.71 H Lymph # (Auto) 2.98 [place] # (Auto) 1.45 H Eos # (Auto) 0.04 Baso # (Auto) 0.04 PT 13.8 INR 1.05 PTT (Actin FS) 22.6 Specimen Type Sample Site pH pCO2 pO2 HCO3 Base Excess Oxyhemoglobin ABG O2 Sat (Calculated) ABG O2 Saturation ABG Carboxyhemoglobin ABG Methemoglobin Dl Test A-a O2 Difference Total Hemoglobin Lactate Blood Gas Modality FiO2 % Sodium 124 L Potassium 5.6 H Chloride 92 L Carbon Dioxide 14 L Anion Gap 18 BUN 61 H Creatinine 2.1 H Estimated GFR/1.73 m2 32 BUN/Creatinine Ratio 29 Glucose 594 H* Calculated Osmolality 294 Calcium 9.6 Total Bilirubin 1.26 H AST 19 ALT 28 Alkaline Phosphatase 121 Creatine Kinase 30 Troponin T High Sens Total Protein 5.9 L Albumin 3.7 Globulin 2.2 Albumin/Globulin Ratio 1.7 Plasma Lactate Acetone Level 06/13/19 06/13/19 06/13/19 14:18 14:18 14:18 WBC RBC Hgb Hct MCV MCH MCHC RDW Std Deviation Plt Count MPV Immature Gran % (Auto) Neut % (Auto) Lymph % (Auto) [place] % (Auto) Eos % (Auto) Baso % (Auto) Immature Gran # (Auto) Neut # (Auto) Lymph # (Auto) [place] # (Auto) Eos # (Auto) Baso # (Auto) PT INR PTT (Actin FS) Specimen Type Sample Site pH pCO2 pO2 HCO3 Base Excess Oxyhemoglobin ABG O2 Sat (Calculated) ABG O2 Saturation ABG Carboxyhemoglobin ABG Methemoglobin Dl Test A-a O2 Difference Total Hemoglobin Lactate Blood Gas Modality FiO2 % Sodium Potassium Chloride Carbon Dioxide Anion Gap BUN Creatinine Estimated GFR/1.73 m2 BUN/Creatinine Ratio Glucose Calculated Osmolality Calcium Total Bilirubin AST ALT Alkaline Phosphatase Creatine Kinase Troponin T High Sens 87 H Total Protein Albumin Globulin Albumin/Globulin Ratio Plasma Lactate 3.1 H Acetone Level NEGATIVE 06/13/19 14:25 WBC RBC Hgb Hct MCV MCH MCHC RDW Std Deviation Plt Count MPV Immature Gran % (Auto) Neut % (Auto) Lymph % (Auto) [place] % (Auto) Eos % (Auto) Baso % (Auto) Immature Gran # (Auto) Neut # (Auto) Lymph # (Auto) [place] # (Auto) Eos # (Auto) Baso # (Auto) PT INR PTT (Actin FS) Specimen Type ARTERIAL Sample Site R RADIAL pH 7.42 pCO2 23 L pO2 83 HCO3 19.0 L Base Excess -7.6 L Oxyhemoglobin 95.5 ABG O2 Sat (Calculated) 17.9 ABG O2 Saturation 98.5 ABG Carboxyhemoglobin 3.00 H ABG Methemoglobin 0.0 Dl Test YES A-a O2 Difference 38.0 Total Hemoglobin 13.3 Lactate 2.90 H Blood Gas Modality ROOM AIR FiO2 % 21.0 Sodium Potassium Chloride Carbon Dioxide Anion Gap BUN Creatinine Estimated GFR/1.73 m2 BUN/Creatinine Ratio Glucose Calculated Osmolality Calcium Total Bilirubin AST ALT Alkaline Phosphatase Creatine Kinase Troponin T High Sens Total Protein Albumin Globulin Albumin/Globulin Ratio Plasma Lactate Acetone Level Orders Category Date Time Status Cardiac Monitoring DIRECTED Care 06/13/19 13:56 Active Graves Cath Insertion ORDERED Care 06/13/19 15:32 Active IV Insertion ORDERED Care 06/13/19 13:56 Completed IV Insertion ORDERED Care 06/13/19 15:32 Active Intake and Output-Strict ORDERED Care 06/13/19 15:32 Active Notify MD of + Sepsis Screen NOW Care 06/13/19 13:56 Active Notify MD/PA/COMMISSIONS ANALYST for exam NOW Care 06/13/19 15:32 Active CHEST-1 VIEW [RAD] Stat Exams 06/13/19 13:56 Completed ABG [RESP] Routine Lab 06/13/19 14:25 Completed ACETONE SERUM [CHEM] Stat Lab 06/13/19 14:18 Completed BLOOD CULTURE [BLDCUL] Stat Lab 06/13/19 14:30 Results CBC WITH DIFF [HEME] Stat Lab 06/13/19 14:18 Completed CK PROFILE [SP CHEM] Stat Lab 06/13/19 14:18 Completed COMPREHENSIVE METABOLIC PANEL [CHEM] Stat Lab 06/13/19 14:18 Completed LACTATE, PLASMA [CHEM] Lab 06/13/19 14:18 Completed LACTATE, PLASMA [CHEM] Lab 06/13/19 17:00 Uncollected LACTATE, PLASMA [CHEM] Lab 06/13/19 20:00 Uncollected PROTIME WITH INR [COAG] Stat Lab 06/13/19 14:18 Completed PTT [COAG] Stat Lab 06/13/19 14:18 Completed TROPONIN T HIGH SENSITIVITY Stat Lab 06/13/19 14:18 Completed URINALYSIS W/POSS RFLX CULT [URINALYSIS] Stat Lab 06/13/19 13:56 Uncollected 0.9% Sodium Chloride Inj [Ns] 1,000 ml Med 06/13/19 14:12 Discontinued IV 999 mls/hr 0.9% Sodium Chloride Inj [Ns] 100 ml Med 06/13/19 15:45 Active Vasopressin [Pitressin] 40 unit IV As Directed mls/hr 0.9% Sodium Chloride Inj [Ns] 500 ml Med 06/13/19 15:32 Discontinued IV 999 mls/hr 0.9% Sodium Chloride Inj [Ns] 800 ml Med 06/13/19 15:35 Active IV 800 mls/hr Dextrose 5%-0.45% NaCl Inj [D5 1/2 Ns] 250 ml Med 06/13/19 15:45 Active Norepinephrine [Levophed] 8 mg IV As Directed mls/hr Dextrose 5%-Water Inj [D5w] 250 ml Med 06/13/19 15:45 Active Epinephrine 8 mg IV As Directed mls/hr Insulin Human Regular [Humulin R] Med 06/13/19 15:35 Discontinued 10 unit IV NOW ONE Piperacillin/Tazobactam [Zosyn] 4.5 gm Med 06/13/19 14:15 Active 0.9% Sodium Chloride Inj [Ns] 100 ml IV Q6H Vancomycin 1 gm/Ns Med 06/13/19 14:12 Discontinued 1 gm in 250 ml IV NOW Oxygen Device Stat Oth 06/13/19 13:56 Active Transfer/Admit Order [TRANSFER] Routine Transfer 06/13/19 15:28 Ordered Result Diagrams: 06/13/19 14:18 06/13/19 14:18 - REASSESSMENT Reassessment #1 Status: other (Scribe note reviewed and updated.) Reassessment #2 Status: improving (Pt sitting comfortably in bed. No current chest pain. Mild elevation in troponin at 87. Will repeat troponin. EKG did not have ischemic changes, suspect elevation 2/2 sepsis or CHF. Will continue to monitor.) Reassessment #3 Status: other (Pateint has been accepted by the hospitalist team.) - EKG 1 Time of EKG reading by physician:: 13:47 EKG Read and Signed by:: Dat Cordero EKG Interpretation (*Must complete 3 of following elements*): Abnormal Rate: 95 Rhythm: NSR QRS: LVH Comments: left anterior fascicular block - XRAY 1 XRAY Study: Chest Impression: Abnormal ( EXAM: CHEST-1 VIEW 06/13/2019 HISTORY: shortness of breath TECHNIQUE: Erect AP portable at 1403 COMMENT: There is alveolar opacity in the right upper lobe which was not present on 07/17/2017. IMPRESSION: Right upper lobe pneumonia. Electronically signed by Darion Rios 06/13/2019 2:08 PM 06/13/19 1408 Interpreting Physician: Darion Rios MD Dictated Date/Time: 06/13/19 1408 cc: Dat Cordero DO; Tej Gracia), See EMR Report ( Patient: VERONICA TANNER EADM Date: 06/13/19MR#: [id number] : 1950DM Status: PRE ERAcct#: [id number] Age/Sex: 68/MRoom/Bed: Loc: ED Ordering Physician: Dat Cordero DO Family Physician: Tej Gracia Reason for Procedure: shortness of breath ___ Signed EXAM: CHEST-1 VIEW 06/13/2019 HISTORY: shortness of breath TECHNIQUE: Erect AP portable at 1403 COMMENT: There is alveolar opacity in the right upper lobe which was not present on 07/17/2017. IMPRESSION: Right upper lobe pneumonia. Electronically signed by Darion Rios 06/13/2019 2:08 PM 06/13/19 1408 Interpreting Physician: Darion Rios MD Dictated Date/Time: 06/13/19 1408 cc: Dat Cordero DO; Tej Gracia) - CONSULTS/PCP/HOSPITALIST Notification #1 *Consult/PCP/Hospitalist*: Hospitalist: Joseph. Spoke with Courtney Time Discussed: 15:08 Reason/Comments: Admission Consult Disposition: Will see in ED (Request BNP before accepting) Departure - Departure Date of Disposition Decision: 06/13/19 Time of Disposition Decision: 16:25 DIAGNOSIS: Community acquired bacterial pneumonia Sepsis Qualifiers: Sepsis type: sepsis due to unspecified organism Sepsis acute organ dysfunction status: with acute organ dysfunction Severe sepsis acute organ dysfunction type: acute renal failure Acute renal failure type: unspecified Severe sepsis shock status: without septic shock Qualified Code(s): A41.9 - Sepsis, unspecified organism; R65.20 - Severe sepsis without septic shock; N17.9 - Acute kidney failure, unspecified Disposition: ADMITTED INPATIENT 09 Certified Medical Emergency: Emergent Condition: Fair - Critical Care Note This patient required my direct & personal management of CC.: No Attestation - Physician/ ROSEMARY Attestation Patient care was provided by Advanced Practice Provider:: No The physician spent face to face time with patient:: Yes Advanced Practice Provider documentation review:: Supervising physician onsite and consulted in the evaluation and care of this patient. The physician did have a face to face encounter with the patient. This chart was documented by the indicated scribe, (Peyman Lira Scribe) and accurately reflects the services I performed and decisions made by me, Bill Ramirez MD, as attested by the provider's signature.
[2019-06-13] MEDS ORDERED: VANCOMYCIN IV PER PHARMACY MISC SCH (17:15)
--- NOTE | 2019-06-13 17:59 | SEPSIS: TISSUE PERFUSION ASSMT ---
Sepsis: Tissue Perfusion Assmt - Physical Exam Assessment Date: 06/13/19 Time Assessment Initialized: 17:55 Vital Signs: Last Vital Signs Temp 96.8 F L 06/13/19 13:51 Pulse 81 06/13/19 16:17 Resp 25 H 06/13/19 16:17 BP 105/58 06/13/19 16:17 Pulse Ox 98 06/13/19 16:17 Height 5 ft 9 in Weight 205 lb Lung Sounds:: wheezing Heart Sounds:: Regular Capillary Refill Time: Less Than 2 Seconds Peripheral Pulse Evaluation:: radial (R): 2+, radial (L): 2+, dorsalis-pedis (R): 2+, dorsalis-pedis (L): 2+ Skin Exam:: pale - Impression Impression:: Tissue Perfusion Adequate - Plan Plan:: No Change
--- NOTE | 2019-06-13 18:16 | EKG Report ---
Test Performed on : 06/13/2019 1:47:53 PM Test Reason : SOB Blood Pressure : / mmHG Vent. Rate : 095 BPM Atrial Rate : 095 BPM P-R Int : 140 ms QRS Dur : 120 ms QT Int : 376 ms P-R-T Axes : 008 -61 120 degrees QTc Int : 472 ms Normal sinus rhythm. Left anterior fascicular block Left ventricular hypertrophy with QRS widening Possible Lateral infarct (cited on or before 09-JAN-2017) Abnormal ECG When compared with ECG of 13-FEB-2017 17:05, Vent. rate has increased BY 41 BPM Criteria for Inferior infarct are no longer present Questionable change in initial forces of Lateral leads Unconfirmed Result
--- NOTE | 2019-06-13 18:23 | HISTORY AND PHYSICAL ---
This is a 68-year-old gentleman with significant CAD, CHF history, who came in with cough and shortness of breath, which has been an issue over the last week. He left [facility] for similar process on May 15 about a month ago. He had some nausea, vomiting, increasing frequency of urination. He has been diagnosed with an interstitial lung disease, was placed on high-dose steroids and subsequently developed type 2 diabetes. Today blood pressures have been in the 70s. He was a little bit hypoxic, by criteria he was septic but saturations were 91%, no temperature but he had a right upper lobe pneumonia. His white count is 22,000 but he has been on steroids. Creatinine is 2.1 with an unknown baseline and plasma lactate 3 so I do think he at least has initial sepsis. 1. On exam he looked kind of pale, diaphoretic and had pneumonia so septic shock. We will initiate sepsis protocol. Repeat lactate levels and follow closely. He is on broad spectrum antibiotics for pneumonia and we will continue to follow. 2. Hyperglycemia. He does not clearly have evidence of diabetic ketoacidosis. He is acidotic but his bicarb is 14 and sugars 594 so acetone is negative though so we feel like is not likely to be that but we will work aggressively on diabetic control and continue to follow closely. 3. Congestive heart failure. We will have to closely monitor because he has heart failure and renal insufficiency and his creatinine has come up since 2017 but I do not know how far off baseline it is now but I do think at this point he has sepsis and we will need to treated as such. cc: Pedrito Telles MD
[2019-06-13] MEDS: MAXIPIME 1 GM in NS 50 ML IV SCH (18:30)
[2019-06-13] MEDS ORDERED: VANCOMYCIN 800 MG in NS 250 ML IV ONE (18:30)
[2019-06-13] MEDS: PROTONIX IV SCH (18:32)
[2019-06-13] MEDS: SODIUM CHLORIDE 0.9% INJ SCH (18:38)
[2019-06-13] MEDS ORDERED: DUONEB (A & A) INH PRN (18:42)
[2019-06-13] MEDS ORDERED: SOLU-MEDROL IV ONE (18:43)
[2019-06-13] MEDS: HUMALOG SUBQ SCH ×2 (18:55→21:22)
[2019-06-13 19:20] LABS: URINE SOURCE CLEAN CATCH
[2019-06-13 19:21] LABS: BILIRUBIN URINE NEGATIVE (NEGATIVE); BLOOD URINE NEGATIVE (NEGATIVE); COLOR YELLOW; GLUCOSE URINE >1000 mg/dL (NEGATIVE); KETONE URINE NEGATIVE (NEGATIVE); LEUKOCYTES URINE SMALL (NEGATIVE); NITRITE URINE NEGATIVE (NEGATIVE); PROTEIN URINE TRACE mg/dL (NEGATIVE); SP GRAVITY URINE 1.021; TURBIDITY URINE CLEAR (CLEAR); UROBILINOGEN URINE NORMAL (NORMAL)
[2019-06-13 19:22] LABS: UR EPITHELIAL CELLS <10 /HPF (<10); URINE BACTERIA NEGATIVE /HPF; URINE RBC <10 /HPF (<10)
[2019-06-13 19:55] LABS: BASO# 0.04 X1000 (0.0-0.2); BASO% 0.2 % (0.0-0.8); EOS# 0.01 X1000 (0.0-0.7); HEMATOCRIT 35.9 % (42.0-52.0); HEMOGLOBIN 11.6 g/dL (14.0-18.0); IMM GRAN# 0.21 X1000 (0.0-0.04); LYMPH# 3.03 X1000 (1.2-3.4); LYMPH% 14.3 % (20.5-51.1); MCH 31.4 PG (27-31); MCHC 32.3 g/dL (33-37); MCV 97.3 FL (81-99); MONO% 4.7 % (1.7-9.3); MPV 10.3 FL (7.4-10.4); NEUT# 16.89 X1000 (1.4-6.5); NEUT% 79.8 % (42.2-75.2); PLT 156 X1000 (130-400); RBC 3.69 XMIL (4.7-6.1); RDW 15.2 % (11.5-14.5); WBC 21.18 X1000 (4.8-10.8)
[2019-06-13 20:14] LABS: ALB/GLOB RATIO 1.3; CALCIUM 8.6 mg/dL (8.8-10.2); CREATININE 1.9 mg/dL (0.7-1.2); POTASSIUM 5.2 mmol/L (3.5-5.1); TOTAL BILIRUBIN 0.89 mg/dL (0.20-1.00); TOTAL PROTEIN 5.4 g/dL (6.3-8.3)
--- NOTE | 2019-06-13 20:34 | HISTORY AND PHYSICAL ---
PRIMARY CARE PROVIDER: Tej Gracia. PRIMARY ORGANIZATIONAL PSYCHOLOGIST: Dr. Paz. PRIMARY STRAIN TECHNICIAN: Mukesh Sam. CHIEF COMPLAINT: Shortness of breath. HISTORY OF PRESENT ILLNESS: Mr. Kwabena Reddy is a 68-year-old, male, with a medical history of ischemic cardiomyopathy with congestive heart failure and ejection fraction of 30%, which was last documented here January 2017. Also, with history of ventricular tachycardia requiring cardiac ablation, defibrillator, and has a history of coronary artery disease with a CABG x4 in 2001, and he states he has around 8 to 9 cardiac stents. Also, has a history of right nephrectomy that he donated to someone in need. Most recently was diagnosed with interstitial lung disease. He states in early April, he had a 9 to 10 day stay at [facility]. He originally presented with a cough, shortness of breath, and the cough was dry. He had no energy, some fever and chills, body aches. He felt like it was flu-like symptoms, but that was ruled out. He had a chest CT which at that time diagnosed him for the first time with interstitial lung disease. He was followed by Dr. Mukesh Sam who then started him on a scheduled steroid regimen, which then also caused him to have steroid-induced hyperglycemia and now diagnosed with diabetes. He states that after he went home, the cough improved. Dr. Sam started to wean him on his prednisone and the cough returned. It actually returned around 10 days ago, but this time it had more of a wet cough to it. Occasionally, it was productive, but the phlegm was clear. He called Dr. Sam who then increased his prednisone back to 40 mg, but this did not seem to help. He noticed last night, he had much more significant shortness of breath to the point he could not catch his breath and then he came here. Our imaging reveals that there is a right upper lobe pneumonia and this is superimposed by the interstitial lung disease, and he appears to have septic shock as well. We will monitor him in the ICU. It is difficult to give this man a lot of fluids due to his congestive heart failure and cardiomyopathy. He does have elevated lactate. His blood pressure was low. We have added pressors if he needs it, and of course, we are going to consult Pulmonology if needed. PAST MEDICAL HISTORY: 1. Ischemic cardiomyopathy. 2. Systolic congestive heart failure with last ejection fraction recorded as 30% in January 2017. 3. Severe coronary artery disease with a history of VA, had CABG x4 in 2001, and has had 8 to 9 cardiac stents. 4. He has had ventricular tachycardia that required cardiac ablation and pacemaker defibrillator. He is currently on sotalol for that. He used to be on amiodarone, that has been stopped. 5. Depression. 6. Hyperlipidemia. 7. GERD. 8. Recent diagnosis of interstitial lung disease. 9. Recent diagnosis of diabetes mellitus type 2. PAST SURGICAL HISTORY: 1. Coronary artery bypass grafting x4 in 2001. 2. Right nephrectomy that he donated to someone in need. 3. Cholecystectomy. 4. Appendectomy. 5. He states he has had some sort of surgery for Peyronie's disease. 6. Cardiac ablation. 7. Cardiac stents x 8 or 9. 8. Lower back surgery. SOCIAL HISTORY: Denies tobacco, alcohol, or illicit drug use. Lives at home with his . He is retired from . He has never been a smoker. FAMILY HISTORY: Mother had coronary artery disease, stroke, and unknown cancer. Father had an VA at the age of 58. ALLERGIES: Levofloxacin. He states would cause him to have ventricular tachycardia. HOME MEDICATIONS: Have not been reconciled yet, but he states he does not take amiodarone. He actually takes sotalol. He is supposed to take Ranexa. It looks like also Entresto and Effient. Home medications need to be reconciled because that list is actually from 2017. REVIEW OF SYSTEMS: A 14-point review of systems is complete and all were negative, except for those mentioned above in the HPI. He does keep coughing. It does not seem to be productive. He is very short of breath, difficult carrying on a conversation. PHYSICAL EXAMINATION: VITAL SIGNS: Temperature 96.8 degrees, heart rate 81, respiratory rate 25, blood pressure 105/58, O2 saturation 98% on nasal cannula. GENERAL: Mr. Kwabena Reddy is a 68-year-old, male. He is in mild acute distress. He is still able to answer questions appropriately. HEENT: Atraumatic, normocephalic. Pupils equal, round, reactive to light. Extraocular movements intact. Mucous membranes are moist. NECK: Trachea midline. No obvious JVD. CARDIOVASCULAR: S1, S2. Regular rate and rhythm. No rubs, gallops, murmurs. He has 1+ lower extremity pitting edema, +2 dorsalis and radial pulses. Negative for JVD or carotid bruits. PULMONARY: Expiratory wheezes noted throughout. Accessory muscle use and increased work of breathing noted. He is tolerating nasal cannula. GASTROINTESTINAL: Round, soft, nontender, nondistended. Positive bowel sounds x4. EXTREMITIES: Moves all extremities equally. Full range of motion. NEUROLOGIC: A O x3. Follows commands. Sensory is intact. SKIN: Warm, dry, intact, but pale. LABORATORY DATA: White blood cells 22,000, hemoglobin 13, hematocrit 40, platelet count 227,000. INR is 1.05, PTT is 22.6. PH 7.42, pCO2 of 23, PO2 of 83, bicarbonate 19, base excess -7.6, saturation 95%, lactate 2.9, that is on room air. Sodium 124, potassium 5.6, BUN 61, creatinine is 2.1, glucose 594, calcium is 9.6. Bilirubin is 1.26, AST 19, ALT 28. CK 30, troponin is 87. Albumin 3.7, lactate 3.1 and then up to 3.7. Acetone level is negative. IMAGING: EKG: Sinus rhythm, rate 95, QTc 472. Chest x-ray shows the right upper lobe pneumonia. ASSESSMENT AND PLAN: 1. Septic shock likely secondary to pneumonia. He has received IV fluid hydration and broad- spectrum antibiotics. 2. Right upper lobe pneumonia in the setting of interstitial lung disease. Again, antibiotics. 3. Interstitial lung disease. No history of smoking. It was just diagnosed in April. Pulmonary consult, oxygen, nebulizers, steroids. 4. Diabetes mellitus type 2 with hyperglycemia. He has been on steroids for his interstitial lung disease, which has worsened the hyperglycemia. Sliding scale insulin, pattern blood glucoses. 5. Ischemic cardiomyopathy with systolic congestive heart failure, last documented ejection fraction of 30% in January 2017. It might not hurt to get another echocardiogram to re- evaluate. He has received IV fluids for the sepsis, so will be at risk for volume overload. 6. Ventricular tachycardia history. He has had cardiac ablation and he cannot have Levaquin. He has had ventricular tachycardia from it in the past. QTc is okay. He supposed to be on sotalol at home. He was originally on amiodarone, but he is supposed to be on sotalol now, so that dosing needs to get verified so we can resume his home medications. His Entresto, all of that needs to be resumed, so we have to get that verified. 7. Gastroesophageal reflux disease. Proton pump inhibitor once it is evaluated. 8. Deep venous thrombosis prophylaxis. It looks like he may be on Effient at home. Dictated by SIS Starr for Pedrito Telles MD cc: SIS Starr MD [facility]
[2019-06-13] MEDS ORDERED: HUMULIN R SUBQ SCH (21:00)
[2019-06-13] MEDS: HEPARIN SUBQ SCH (21:21)
[2019-06-13] MEDS: DUONEB (A & A) INH SCH ×2 (22:49→22:50)
[2019-06-13] MEDS: PULMICORT INH SCH (22:50)
[2019-06-14] MEDS: HUMALOG SUBQ SCH ×6 (00:39→21:03)
[2019-06-14] MEDS: MELATONIN PO SCH ×2 (00:44→20:03)
[2019-06-14] MEDS: SOLU-MEDROL IV SCH ×3 (02:23→17:31)
[2019-06-14] MEDS: DUONEB (A & A) INH SCH ×5 (03:40→19:11)
[2019-06-14] MEDS: MAXIPIME 1 GM in NS 50 ML IV SCH ×2 (04:57→17:20)
--- NOTE | 2019-06-14 07:20 | Diag Imaging Result Doc PS360 ---
EXAM: CHEST-PORTABLE 06/14/2019 HISTORY: dyspnea TECHNIQUE: AP portable at 0536 COMMENT: There is still alveolar opacity in the upper mid right lung field. This has not changed appreciably since 06/13/2019. IMPRESSION: Right upper lobe pneumonia. Electronically signed by Darion Rios 06/14/2019 7:17 AM
[2019-06-14] MEDS: PULMICORT INH SCH ×2 (07:58→19:11)
[2019-06-14 08:46] LABS: HEMOGLOBIN A1C 10.1 % (4.8-6.0)
[2019-06-14] MEDS: HEPARIN SUBQ SCH ×2 (08:55→20:03)
[2019-06-14] MEDS ORDERED: INVANZ 1 GM/NS 1 GM/50 ML IVPB IV ONE (09:31)
[2019-06-14 10:40] LABS: ALB/GLOB RATIO 1.2; ALBUMIN 2.8 g/dL (3.5-5.0); CALCIUM 8.6 mg/dL (8.8-10.2); CREATININE 1.6 mg/dL (0.7-1.2); POTASSIUM 4.6 mmol/L (3.5-5.1); TOTAL BILIRUBIN 0.58 mg/dL (0.20-1.00); TOTAL PROTEIN 5.2 g/dL (6.3-8.3)
[2019-06-14 11:08] LABS: BASO# 0.02 X1000 (0.0-0.2); BASO% 0.1 % (0.0-0.8); HEMATOCRIT 34.3 % (42.0-52.0); HEMOGLOBIN 10.8 g/dL (14.0-18.0); IMM GRAN# 0.11 X1000 (0.0-0.04); IMM GRAN% 0.7 % (0.0-0.5); LYMPH# 1.75 X1000 (1.2-3.4); LYMPH% 11.2 % (20.5-51.1); MCH 31.1 PG (27-31); MCHC 31.5 g/dL (33-37); MCV 98.8 FL (81-99); MONO# 0.41 X1000 (0.11-0.59); MONO% 2.6 % (1.7-9.3); MPV 10.3 FL (7.4-10.4); NEUT# 13.37 X1000 (1.4-6.5); NEUT% 85.4 % (42.2-75.2); PLT 150 X1000 (130-400); RBC 3.47 XMIL (4.7-6.1); RDW 15.5 % (11.5-14.5); WBC 15.66 X1000 (4.8-10.8)
[2019-06-14] MEDS ORDERED: NS 250 ML ONE (11:16)
[2019-06-14 11:19] LABS: BANDS 8 % (0-1); LYMPHS 4 % (21-51); SEGS 88 % (42-75)
[2019-06-14] MEDS ORDERED: NS 1,000 ML IV ONE (14:02)
[2019-06-14] MEDS ORDERED: LASIX IV ONE (14:02)
[2019-06-14] MEDS ORDERED: ZYVOX 600 MG/D5W 600 MG/300 ML IVPB IV SCH (14:15)
[2019-06-14] MEDS ORDERED: FLONASE NAS PRN (14:32)
[2019-06-14] MEDS ORDERED: NITROGLYCERIN SL PRN (14:32)
[2019-06-14] MEDS ORDERED: ULTRAM PO PRN (14:32)
[2019-06-14] MEDS ORDERED: TESSALON PO PRN (14:34)
[2019-06-14] MEDS ORDERED: PAXIL PO SCH (14:45)
--- NOTE | 2019-06-14 14:52 | PROGRESS NOTE ---
DATE: 06/14/2019 SUBJECTIVE: Patient looks a lot better. He is not struggling to breathe. His mental status seems good. He does kind of have a very pale ashy look, but that has been the way it has been. OBJECTIVE: Blood pressure 113/67, heart rate 65, respiratory 18, temperature 98.4 degrees, 97% on room air.Cardiovascular: Regular rate and rhythm. Pulmonary: Bilateral breath sounds clear to auscultation. GI: Soft, nontender, nondistended. Bowel sounds are positive. LABORATORY DATA: White count is down to 15, hemoglobin and hematocrit 10 and 34, platelets of 150,000, still 8% bands. BUN and creatinine are down to 48 and 1.6, sodium 133, bicarb 17, sugar 262 which is down from over 500, so improved there. PROBLEM LIST: 1. Septic shock associated with pneumonia. I think the acute phase of sepsis has resolved. His kidney function is improving. His white count is coming down. He does have gram-negative rods in his blood stream, so I would cover with cefepime which we are doing. We had put him on Zyvox but we may stop that after we get the final culture results tomorrow. 2. Acute kidney injury. He seems to be doing better from that standpoint. We will continue hydration for another 24 hours. I am worried about volume overload, though, so I will give him a little bit of diuretic. Seems to be well controlled. 3. CAD. We will continue to monitor. At this point, I do not see any evidence of decompensation heart failure. We will continue to monitor closely and we will also hold any nephrotoxic drugs, but overall he is much improved. Anticipate possibly out of ICU tomorrow if he continues to improve. cc: Pedrito Telles MD
--- NOTE | 2019-06-14 15:00 | Diag Imaging Result Doc PS360 ---
EXAM: CT THORAX W/O CONTRAST 06/14/2019 HISTORY: pneumonia TECHNIQUE: This exam was performed using automated exposure control, adjustment of mA or kV according to patient size, and/or use of iterative reconstruction technique. COMMENT: The current study is compared with 11/12/2013. There are ill-defined alveolar opacities in the lower lobes medially bilaterally. On the right side this is associated with apparent bronchiectasis. The opacity surrounding the dilated bronchi has worsened since the previous study. The left lower lobe opacity was not present previously. There is apparent cavitation within an area of alveolar opacity in the posterior right upper lobe. This was not present at the time the previous study. There are dense calcifications in the left coronary artery. There is calcification in the subcarina. There has been previous sternotomy. The regional skeleton is intact otherwise. IMPRESSION: Right upper lobe pneumonia with cavitation. Bilateral lower lobe pneumonia with right lower lobe bronchiectasis. Electronically signed by Darion Rios 06/14/2019 2:57 PM
[2019-06-14] MEDS: ROBITUSSIN-AC PO PRN (15:19)
[2019-06-14] MEDS: PROTONIX IV SCH (17:26)
[2019-06-14] MEDS: SODIUM CHLORIDE 0.9% INJ SCH (17:26)
--- NOTE | 2019-06-14 17:53 | ECHO REPORT ---
ORDER DATE: 06/13/2019 INTERPRETING PHYSICIAN: Dr. Juan CLINICAL INDICATIONS: Stroke. Post bypass. Diabetes. M-MODE MEASUREMENTS: Left ventricle end diastole: 6.2 cm. Left ventricle end systole: 5.2 cm. Posterior wall: 1.1 cm. Interventricular septum: 1.3 cm. Left atrium: 5.3 cm. Aortic diameter: 4.1 cm. SUMMARY OF 2-DIMENSIONAL IMAGIN. The left ventricular chamber is dilated. The left ventricular systolic function is mildly impaired, estimated at 45%. There is impairment of the posterior wall, more than the septum. 2. Pacemaker lead is noted within the right ventricle. 3. The mitral valve opens normally. Color flow mapping indicates moderate to moderately severe degree of regurgitation. 4. Pulse wave Doppler of mitral inflow shows mild reversal of the E and the A ratio. The ratio is 0.8. 5. The tissue Doppler of septal and lateral mitral annulus averages 7 cm. There is probably borderline impaired left ventricular relaxation. 6. The tricuspid valve shows mild degree of regurgitation. 7. The inferior vena cava is not well visualized. 8. The pulmonary pressure is probably within normal range. 9. The aortic valve has three cusps. They open normally. Color flow mapping shows a mild to moderate degree of regurgitation. 10.The pulmonic valve was grossly unremarkable. There is mild degree of pulmonic regurgitation. 11.There is no pericardial effusion. 12.The right-sided chambers appear to be mildly enlarged. Clinical correlation is recommended. cc: MD Pedrito Oates MD
--- NOTE | 2019-06-14 18:07 | PULMONOLOGY CONSULTATION ---
DATE: 06/14/2019 CONSULTING PHYSICIAN: Makyel Valle MD REASON FOR CONSULTATION: Respiratory failure. HISTORY OF PRESENT ILLNESS: This is a 68-year-old gentleman with a history of reported recent diagnosis of interstitial lung diagnosis, coronary artery disease, ischemic cardiomyopathy, systolic heart failure with EF of 30% in January 2017. He presented to the emergency room complaining of shortness of breath that has increased over the last 10 days with a nonproductive cough. He was found to be in septic shock with pneumonia as well as acute kidney injury. Mr. Reddy states that he was hospitalized in [facility] in April for what he thought was flu-like symptoms. He was flu negative.He reports being ruled him out cardiac-jeter. He states CT scan was then performed and he was subsequently diagnosed with interstitial lung disease, being discharged from the hospital on prednisone 40 mg daily.. He was then diagnosed with steroid induced hyperglycemia. His insurance risk surveyor in [place] decreased Prednisone to 20mg daily. 10 days ago, he stated that he started developing increasing shortness of breath. His cough changed. He called his insurance risk surveyor who increased his prednisone back to 40 mg a day. He reports increasing symptoms despite increase in steroids, prompting his ER visit. PAST MEDICAL HISTORY: 1. Ischemic cardiomyopathy, systolic congestive heart failure with an ejection fraction of 30% in January 2017 is the most recent in our records. 2. Coronary artery disease with history of myocardial infarction, CABG x4 in 2001, status post stents. 3. Ventricular tachycardia requiring cardiac ablation and pacemaker defibrillator. 4. Depression. 5. Hyperlipidemia. 6. Gastroesophageal reflux disease. 7. Reported Recent diagnosis of interstitial lung disease. 8. Diabetes mellitus type 2. PAST SURGICAL HISTORY: 1. Coronary artery bypass graft x4 in 2001 2. Right donor nephrectomy 3. Cholecystectomy. 4. Appendectomy. 5. Surgery for Peyronie's disease. 6. Cardiac ablation w/ ICD placement. SOCIAL HISTORY: He denies alcohol, tobacco, or illicit drug use. He lives at home with his . He is retired from . FAMILY HISTORY: Mother had coronary artery disease, stroke. Father had a myocardial infarction at the age of 58. ALLERGIES: Levaquin. He states causes ventricular tachycardia. HOME MEDICATIONS: A list will be obtained by the nursing staff and once verified, reviewed, restart as appropriate. PHYSICAL EXAM: Vital Signs: Blood pressure is 123/55 with heart rate of 54, respirations 16, temperature is 98.2 degrees oral with O2 saturations that are 94% to 98% on 2 L nasal cannula. Eyes: Pupils equal, round, react to light. EOMs are intact. HEENT: Head is normocephalic, atraumatic. Mucous membranes are moist. Neck: Supple with trachea midline. Cardiovascular: Regular rate and rhythm. S1, S2 appreciated. He has no rubs, gallops, or murmurs. He has no lower extremity edema. Calves are nontender bilateral with peripheral pulses palpable x4 extremities. Pulmonary: Breath sounds are diminished throughout. Chest rises and falls symmetrically with respiration. Gastrointestinal: Abdomen is soft, nontender, nondistended with bowel sounds in all 4 quadrants. Genitourinary: No CVA or suprapubic tenderness. Neurologic: He is alert and oriented x3. Skin: Warm and dry. LABS: WBC is 15.6 with hemoglobin 10.8, hematocrit 34.3, and platelets 150,000. Sodium 133, potassium 4.6, BUN 48, creatinine 1.6, glucose 262. Urine culture revealed no growth. Blood cultures x2 revealed no growth. Chest x-ray reveals right upper lobe pneumonia. CT of the chest reveals right upper lobe pneumonia with cavitation and bilateral lower lobe pneumonia with right lower lobe bronchiectasis. ASSESSMENT AND PLAN: 1. Septic shock associated with pneumonia. Sepsis has resolved. White count is improving. At present he has gram-negative rods in his blood. Continue with cefepime and Zyvox. 2. Hypoxemia. Continue supplemental oxygen. 3. History of ischemic cardiomyopathy with an ejection fraction 30% in January 2017. 4. Coronary artery disease with a history of a myocardial infarction and coronary bypass graft with subsequent stents. 5. History of ventricular tachycardia status post ablation and defibrillator. 6. Gastroesophageal reflux disease. 7. Diabetes mellitus type 2. 8. Recent diagnosis of interstitial lung disease. 9. S/P right donor nephrectomy. PLAN: 1. Will continue with supplemental oxygen, bronchodilators and steroids. 2. Continue antibiotics as per the primary team. 3. We will obtain his records from [facility]. 4. We will review his home medications once verified, restarting as appropriate. 5. Plan was discussed with Dr. Beckwith. Dictated by SIS Brandt for Cy Beckwith MD cc: SIS Brandt MD [facility]
[2019-06-14] MEDS: PAXIL PO SCH (20:03)
[2019-06-14] MEDS: RANEXA PO SCH (20:03)
[2019-06-14] MEDS ORDERED: XOPENEX NEB INH PRN (20:54)
[2019-06-14] MEDS ORDERED: NS NEB INH SCH (21:00)
[2019-06-14] MEDS: XOPENEX NEB INH SCH (22:22)
[2019-06-15] MEDS: ROBITUSSIN-AC PO PRN ×3 (00:19→22:56)
[2019-06-15] MEDS: HUMALOG SUBQ SCH ×6 (01:01→22:08)
[2019-06-15] MEDS: SOLU-MEDROL IV SCH ×2 (02:13→09:42)
[2019-06-15] MEDS ORDERED: VANCOMYCIN 1.6 GM in NS 250 ML IV SCH (04:00)
[2019-06-15] MEDS: MAXIPIME 1 GM in NS 50 ML IV SCH ×2 (04:41→17:33)
[2019-06-15 06:49] LABS: BASO# 0.01 X1000 (0.0-0.2); BASO% 0.1 % (0.0-0.8); EOS# 0.01 X1000 (0.0-0.7); EOS% 0.1 % (0.0-10.0); HEMATOCRIT 32.9 % (42.0-52.0); HEMOGLOBIN 10.5 g/dL (14.0-18.0); IMM GRAN# 0.05 X1000 (0.0-0.04); IMM GRAN% 0.4 % (0.0-0.5); LYMPH# 1.25 X1000 (1.2-3.4); LYMPH% 10.1 % (20.5-51.1); MCH 31.1 PG (27-31); MCHC 31.9 g/dL (33-37); MCV 97.3 FL (81-99); MONO# 0.55 X1000 (0.11-0.59); MONO% 4.4 % (1.7-9.3); MPV 10.7 FL (7.4-10.4); NEUT# 10.54 X1000 (1.4-6.5); NEUT% 84.9 % (42.2-75.2); PLT 155 X1000 (130-400); RBC 3.38 XMIL (4.7-6.1); RDW 15.6 % (11.5-14.5); WBC 12.41 X1000 (4.8-10.8)
[2019-06-15] MEDS ORDERED: PRILOSEC PO SCH (07:00)
[2019-06-15 07:58] LABS: CREATININE 1.6 mg/dL (0.7-1.2); POTASSIUM 4.1 mmol/L (3.5-5.1)
[2019-06-15] MEDS: RANEXA PO SCH (08:50)
[2019-06-15] MEDS: HEPARIN SUBQ SCH ×2 (08:50→22:09)
[2019-06-15] MEDS: ASPIRIN EC PO SCH (08:50)
[2019-06-15] MEDS: FLOMAX PO SCH (08:50)
[2019-06-15] MEDS: FISH OIL CONCENTRATE PO SCH (08:50)
[2019-06-15] MEDS: BETAPACE PO SCH (08:51)
[2019-06-15] MEDS: EFFIENT PO SCH (08:51)
[2019-06-15] MEDS ORDERED: MULTI-VITAMIN PO SCH (09:00)
[2019-06-15] MEDS ORDERED: TUBERSOL ID ONE (12:31)
[2019-06-15] MEDS ORDERED: LOPRESSOR IV PRN (12:39)
--- NOTE | 2019-06-15 12:59 | PROGRESS NOTE ---
DATE: 06/15/2019 SUBJECTIVE: Patient has no major complaints. OBJECTIVE: Vital Signs: Blood pressure is 116/60, heart rate of 74, respiratory rate of 28. He is afebrile 96.6. Cardiovascular: Regular rate and rhythm. Pulmonary: He has occasional rales, rhonchi, but no wheezing. Gastrointestinal: Abdomen soft, nontender, nondistended. Bowel sounds are positive. LABORATORY DATA: White count is down to 12, hemoglobin and hematocrit 10 and 32. Platelets 155.000. Creatinine 1.6, glucose 266. Immunoglobulins show a low IgG. PROBLEM LIST: 1. Septic shock with pneumonia. His pneumonia is cavitary, so differential has extended, but he does have gram-negative rods, so I think it is unlikely to be tuberculosis or anything from that standpoint because he has gram-negative rods which we still have not identified. 2. Acute kidney injury that is resolving. I think he has got baseline renal insufficiency. He is probably close to his baseline currently. 3. Coronary artery disease with ventricular tachycardia. He has had several episodes of ventricular tachycardia associated with breathing treatments. Pacer though has overdrive pace. We will interrogate pacemaker and get Cardiology opinion. Keep an eye on his potassium and magnesium, change his breathing treatments to p.r.n. 4. Diabetes is still not completely well controlled. He is still on fairly high dose steroids. He is not getting any other medications. Curiously, he is not on any medications for the hyperglycemia. We will start some Lantus and follow. His A1c is 10.1 so obviously related to his steroids. I am going to start Lantus and we will continue to monitor, and Jaidaia. cc: Pedrito Telles MD
[2019-06-15] MEDS: PREDNISONE PO SCH (13:25)
[2019-06-15] MEDS: LANTUS INSULIN SUBQ SCH (13:25)
[2019-06-15] MEDS: JANUVIA PO SCH (13:25)
[2019-06-15] MEDS ORDERED: GAMUNEX-C 10% IV ONE (13:30)
--- NOTE | 2019-06-15 13:51 | EKG Report ---
Test Performed on : 06/15/2019 12:47:37 PM Test Reason : vtach Blood Pressure : / mmHG Vent. Rate : 071 BPM Atrial Rate : 071 BPM P-R Int : 164 ms QRS Dur : 126 ms QT Int : 396 ms P-R-T Axes : 016 -44 134 degrees QTc Int : 430 ms Normal sinus rhythm. Left axis deviation Left bundle branch block Abnormal ECG When compared with ECG of 13-JUN-2019 13:47, (Unconfirmed) T wave inversion more evident in Anterolateral leads Confirmed by Kristian LARRY, Arcadio Chaves ([id number]) on 06/18/2019 2:31:59 PM
--- NOTE | 2019-06-15 16:35 | CONSULTATION ---
DATE OF CONSULTATION: 06/15/2019 IMPRESSION: 1. Paroxysms of ventricular tachycardia. 2. Currently admitted with pneumoniae, associated hypoxemia. 3. Ischemic cardiomyopathy with left ventricular ejection fraction around 30%. Patient is status post implantable defibrillator. 4. Atherosclerotic coronary disease with history of previous coronary bypass grafting and later angioplasty/stenting saphenous vein graft to diagonal. 5. Hypertension. 6. Hyperlipidemia. 7. Renal insufficiency. Patient is status post donation of kidney. RECOMMENDATIONS: 1. Continue to treat for pneumonia as you are doing. 2. Agree with resumption of sotalol. He apparently missed a couple doses. 3. Discontinue Ranexa. 4. Conservative cardiovascular management overall. HISTORY: This 68-year-old white male with past history of ischemic cardiomyopathy, ventricular arrhythmias, previous implantable defibrillator, previous coronary bypass surgery and subsequent angioplasty/stenting of saphenous vein graft to diagonal, hypertension, hyperlipidemia, and chronic renal dysfunction was admitted with hypotension and cough and has been found to have pneumonia. He was admitted a couple days ago. He manifests some runs of ventricular tachycardia this morning prompting cardiology consult. He missed sotalol for a couple days since admission, but this was resumed this morning. He denies any angina or chest discomfort. He describes cough as well as recent flu-like symptoms. There has been no syncope. He has implantable defibrillator but has had no discharges from this. PAST MEDICAL HISTORY: 1. Atherosclerotic coronary disease with history of previous coronary bypass grafting and later angioplasty/stenting of saphenous vein graft to the diagonal. 2. Ischemic cardiomyopathy with left ventricular ejection fraction 30%. 3. Ventricular arrhythmias. Patient is status post implantable defibrillator. 4. Hypertension. 5. Hyperlipidemia. 6. Chronic kidney disease with history of previous kidney donation. 7. Interstitial lung disease. 8. Type 2 diabetes mellitus. 9. Depression. PAST SURGICAL HISTORY: Includes previous coronary bypass surgery 2001, right nephrectomy donated, cholecystectomy, appendectomy, surgery for Peyronie disease and cardiac ablation. ALLERGIES: He is allergic or intolerant to Levaquin. MEDICATIONS PRIOR TO ADMISSION: As listed. SOCIAL HISTORY: He is . He does not smoke or use alcohol. He lives with his . He is retired from [employer]. FAMILY HISTORY: Positive for coronary disease. REVIEW OF SYSTEMS: Pulmonary: Noteworthy for shortness of breath and cough. Gastrointestinal: Noncontributory. Constitutional: Noncontributory. Remainder of review of systems negative/noncontributory with 14 total systems reviewed. PHYSICAL EXAMINATION: General: This is a pleasant, overweight older white male in no distress. Vital signs: Blood pressure 114/60, heart rate 61, oxygen saturation 98%. HEENT: Extraocular movements appear intact. Mucous membranes moist. Neck: Supple without jugular distention. Auscultation of the chest reveals few scattered expiratory wheezes. Cardiac: Reveals a regular rate and rhythm without appreciable murmur or gallop. Abdomen: Soft. Bowel sounds are normal. Extremities: Without edema. Neurologic: Reveals him to be alert and fully oriented. Speech is fluent. Moves all 4 extremities equally well. LABORATORY DATA: Includes a white blood cell count 12.41, hematocrit 32.9, hemoglobin 10.5, platelet count 155,000. Sodium 140, potassium 4.1, chloride 110, carbon dioxide 18, BUN 43, creatinine 1.6, glucose 182, magnesium 2.1. Twelve lead EKG is reviewed and demonstrates normal sinus rhythm, left axis deviation, and left bundle branch block. cc: Dale Troy MD
[2019-06-15] MEDS ORDERED: SOLU-MEDROL IV SCH (18:00)
--- NOTE | 2019-06-15 21:37 | PULMONOLOGY PROGRESS NOTE ---
DATE: 06/15/2019 SUBJECTIVE: The patient is awake, alert, and conversant. He reports he is being followed by Dr. Mukesh Sam. He indicates that while in [facility] he was diagnosed with interstitial lung disease and was placed on prednisone 40 mg per day. He had been tapered down at his visit earlier this month. He started feeling poorly, and he notified Dr. Sam who increased his prednisone dosing prior to this admission. OBJECTIVE: Vital Signs: The patient has been afebrile for the last 24 hours. Blood pressure 113/61, heart rate 58, respiratory rate 20, oxygen saturation 98%. HEENT: Pupils are equal and reactive. Oropharynx appears clear. Neck: Supple. Chest: Reveals occasional rhonchi bilaterally. Cardiac exam: S1, S2. Abdomen: Soft. Extremities: Without edema. IMAGING: CT scan from [facility] dated 05/04/2019 was pulled into our system and is reviewed. The patient has mild fibrosis medially in the left lower lobe with possible component of bronchiectasis. He also has mild fibrosis peripherally in the right middle lobe. Overall interstitial lung burden appears to be relatively small. Most recent admission to [facility] was requested by this physician before noon this morning and also by Dr. Telles. Not yet available for review. LABORATORIES: His total IgG is extremely low at 385. White blood count 12.41, hemoglobin 10.5, platelet count 155,000. MICROBIOLOGY: Reveals his blood growing a gram-negative maria d. IMPRESSION: A 68-year-old with: 1. Gram-negative maria d pneumonia with bacteremia. 2. Severe immunoglobulin deficiency. 3. Minimal interstitial lung disease. 4. Sepsis at presentation. 5. Ischemic cardiomyopathy with recurrent ventricular tachyarrhythmias. 6. Type 2 diabetes mellitus. 7. 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 PLAN: 1. Continue cefepime until gram-negative organism has been identified. 2. Transfuse 30 g of immunoglobulin given the severe immunoglobulin deficiency. 3. Recommend steroid taper. 4. Recommend followup immunoglobulin level to be performed 4 to 6 weeks after discharge from the hospital to see if he needs ongoing replacement. cc: Cy Beckwith MD
[2019-06-15] MEDS: LIPITOR PO SCH (22:09)
[2019-06-15] MEDS: MELATONIN PO SCH (22:09)
[2019-06-16] MEDS: HUMALOG SUBQ SCH ×6 (01:08→20:19)
[2019-06-16] MEDS: PULMICORT INH SCH ×4 (01:45→21:15)
[2019-06-16] MEDS: XOPENEX NEB INH SCH ×4 (01:45→21:15)
[2019-06-16] MEDS: MAXIPIME 1 GM in NS 50 ML IV SCH ×2 (06:02→17:26)
[2019-06-16] MEDS: PRILOSEC PO SCH (06:54)
[2019-06-16 07:19] LABS: BASO# 0.01 X1000 (0.0-0.2); BASO% 0.1 % (0.0-0.8); EOS# 0.01 X1000 (0.0-0.7); EOS% 0.1 % (0.0-10.0); HEMATOCRIT 32.7 % (42.0-52.0); HEMOGLOBIN 10.4 g/dL (14.0-18.0); IMM GRAN# 0.12 X1000 (0.0-0.04); IMM GRAN% 1.1 % (0.0-0.5); LYMPH# 0.98 X1000 (1.2-3.4); LYMPH% 8.7 % (20.5-51.1); MCHC 31.8 g/dL (33-37); MCV 97.6 FL (81-99); MONO# 0.54 X1000 (0.11-0.59); MONO% 4.8 % (1.7-9.3); MPV 10.6 FL (7.4-10.4); NEUT# 9.55 X1000 (1.4-6.5); NEUT% 85.2 % (42.2-75.2); PLT 139 X1000 (130-400); RBC 3.35 XMIL (4.7-6.1); RDW 15.5 % (11.5-14.5); WBC 11.21 X1000 (4.8-10.8)
[2019-06-16 07:22] LABS: CALCIUM 8.6 mg/dL (8.8-10.2); CREATININE 1.3 mg/dL (0.7-1.2); POTASSIUM 4.6 mmol/L (3.5-5.1)
[2019-06-16 08:22] LABS: LYMPHS 6 % (21-51); SEGS 94 % (42-75)
[2019-06-16] MEDS: FLOMAX PO SCH (08:27)
[2019-06-16] MEDS: EFFIENT PO SCH (08:27)
[2019-06-16] MEDS: THERA M PLUS PO SCH (08:27)
[2019-06-16] MEDS: PREDNISONE PO SCH (08:27)
[2019-06-16] MEDS: BETAPACE PO SCH (08:27)
[2019-06-16] MEDS: FISH OIL CONCENTRATE PO SCH (08:27)
[2019-06-16] MEDS: ASPIRIN EC PO SCH (08:27)
[2019-06-16] MEDS: LANTUS INSULIN SUBQ SCH (08:28)
[2019-06-16] MEDS: JANUVIA PO SCH (08:28)
[2019-06-16] MEDS: HEPARIN SUBQ SCH ×2 (08:28→20:19)
--- NOTE | 2019-06-16 12:59 | PROGRESS NOTE ---
DATE: 06/16/2019 SUBJECTIVE: He looks great. He is sitting up in bed. He seems like he is doing pretty well. OBJECTIVE: Vital signs: Blood pressure is 111/60, heart rate 71, respiratory rate 18, temperature 98.1 degrees, 98% on room air. Cardiovascular: Regular rate and rhythm. Pulmonary: Bilateral breath sounds clear to auscultation. Gastrointestinal: Soft, nontender, nondistended. Bowel sounds are positive. LABORATORY DATA: White count is down to 11, hemoglobin and hematocrit 10 and 32, platelets 139,000. 40 and 1.3. PROBLEM LIST: 1. Acute respiratory failure due to Pseudomonas pneumonia, doing much better. We will continue cefepime renally dosed. 2. Septic shock with pneumonia. Most likely this is Pseudomonas pneumonia. He did have 1 positive blood culture. We will continue IV antibiotics and follow, repeat his blood culture and see if it is negative. 3. Acute kidney injury which is resolving. We will continue to follow. 4. Coronary artery disease, congestive heart failure, ventricular tachycardia. Cardiology was consulted. They are looking at trying to interrogate his pacemaker. He is on sotalol. We have to stop the Ranexa and continue to monitor. So far, he has not had any issues. 5. Type 2 diabetes. His sugars are still elevated. I think he is probably going to have to be on some medications. It does not look like he is on anything right now at all for diabetes. I have started some Lantus and I think his sugars have improved and he will probably have to go home on Lantus, especially if we are going to do steroids, which we are slowly tapering. I think he is stable for step-down. cc: Pedrito Telles MD
--- NOTE | 2019-06-16 15:03 | PROGRESS NOTE ---
DATE: 06/16/2019 SUBJECTIVE: Patient denies chest discomfort, shortness of breath. He has had no further ventricular arrhythmias since resumption of sotalol yesterday morning. OBJECTIVE: Blood pressure 121/65, heart rate 63, oxygen saturation 97% on room air. There is no significant jugular venous distention.Chest: Clear to auscultation. Cardiac: Reveals a regular rate and rhythm without appreciable murmur or gallop. There is no evidence of peripheral edema. LABORATORY DATA: Includes a white blood cell count 11.21, hematocrit 32.7, hemoglobin 10.4, platelet count 139,000. Sodium 136, potassium 4.6, chloride 107, carbon dioxide 20, BUN 40, creatinine 1.3. Glucose 159. IMPRESSION: 1. Recurrent paroxysms of ventricular tachycardia. These have not recurred following resumption of sotalol. 2. Pneumonia reported to be due to Pseudomonas. 3. Ischemic cardiomyopathy with left ventricular ejection fraction of 30%. Patient is status post implantable defibrillator. 4. Atherosclerotic coronary disease with previous coronary bypass grafting and later angioplasty/stenting of saphenous vein graft to the diagonal. The patient continues without angina. 5. Hypertension. 6. Hyperlipidemia. 7. Chronic renal insufficiency. Patient is status post donation of kidney. RECOMMENDATIONS: 1. Continue sotalol at current dose. 2. Conservative cardiovascular management overall. 3. I will see patient further on an as needed basis. cc: Dale Troy MD
[2019-06-16] MEDS: ROBITUSSIN-AC PO PRN ×2 (15:38→23:18)
--- NOTE | 2019-06-16 18:40 | PULMONOLOGY PROGRESS NOTE ---
DATE: 06/16/2019 SUBJECTIVE: The patient is awake and alert. He reports he feels significantly better than yesterday. OBJECTIVE: Vital Signs: The patient has been afebrile for the last 24 hours. Blood pressure 111/60, heart rate 71, respiratory rate 18, oxygen saturation 98% on room air. HEENT: Pupils are equal and reactive. Oropharynx appears clear. Neck: Supple. Chest: Rhonchi bilaterally. Cardiac: S1, S2 with occasional PVCs. Abdomen: Soft. Extremities: Trace edema. LABORATORIES: Sputum culture is growing a gram-negative maria d. Blood cultures grew Pseudomonas aeruginosa, which is pansensitive to antibiotics tested. IMPRESSION: A 68-year-old with: 1. Gram-negative maria d pneumonia. 2. Pseudomonas aeruginosa bacteremia/septicemia/septic shock. 3. 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 This was replaced yesterday. 4. Ischemic cardiomyopathy. 5. Type 2 diabetes mellitus. 6. Prior right nephrectomy due to a renal donation. DISCUSSION: 68-year-old with problems outlined above. Clinically, he appears to be improving and steroids are being tapered. He will need a followup immunoglobulin level check in 4 to 6 weeks. PLAN: 1. Continue current antibiotic regimen. 2. Continue bronchial hygiene. 3. Anticipate transfer to the floor. cc: Cy Beckwith MD
[2019-06-16] MEDS: MELATONIN PO SCH (20:18)
[2019-06-16] MEDS: LIPITOR PO SCH (20:19)
[2019-06-16] MEDS: PAXIL PO SCH (20:53)
[2019-06-17] MEDS: HUMALOG SUBQ SCH ×6 (01:49→20:54)
[2019-06-17] MEDS: MAXIPIME 1 GM in NS 50 ML IV SCH (05:40)
[2019-06-17] MEDS: PRILOSEC PO SCH ×2 (05:41→06:46)
[2019-06-17 06:22] LABS: BASO# 0.02 X1000 (0.0-0.2); BASO% 0.3 % (0.0-0.8); EOS# 0.03 X1000 (0.0-0.7); EOS% 0.4 % (0.0-10.0); HEMATOCRIT 33.4 % (42.0-52.0); HEMOGLOBIN 10.4 g/dL (14.0-18.0); IMM GRAN% 3.8 % (0.0-0.5); LYMPH# 1.73 X1000 (1.2-3.4); LYMPH% 21.9 % (20.5-51.1); MCH 30.6 PG (27-31); MCHC 31.1 g/dL (33-37); MCV 98.2 FL (81-99); MONO# 0.61 X1000 (0.11-0.59); MONO% 7.7 % (1.7-9.3); MPV 10.5 FL (7.4-10.4); NEUT# 5.21 X1000 (1.4-6.5); NEUT% 65.9 % (42.2-75.2); PLT 145 X1000 (130-400); RDW 15.4 % (11.5-14.5)
[2019-06-17 06:36] LABS: CALCIUM 8.7 mg/dL (8.8-10.2); CREATININE 1.3 mg/dL (0.7-1.2); POTASSIUM 4.2 mmol/L (3.5-5.1)
[2019-06-17 07:39] LABS: BANDS 1 % (0-1); EOS 1 % (1-10); LYMPHS 13 % (21-51); MONO 7 % (1-9); SEGS 76 % (42-75)
--- NOTE | 2019-06-17 07:53 | Diag Imaging Result Doc PS360 ---
CHEST-2 VIEWS - 06/17/2019 INDICATION: abnormal exam COMPARISON: 06/14/2019 FINDINGS: Stable sternotomy wires. Stable pacemaker. Heart size and pulmonary vascularity remain normal. Stable right upper lobe infiltrate. No new infiltrates. No pneumothorax or large pleural effusion. IMPRESSION: Stable right upper lobe infiltrate compatible with pneumonia. Electronically signed by Dwight Ferrer 06/17/2019 7:50 AM
[2019-06-17] MEDS: PULMICORT INH SCH (07:55)
[2019-06-17] MEDS: XOPENEX NEB INH SCH ×2 (07:55→15:31)
[2019-06-17] MEDS: EFFIENT PO SCH (09:36)
[2019-06-17] MEDS: BETAPACE PO SCH (09:36)
[2019-06-17] MEDS: FLOMAX PO SCH (09:37)
[2019-06-17] MEDS: FISH OIL CONCENTRATE PO SCH (09:37)
[2019-06-17] MEDS: JANUVIA PO SCH (09:37)
[2019-06-17] MEDS: ASPIRIN EC PO SCH (09:37)
[2019-06-17] MEDS: THERA M PLUS PO SCH (09:38)
[2019-06-17] MEDS: LANTUS INSULIN SUBQ SCH (09:38)
[2019-06-17] MEDS: PREDNISONE PO SCH (09:38)
[2019-06-17] MEDS: HEPARIN SUBQ SCH ×2 (09:38→20:52)
--- NOTE | 2019-06-17 11:08 | EKG Report ---
Test Performed on : 06/17/2019 10:58:42 AM Test Reason : vtach run Blood Pressure : / mmHG Vent. Rate : 075 BPM Atrial Rate : 075 BPM P-R Int : 150 ms QRS Dur : 132 ms QT Int : 390 ms P-R-T Axes : 015 -44 116 degrees QTc Int : 435 ms Sinus rhythm. with frequent premature ventricular complexes. Left axis deviation Nonspecific intraventricular block Possible Anterolateral infarct , age undetermined Abnormal ECG When compared with ECG of 15-JUN-2019 12:47, (Unconfirmed) premature ventricular complexes. are now present T wave inversion less evident in Anterolateral leads Confirmed by Kristian LARRY, Arcadio Chaves ([id number]) on 06/18/2019 2:34:38 PM
[2019-06-17] MEDS: ROBITUSSIN-AC PO PRN ×2 (11:22→23:26)
[2019-06-17] MEDS ORDERED: MAGNESIUM SULFATE 2 GM/S.W.I. 2 GM/50 ML IVPB IV ONE (11:51)
--- NOTE | 2019-06-17 15:01 | PROGRESS NOTE ---
DATE: 06/17/2019 SUBJECTIVE: He looks better. Looks a little sleepy but nothing major. No major issues overnight. OBJECTIVE: Blood pressure is 105/62, heart rate of 78, respiratory rate 18, temperature 97.6 degrees, 98% on room air. Cardiovascular: Regular rate and rhythm. Pulmonary: Bilateral breath sounds clear to auscultation. GI: Soft, nontender, nondistended. Bowel sounds were positive. Laboratory Data: White count 7, hemoglobin and hematocrit 10 and 33, platelets 145,000. BUN and creatinine 39 and 1.3. PROBLEM LIST: 1. Acute respiratory failure due to Pseudomonas pneumonia, cavitary pneumonia. We will continue cefepime and follow. 2. Septic shock with pneumonia. Repeat blood cultures thus far are negative. I will discuss with Dr. Beckwith, do we need to do intravenous antibiotics. He does have a pacemaker. It is Pseudomonas so we will continue to follow. 3. Ventricular tachycardia. That is stabilized. He is on sotalol. Cardiology is following. I think his defibrillator was interrogated. Continue to manage. 4. Disposition. We will work with physical therapy. Start getting him up out of bed. He seems to be doing okay from that standpoint. I am not sure if he is going to need rehab versus home health. We will continue to follow. 5. Chronic renal failure, is stable currently and improved since admission. 6. Type 2 diabetes. I have initiated Lantus. Apparently, he was not on therapy at home. We may need to adjust that up a bit. His sugars are still in the 200 range. I am going to increase him to 15 and we will see how he does. This is, briefly, a 68-year-old male presenting with septic shock and respiratory failure due to Pseudomonas pneumonia which has ended up being cavitary. He has been on a 6 week course of high- dose steroids for interstitial lung disease, diagnosed by Dr. Mukesh Sam in [place], which also induced the diabetes but likely put him at risk for infection which appears to be hospital- acquired, but it is pansensitive Pseudomonas so the question will be does he need intravenous antibiotics. We may get an infectious disease opinion on that. He will need a peripherally inserted central catheter line and things of that nature. cc: Pedrito Telles MD
[2019-06-17] MEDS: MAXIPIME 2 GM in NS 100 ML IV SCH ×2 (15:31→22:28)
[2019-06-17] MEDS ORDERED: XOPENEX NEB INH PRN (15:35)
[2019-06-17] MEDS ORDERED: NS NEB INH SCH (15:45)
[2019-06-17] MEDS ORDERED: BETAPACE PO ONE (16:02)
--- NOTE | 2019-06-17 19:12 | CARDIOLOGY PROGRESS NOTE ---
DATE: 06/17/2019 SUBJECTIVE: Patient had further episodes of ventricular tachycardia. Converted back to sinus rhythm with antitachycardia pacing. He continues to report feeling progressive improvement. Denies any shortness of breath or chest discomfort. He does relate awareness of his arrhythmia, and feeling some palpitations and a brief flushed feeling rising from his chest to his head. OBJECTIVE: Vital Signs: Blood pressure 111/57, heart rate 68, oxygen saturation 97% on room air. There is no significant jugular venous distention. Chest: Clear to auscultation. Cardiac: Regular rate and rhythm without appreciable murmur or gallop. There is no evidence of peripheral edema. IMPRESSION: 1. Recurrent paroxysms of ventricular tachycardia. The patient is currently on sotalol 80 mg p.o. daily. 2. Pneumonia due to Pseudomonas with positive blood culture for Pseudomonas. Patient clinically improving with antibiotic regimen. Pseudomonas organism highly unusual for endocarditis. 3. Ischemic cardiomyopathy with left ventricular ejection fraction of 30%. Patient is status post implantable defibrillator. 4. Atherosclerotic coronary disease with previous coronary artery bypass grafting in the past, and later angioplasty/stenting of saphenous vein graft to the diagonal. The patient continues without angina. 5. Hypertension. 6. Hyperlipidemia. 7. Chronic renal insufficiency. Patient is status post donation of a kidney for purposes of transplant. RECOMMENDATIONS: 1. Gently increase sotalol to a total of 120 mg daily. 2. Conservative cardiovascular management overall. 3. Given that Pseudomonas unlikely to be cause of endocarditis, transesophageal echocardiography probably low yield from a diagnostic standpoint. cc: Dale Troy MD
[2019-06-17] MEDS: LIPITOR PO SCH (20:52)
[2019-06-17] MEDS: MELATONIN PO SCH (20:52)
--- NOTE | 2019-06-17 21:12 | INFECTIOUS DISEASE CONSULT REP ---
DATE: 06/17/2019 CONCLUSION: The patient has a Pseudomonas pneumonia and bacteremia. I think this occurred because the patient has interstitial lung disease and he is on steroids for it, and both of these conditions could predispose the patient to infection. In this case, it started as a Pseudomonas pneumonia and then the patient became bacteremic from it. I do hear a systolic murmur and I am concerned that he may have endocarditis. He already has had an echocardiogram, however, that did not show any evidence of endocarditis. I have discussed with Dr. Pavon that maybe a transesophageal echocardiogram should be indicated, and he is going to pass that information on to Dr. Troy, who is seeing the patient. DISCUSSION: The patient, in April, started having dyspnea and a cough productive of green sputum. He also had chills with it, although he thought he did not have any fever. The patient also had pleuritic chest pain. He was seen initially at [facility] and then he came to [facility] and he was hospitalized, and he is on the PVC unit at this time. His CBC shows a white blood cell count of 7900, hemoglobin 10.4, and platelet count 145,000. Creatinine is 1.3. GFR is 55. Liver function studies are normal. Sputum and blood cultures grew Pseudomonas aeruginosa, susceptible to all antibiotics they tested. Repeat blood cultures are pending. RECOMMENDATIONS: Since the patient has a combination pacemaker defibrillator in him which may have become infected while the patient was bacteremic hematogenously, I plan to treat the patient for 6 weeks with IV cefepime. Ideally, I would like to put him on a low dose of Levaquin following that, but the Levaquin does interfere with some of the patient's cardiac medications. The combination of both can cause some adverse reactions. PAST MEDICAL HISTORY/REVIEW OF SYSTEMS: Eyes and ears: The patient has decreased hearing and vision. Neck: No stiffness. Respiratory: See Present Illness. Cardiac: No chest pain other than the pleuritic chest pain I mentioned earlier. No palpitations, but the patient on EKG was in sinus rhythm with frequent PVCs. GI: No nausea, vomiting, or diarrhea. : No dysuria or flank pain. Bones, joints, muscles: No swelling joints or muscle aching. Neurologic: No seizures. No loss of motor or sensory function. PREVIOUS HOSPITALIZATIONS AND OPERATIONS: Patient has had back surgery. He also was a kidney donor to his sister. He has had a cholecystectomy, coronary artery bypass grafting, placement of coronary artery stents, appendectomy, Peyronie's disease, and placement of a combination pacemaker and defibrillator in the left chest. MEDICAL DISEASES: Positive for interstitial lung disease for which the patient takes steroids. The patient has coronary artery disease, cardiac arrhythmia requiring placement of a pacemaker and defibrillator. He also has Peyronie disease. The patient had diabetes when he was put on steroids, but prior to that he did not have diabetes. The patient has coronary artery disease and myocardial infarction. INFECTIOUS DISEASE HISTORY: Positive for pneumonia. The patient was unsure if he had a urinary tract infection or not. FAMILY HISTORY: Positive for diabetes mellitus, hypertension, myocardial infarction, stroke, and cancer. SOCIAL HISTORY: [place] . He has cats for pets. ALLERGIES: He is allergic to Levaquin and actually what the problem was is that it can interfere with some of the patient's cardiac medications. HOME MEDICATIONS: Include the followin. Atorvastatin. 2. Fluticasone. 3. Omeprazole. 4. Paxil. 5. Effient. 6. Prednisone. 7. Ranexa. 8. Sotalol. 9. Spironolactone. 10. Flomax. 11. Tramadol. 12. Valsartan. SOCIAL HISTORY: The patient is retired from working at . PHYSICAL EXAMINATION: Vital Signs: Temperature is 97.6 degrees, pulse 78, respirations 18, blood pressure 105/62. Patient is 5 feet 9 inches tall and weighs 215 pounds. General: He is an obese, elderly male. He is in no acute distress. Head/eyes/ears/nose/throat: He can hear my spoken words and see near objects. I do not see any white patches in his mouth. Neck: No meningismus. Lungs: Clear to auscultation. Cardiovascular: Heart rate is for the most part regular, but there are premature beats which on EKG appear to be PVCs. Abdomen: Soft and nontender. Extremities: Edema in the legs, but no erythema. Neurologic: The patient is awake. He can move his extremities. There is no tremor. His memory as regarding his medical history was slightly decreased. Integument: No rash noted. Thank you for the consult. cc: Sylvester Leon MD
[2019-06-18] MEDS: HUMALOG SUBQ SCH ×5 (00:26→16:26)
--- NOTE | 2019-06-18 04:49 | PULMONOLOGY PROGRESS NOTE ---
DATE: 06/17/2019 SUBJECTIVE: The patient is awake, alert, and conversant. He reports he feels significantly better than he did 4 days ago. He has been getting up and moving in his room and sitting in the chair. OBJECTIVE: Vital Signs: The patient has been afebrile for the last 24 hours. Blood pressure 111/57, heart rate 68, respiratory rate 20, oxygen saturation 97% on room air. HEENT: Pupils are equal and reactive. Oropharynx appears clear. Neck: Supple. Chest: Reveals occasional rhonchi bilaterally. Cardiac: S1, S2. Abdomen: Soft. Extremities: Without edema. LABORATORIES: Chest x-ray reveals infiltrate in the right upper lobe, it does not appear to be significantly different than 3 days ago. IMPRESSION: A 68-year-old with 1. Pseudomonas aeruginosa pneumonia with septicemia and shock. 2. Severe immunodeficiency. 3. Diabetes mellitus. 4. Ischemic cardiomyopathy. 5. Previous renal nephrectomy due to renal donation. PLAN: 1. Anticipate infectious Disease evaluation. Dr. Leon has been consulted. 2. Continue bronchial hygiene. 3. Continue to mobilize as tolerated. 4. Antibiotics as directed by Dr. Sylvester Leon. cc: Cy Beckwith MD
[2019-06-18] MEDS: PRILOSEC PO SCH (06:07)
[2019-06-18] MEDS: MAXIPIME 2 GM in NS 100 ML IV SCH (06:08)
[2019-06-18 06:35] LABS: BASO# 0.05 X1000 (0.0-0.2); BASO% 0.7 % (0.0-0.8); EOS# 0.07 X1000 (0.0-0.7); HEMATOCRIT 35.2 % (42.0-52.0); IMM GRAN# 0.48 X1000 (0.0-0.04); IMM GRAN% 6.6 % (0.0-0.5); LYMPH# 1.69 X1000 (1.2-3.4); LYMPH% 23.2 % (20.5-51.1); MCH 30.7 PG (27-31); MCHC 31.3 g/dL (33-37); MCV 98.3 FL (81-99); MONO# 0.39 X1000 (0.11-0.59); MONO% 5.4 % (1.7-9.3); MPV 11.3 FL (7.4-10.4); NEUT# 4.59 X1000 (1.4-6.5); NEUT% 63.1 % (42.2-75.2); PLT 161 X1000 (130-400); RBC 3.58 XMIL (4.7-6.1); RDW 15.5 % (11.5-14.5); WBC 7.27 X1000 (4.8-10.8)
[2019-06-18 07:18] LABS: CALCIUM 8.3 mg/dL (8.8-10.2); CREATININE 1.4 mg/dL (0.7-1.2); POTASSIUM 4.4 mmol/L (3.5-5.1)
[2019-06-18] MEDS: JANUVIA PO SCH (08:26)
[2019-06-18] MEDS: ASPIRIN EC PO SCH (08:26)
[2019-06-18] MEDS: PREDNISONE PO SCH (08:26)
[2019-06-18] MEDS: FLOMAX PO SCH (08:27)
[2019-06-18] MEDS: BETAPACE PO SCH (08:27)
[2019-06-18] MEDS: EFFIENT PO SCH (08:27)
[2019-06-18] MEDS: FISH OIL CONCENTRATE PO SCH (08:27)
[2019-06-18] MEDS: THERA M PLUS PO SCH (08:27)
[2019-06-18] MEDS: HEPARIN SUBQ SCH (08:27)
[2019-06-18] MEDS: LANTUS INSULIN SUBQ SCH (08:30)
--- NOTE | 2019-06-18 12:06 | PROGRESS NOTE ---
DATE: 06/18/2019 INTERVAL HISTORY: No acute events overnight. I talked with telemetry, and I was informed that he did have an episode of 13 beats of nonsustained ventricular tachycardia at about 11 p.m. on 06/17/2019. The patient could not remember if he actually felt having those symptoms or not. SUBJECTIVE: In the morning time, he is feeling fine. He denies any chest pain, shortness of breath. He has occasional cough. He thinks he does need some support while walking in and out of the bathroom. We discussed about need for IV antibiotics. We discussed about pacemaker, pneumonia, diabetes control, need for insulin. I answered all of his questions. On my second evaluation, his family was at bedside. OBJECTIVE: Vital Signs: Temperature of 97.5 degrees, pulse 72, respiratory rate 15, blood pressure is 90/60, saturating 100% on room air. General: Not in any acute distress. Oral cavity is moist. Lungs: Air entry bilaterally equal. No wheeze, rhonchi, or crackles. Cardiovascular: S1, S2 normal. Appears normal sinus rhythm on bedside monitor. Abdomen: Soft, nontender. He has mild bilateral lower extremity edema extending up to midshin level. He is alert and oriented x3. Input and output suggests -400 mL. LABORATORY DATA: CBC is essentially unremarkable with hemoglobin of 11, normal WBC of 7.27, platelets of 161,000. BMP suggestive of chronic kidney disease stage 3. His BUN is 37, creatinine 1.4, blood glucose 125. He did have an episode of hypoglycemia with blood glucose of 59. MICROBIOLOGY: No new microbiological data. Blood cultures drawn on 06/16/2019 have not shown any growth to date. IMAGING: No new chest x-ray. ASSESSMENT AND PLAN: 1. Acute respiratory failure due to Pseudomonas cavitary pneumonia leading to septic shock, now improving. First day of negative blood culture is 06/16/2019. Continue intravenous cefepime for a total of 6 weeks due to presence of pacemaker. He has a right-sided peripherally- inserted central catheter line. Infectious Disease team on board. 2. History of ventricular arrhythmia and episodes of intermittent ventricular tachycardia. He received an additional dose of sotalol yesterday. I will give him additional dose today since he had ventricular tachycardia on 06/17/2019, nighttime. Increase his current dose of sotalol. He is status post automatic implantable cardioverter-defibrillator. Cardiology team on board. 3. History of diabetes mellitus, and now with uncontrolled hyper and hypoglycemia. I will stop his sitagliptin, and decrease sliding scale insulin dose considering hypoglycemia. Continue insulin glargine. 4. History of coronary artery disease, status post coronary artery bypass graft. Continue his home medications of aspirin, atorvastatin, prasugrel. Appreciate Cardiology recommendations. 5. History of kidney donation, status post unilateral nephrectomy and chronic kidney disease stage 3 after that. Currently, kidney function appears stable. 6. Disposition. I will consult [employer] Level Staff [employer]ant for home intravenous antibiotics and a Walker. I am awaiting further Cardiology recommendation, and based on that, my plan is to discharge him in the next 24 hours or so with home physical therapy. Plan of care discussed with the patient, and all of his questions have been satisfactorily answered. cc: Adi Hogan MD
[2019-06-18] MEDS: MAXIPIME 2 GM/NS 2 GM/100 ML IVPB IV SCH ×2 (13:53→21:50)
[2019-06-18] MEDS ORDERED: GAMUNEX-C 10% IV ONE (15:00)
[2019-06-18] MEDS ORDERED: BETAPACE PO ONE (16:00)
[2019-06-18] MEDS ORDERED: AYR NASAL SPRAY NAS PRN (16:50)
[2019-06-18] MEDS: PAXIL PO SCH (21:49)
[2019-06-18] MEDS: MELATONIN PO SCH (21:49)
[2019-06-18] MEDS: LIPITOR PO SCH (21:49)
[2019-06-18] MEDS: ROBITUSSIN-AC PO PRN (22:11)
--- NOTE | 2019-06-18 22:26 | INFECTIOUS DISEASE PROGRESS NO ---
DATE: 06/18/2019 PRESENT ILLNESS: The patient has a Pseudomonas pneumonia and bacteremia. The patient is predisposed to this because he has interstitial lung disease and also because he is on steroids to treat his interstitial fibrosis in the lungs. Also, today I discovered that the patient has an immunoglobulin deficiency. Specifically, his IgG level is 385, and this certainly would predispose the patient to have infections also. MEDICATIONS: The patient is on cefepime 2 g IV every 8 hours. PHYSICAL EXAMINATION: Vital Signs: Temperature is 97.9 degrees, pulse 73, respirations 12, blood pressure 96/54. General: This is an ill-appearing elderly male. He is in no acute distress. Head/eyes/ears/nose/throat: He can hear my spoken words and see near objects. He does not have any white coating on his tongue. Neck: No stiffness. Lungs: Clear to auscultation. Cardiovascular: Heart rate is regular except for occasional PVCs. Abdomen: Soft and nontender. Extremities: There is edema, but no erythema in the legs. A PICC is present in the right arm.Thorax: The patient has a combination pacemaker defibrillator on the left side. The site is not swollen or erythematous. Neurologic: The patient is alert. He can move his extremities. There is no tremor. LAB AND X-RAY: The patient's IgG level is low at 385. IgA is at 113, which is in the normal range. Creatinine is 1.4. GFR is 50. CBC shows a white count of 7270, hemoglobin 11, platelet count 161,000. ASSESSMENT AND PLAN: 1. The patient has a Pseudomonas pneumonia and bacteremia. My plan is to treat the patient for 6 weeks with cefepime because the patient's pacemaker may have become hematogenously infected while the patient was bacteremic. After that, normally I would like to give a low dose of an oral antibiotic such as Levaquin for the patient to take indefinitely, but in Mr. Reddy case that will not be possible because he at one time did take Levaquin and he went into ventricular tachycardia. Therefore, I will stop his antibiotics at the end of 6 weeks. This is the second day of treatment with cefepime with day #1 being the first day that the patient's blood cultures were sterile. 2. Also, as regarding the patient's immunoglobulin deficiency, I have ordered a 20 g dose of IVIG for now and 1 for the morning. I told the patient that I will wait about 6 to 8 weeks and if his IgG level becomes low like it is now, that I think he would be a candidate to have monthly infusions of immunoglobulin. COMORBIDITIES: The patient is elderly. He has an immunoglobulin deficiency. He has interstitial lung disease and he also is on steroids for that condition. The patient also is diabetic when he is on steroids like he has now. cc: Sylvester Leon MD MTDD
--- NOTE | 2019-06-19 01:36 | PROGRESS NOTE ---
DATE: 06/18/2019 SUBJECTIVE: The patient continues without chest discomfort or shortness of breath on room air. He does report some tendency for persistent bleeding when he has had a blood draw or subcutaneous heparin injection. It is noteworthy that he has continued on aspirin and Effient since his last coronary angioplasty/stent procedure more than a year ago. OBJECTIVE: Blood pressure 100/54, heart rate 78, oxygen saturation 99% on room air. There is no significant jugular venous distention. Chest is clear to auscultation. Cardiac exam reveals a regular rate and rhythm without appreciable murmur or gallop. There is no evidence of peripheral edema. DIAGNOSTIC DATA: Telemetry reviewed and demonstrates sinus rhythm with occasional premature ventricular complex, but no further runs of nonsustained ventricular tachycardia or ventricular tachycardia requiring antitachycardia pacing from implanted defibrillator. LABORATORY DATA: Includes a white blood cell count of 7.27, hematocrit 35.2, hemoglobin 11.0, platelet count 161,000. Sodium 134, potassium 4.4, chloride 105, carbon dioxide 23, BUN 37, creatinine 1.4, glucose 206. IMPRESSION: 1. Recurrent paroxysms of ventricular tachycardia. This appears to have stabilized after gentle increase in sotalol dose to a total of 100 mg p.o. daily. 2. Pneumonia due to pseudomonas, with positive blood cultures. Patient clinically improving with antibiotic regimen. Pseudomonas organism highly unusual for endocarditis, making the latter unlikely. 3. Ischemic cardiomyopathy with left ventricular ejection fraction of 30%. The patient is status post implantable defibrillator. 4. Ventricular arrhythmias. 5. Atherosclerotic coronary disease, with previous coronary artery bypass grafting in the past and later coronary angioplasty/stenting of saphenous vein graft to the diagonal more than a year ago. The patient continues without angina. 6. Hypertension. 7. Hyperlipidemia. 8. 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 RECOMMENDATIONS: 1. Continue sotalol at total of 120 mg p.o. daily. 2. As the patient mobilizes, it is reasonable to discontinue subcutaneous heparin. 3. Given that the patient is well over 12 months since his coronary angioplasty/stent procedure, it is reasonable to switch him from Effient to Plavix, and continue aspirin. 4. Conservative cardiovascular management overall. cc: Dale Troy MD
--- NOTE | 2019-06-19 02:43 | PULMONOLOGY PROGRESS NOTE ---
DATE: 06/18/2019 SUBJECTIVE: The patient is awake, alert, and conversant. He has a dry cough. OBJECTIVE: Vital Signs: The patient has been afebrile for the last 24 hours. Blood pressure 100/54, heart rate 78, respiratory rate 16, oxygen saturation 99% on room air. HEENT: Pupils are equal and reactive. Oropharynx appears clear. Neck: Supple. Chest: Reveals occasional rhonchi bilaterally. Cardiac: S1-S2. Abdomen: Soft. Extremities: Without edema. LABORATORIES: Sodium 134, potassium 4.4, chloride 105, bicarbonate 23, BUN 34, creatinine 1.4, glucose 206. Microbiology, no new data. IMPRESSION: A 68-year-old with: 1. Pseudomonas aeruginosa pneumonia with septicemia and shock. 2. Severe immunoglobulin deficiency. The patient's IgG level was 385 mg/dL. He received 30 g of immunoglobulin on 06/15/2019 and an additional 20 g of immunoglobulin today. 3. Diabetes mellitus. 4. Ischemic cardiomyopathy. 5. Previous nephrectomy. PLAN: 1. Continue antibiotics under the direction of Dr. Sylvester Leon. 2. Recommend repeat immunoglobulin level in 6 to 8 weeks. 3. Continue bronchial hygiene. 4. Anticipate discharge home soon. cc: Cy Beckwith MD
[2019-06-19] MEDS: PRILOSEC PO SCH (06:09)
[2019-06-19] MEDS: MAXIPIME 2 GM/NS 2 GM/100 ML IVPB IV SCH (06:10)
[2019-06-19] MEDS: HUMALOG SUBQ SCH ×2 (06:39→11:46)
[2019-06-19 06:48] LABS: ALB/GLOB RATIO 0.8; ALBUMIN 2.6 g/dL (3.5-5.0); CALCIUM 8.8 mg/dL (8.8-10.2); CREATININE 1.4 mg/dL (0.7-1.2); MAGNESIUM 2.2 mg/dL (1.5-2.7); PHOSPHORUS 2.6 mg/dL (2.7-4.5); POTASSIUM 4.3 mmol/L (3.5-5.1); TOTAL BILIRUBIN 0.51 mg/dL (0.20-1.00); TOTAL PROTEIN 5.8 g/dL (6.3-8.3)
[2019-06-19] MEDS ORDERED: GAMUNEX-C 10% IV ONE (08:00)
[2019-06-19] MEDS: PREDNISONE PO SCH (08:43)
[2019-06-19] MEDS: THERA M PLUS PO SCH (08:44)
[2019-06-19] MEDS: FLOMAX PO SCH (08:44)
[2019-06-19] MEDS: ASPIRIN EC PO SCH (08:44)
[2019-06-19] MEDS: LANTUS INSULIN SUBQ SCH (08:44)
[2019-06-19] MEDS: FISH OIL CONCENTRATE PO SCH (08:44)
[2019-06-19] MEDS ORDERED: BETAPACE PO SCH (09:00)
[2019-06-19] MEDS ORDERED: PLAVIX PO SCH (09:00)
[2019-06-19] MEDS ORDERED: ALDACTONE PO SCH (10:15)
[2019-06-19 11:47] VITALS: BP 100/56
--- NOTE | 2019-06-19 12:50 | PROGRESS NOTE ---
DATE: 06/19/2019 INTERVAL HISTORY: No acute events overnight. He did not have any more episodes of ventricular tachycardia. His prasugrel has been changed to clopidogrel. SUBJECTIVE: Mr. Reddy is feeling fine. He states with the use of a walker, he was able to walk in the hallway. His is at bedside. OBJECTIVE: Vital Signs: Temperature 97.5 degrees, pulse 68, respiratory 20, blood pressure 104/56, and saturating 98% on room air. General: He is not in acute distress. HEENT: Oral cavity is moist. Air entry bilaterally equal. No wheeze, rhonchi, or crackles. Cardiovascular: S1, S2 normal. Regular. No murmur, rub, or gallop. He has a sternotomy site which is well healed. Abdomen: Soft and nontender. Extremities: He has lower extremity edema extending up to midshin level. Neurologic: He is alert and oriented x3, sitting in the chair comfortably. LABORATORY: No CBC today. BMP suggestive of chronic kidney disease stage 3. MICROBIOLOGY: No new data. No new imaging. ASSESSMENT AND PLAN: 1. Acute respiratory failure due to Pseudomonas pneumonia leading to septic shock, now improving. First day of negative blood culture 06/16. Continue intravenous antibiotics for a total of 6 weeks because he has a pacemaker. ID on board. 2. History of ventricular arrhythmia and episodes of ventricular tachycardia during this hospital admission. He is status post AICD in the past. Continue higher dose of sotalol. 3. History of diabetes mellitus with hemoglobin A1c more than 10. Continue current dose of insulin glargine and sliding scale insulin. 4. History of coronary artery disease status post CABG and stent. The latest stent being in December of 2016, and history of chronic systolic congestive heart failure with ejection fraction of 30%. 5. Continue home aspirin, atorvastatin, and clopidogrel. I will resume his home spironolactone. DISPOSITION: I was informed that unfortunately he does not have intravenous antibiotic coverage outpatient. We are trying to see if he can get antibiotics every day if he comes to the hospital or possibly LTAC. Plan of care discussed with the patient, and his at bedside. Their questions have been answered. cc: Adi Hogan MD
--- NOTE | 2019-06-19 16:53 | INFECTIOUS DISEASE PROGRESS NO ---
DATE: 06/19/2019 PRESENT ILLNESS: Mr. Reddy is being treated for a Pseudomonas pneumonia with an associated bacteremia. He also has an immunoglobulin deficiency with a low IgG level. MEDICATIONS: He is receiving cefepime 2 gm IV every 8 hours based on sterile blood cultures. Today is day 3 of treatment for his bacteremia. PHYSICAL EXAMINATION: Vital Signs: Temperature is 97.5 degrees, pulse rate 68, respiratory rate 20, blood pressure 104/56. O2 saturation is 98% on room air. General: This is a chronically ill- appearing, elderly gentleman who is sitting up in a chair currently in no acute distress. HEENT: Atraumatic, normocephalic. Oral mucous membranes are pink and moist. Conjunctivae are pink. Neck: Supple. Trachea is midline. Cardiovascular: Heart rate and rhythm are regular. Normal sinus rhythm on the monitor. Respiratory: Lung sounds have some scattered rhonchi in the upper lobes, diminished in the mid and bases with some mild bibasilar crackles. No work of breathing is noted. Abdomen: Soft, round, nontender. Bowel sounds are active. Integumentary: Skin is warm and dry. He has a PICC line in place to the right upper arm. The site is without edema, erythema, or drainage. Extremities: There is 2+ pretibial edema noted bilaterally. Neurologic: He is awake, alert, oriented, able to move around the room with assistance. LABORATORY AND X-RAY: Today there is no CBC, but his creatinine is 1.4, GFR 50, total bilirubin is 0.51, AST 21, ALT 21, alkaline phosphatase 69. Previously his IgG was 401. His sputum and blood have both grown Pseudomonas aeruginosa with sterile blood cultures found on June 16. No imaging reports today. ASSESSMENT AND PLAN: Mr. Reddy is being treated for a Pseudomonas pneumonia and bacteremia, states he is feeling a little better today. He does have interstitial fibrosis, as well as an immunoglobulin deficiency. He has been treated with IVIG on this admission. We will plan to recheck his immunoglobulin levels in 6 to 8 weeks. He is receiving cefepime which we will continue. Today is day 3 of treatment for his bacteremia which he will need for a total of 6 weeks due to the presence of a pacemaker/defibrillator, which may have been hematogenously infected. Once he is discharged the plan will be to see him back in our office in 3 weeks and then again in 6 weeks, at which time we should be able to remove his PICC line. These plans have been discussed with and recommended by Dr. Leon. Comorbidities for Mr. Reddy include that he is elderly with interstitial lung disease, on steroids with diabetes mellitus and immunoglobulin deficiency. Dictated by SIS Quinonez for Sylvester Leon MD cc: Sylvester Leon MD
--- NOTE | 2019-06-20 13:57 | DISCHARGE SUMMARY ---
ADMISSION DATE: 06/13/2019 DISCHARGE DATE: 06/19/2019 DISCHARGE DISPOSITION: Home on home intravenous antibiotics through right-sided arm PICC line for Pseudomonas bacteremia. DISCHARGE CONDITION: Hemodynamically stable. He is alert, oriented x3. He denies any chest pain, shortness of breath, or cough. He was able to walk in the hallway. DISCHARGE DIAGNOSES: 1. Acute respiratory failure. 2. Multifocal cavitary Pseudomonas pneumonia. 3. Septic shock due to Pseudomonas pneumonia and Pseudomonas bacteremia. 4. Episodes of nonsustained ventricular tachycardia. 5. Uncontrolled diabetes mellitus with hyper- and hypoglycemia. 6. Acute kidney injury on chronic kidney disease stage III. OTHER DIAGNOSES: 1. History of coronary artery disease status post coronary artery bypass grafting as well as multiple stents in 2017. 2. History of chronic systolic congestive heart failure, ejection fraction of 30%. 3. History of [id number] diabetes mellitus, now needing insulin. 4. Essential hypertension. 5. Anxiety. 6. History of ventricular tachycardia status post automatic implanted cardioverter/defibrillator. 7. Severe immunoglobin deficiency. DISCHARGE MEDICATIONS: 1. Cefepime intravenously 2 g every 8 hours for a total of 6 weeks, first day of negative blood culture being June 16. 2. Aspirin 81 mg daily. 3. Atorvastatin 80 mg daily. 4. [place]-3 fatty acids 1000 mg daily. 5. Tamsulosin 0.4 mg daily. 6. Magnesium 400 mg b.i.d. 7. Multivitamin 1 tablet daily. 8. Nitroglycerin 0.4 mg sublingual as needed for chest pain. 9. Paroxetine 10 mg every other day. 10. Omeprazole 20 mg daily. 11. Ranolazine 500 mg b.i.d. 12. Spironolactone 12.5 mg daily. 13. Tramadol 50 mg as needed. 14. Valsartan 20 mg daily. 15. Insulin glargine 15 units subcutaneously daily. 16. Clopidogrel 75 mg daily. 17. Prednisone 10 mg daily. 18. Sotalol 120 mg daily. VITAL SIGNS: At time of discharge, temperature 98 degrees, pulse 71, respiratory 18, blood pressure 100/56, saturating 98% on room air. PHYSICAL EXAMINATION: General: Mr. Reddy is not in acute distress. HEENT: Oral cavity is moist. Lungs: Air entry bilaterally equal. No wheeze, rhonchi, crackles. Cardiovascular: S1, S2 normal. No murmur, rub or gallop. Abdomen: Soft, nontender. He has mild bilateral lower extremity edema. Central nervous system: He is alert and oriented x3. SIGNIFICANT LABORATORY DATA: During hospital admission and discharge. WBC 7.27, hemoglobin 11, platelets 161,000. Potassium 4.3, BUN 34, creatinine 1.4. His blood glucose is 310. Urine histoplasma antigen was negative. INR is 1.05. His QuantiFERON TB gold test was negative. HOSPITAL COURSE SUMMARY: Mr. Reddy is a 68-year-old man with past medical history of coronary artery disease requiring CABG and stent in 2006, chronic systolic congestive heart failure with ejection fraction of 30%, who came in with chief complaints of cough and shortness of breath, which has been ongoing since about 1 week's time. He had gone to [facility] for a similar process in April. He was diagnosed with interstitial lung disease, was placed on high-dose steroids and subsequently he also developed steroid-induced hyperglycemia, type 2 diabetes mellitus. When he presented to the emergency room to [facility], he was found to have a temperature of 96.8 degrees. He was tachycardic with pulse of 96 per minute, and he was profoundly hypotensive with systolic blood pressure of 70/50, so the Hospitalist team was consulted for further management. The patient was diagnosed with septic shock due to multifocal pneumonia as was evidenced on CT scan. His sputum culture and blood culture grew Pseudomonas aeruginosa. He was resuscitated with intravenous fluids, intravenous norepinephrine and intravenous antibiotics and was kept in ICU for further management. With intravenous antibiotics, his clinical condition improved and he was breathing well on room air and repeat blood cultures came negative. Considering he has a pacemaker, it was decided to treat his Pseudomonas bacteremia with a total of 6 weeks of intravenous antibiotics as per Infectious Disease recommendation. His first day of negative blood culture is June 16. He has a right arm PICC line through which he should complete the course of antibiotic and see Infectious Disease in the office. While inside the hospital, patient also had episodes of nonsustained ventricular tachycardia. He previously had an ICD placed for ventricular arrhythmia. He was taking sotalol at home and his sotalol dose was increased, following which he has not had any nonsustained ventricular tachycardia for 24 hours. He was advised to have follow up with his regular physician. His dual anti-platelet was changed from prasugrel to clopidogrel and he was continued on aspirin. He was advised to have outpatient Cardiology followup. Considering he has had significant hyperglycemia and hemoglobin A1c of more than 10.1, it was decided to put him on insulin and he was started on insulin, following which his blood sugars are reasonably well controlled. Partly, his hypoglycemia was also related to prednisone which was decreased to 10 mg and he was advised to have outpatient followup with his tile mechanic helper. At the time of discharge, detailed discharge instructions were provided to the patient. Plan of care was extensively discussed with the patient and his . All of their questions were satisfactorily answered. cc: Adi Hogan MD ADDENDUM: Home health agency had called to inform me that Mr. Reddy had Blood pressure of 96/56 mmHg. He was asymptomatic. They asked me if patient should be taking both Sotalol and Valsartan. I informed them that he should continue his Sotalol and hold Valsartan. He should see his regular physician and the kennel aide in 7 days time and have discussion about starting Valsartan then. TEJA
== END 2019-06-19 13:44 | disposition home health service (06) | DRG 871 ==
LOC: ED 13:43 → SUATTDRO 15:39 → EDIPHOLD 15:39 → ICU 16:56 → 2N 06-16 19:14
PROVIDERS: ATTEND Internal Medicine

== ENCOUNTER 2019-07-28 12:20 | Inpatient (IN) ==
[2019-07-28] MEDS ORDERED: TYLENOL PO PRN (14:20)
[2019-07-28] MEDS ORDERED: NS 1,000 ML IV ONE (14:35)
--- NOTE | 2019-07-28 15:20 | HISTORY AND PHYSICAL ---
Direct admission from Dr. Leon' office. PRIMARY CARE PROVIDERS: Dr. Tej Gracia in [place]. STEAM BOILER FIREMAN: Dr. Paz. ENVIRONMENTAL SCIENCE PROGRAM DIRECTOR: Dr. Mukesh Sam. CHIEF COMPLAINT: Direct admit from Dr. Leon' office for creatinine of 3.8. HISTORY OF PRESENT ILLNESS: Mr. Reddy is a 68-year-old gentleman, recently discharged from our service from Pseudomonas pneumonia as well as bacteremia. He just finished his last dose of IV antibiotics last night. PAST MEDICAL HISTORY: Ischemic cardiomyopathy, systolic congestive heart failure, EF of 30%, coronary artery disease status post CO, and CABG x4 in 2001, reports 8 to 9 cardiac stents, ventricular tachycardia that required cardiac ablation and pacemaker defibrillator and he is currently been on sotalol for, we had escalated him up to [address] Paz has taken him back down to 80 mg b.i.d. 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 PAST SURGICAL HISTORY: CABG x4 in 2001, right nephrectomy in 1991, cholecystectomy, appendectomy, surgery for a PE, Peyronie's disease, cardiac ablations, cardiac stents x8 or 9, low back surgery. SOCIAL HISTORY: He lives at home with his . He has had home health secondary to IV antibiotics but just completed that. He still has his PICC line in. Retired from . Never been a smoker. FAMILY HISTORY: Mother with coronary artery disease, stroke, and unknown cancer. Father with CO at the age of 58. ALLERGIES: Levofloxacin causing to have ventricular tachycardia. MEDICATIONS: Home medications are currently being reconciled. He does report that his sotalol was taken down from 120 to 80 mg b.i.d. and his Plavix was changed back to Effient. REVIEW OF SYSTEMS: The patient reports feeling nauseated with some diarrhea and vomiting over the last 10 days. He has really had no appetite, reports a bad taste in his mouth after starting the antibiotics, maybe had some shortness of breath. No headache. No fever. No chills. No chest pain. No heart palpitations. PHYSICAL EXAMINATION: VITAL SIGNS: Are being obtained. GENERAL: Mr. Reddy is a 68-year-old male sitting up on the side of the bed in no acute distress. HEENT: Atraumatic, normocephalic. PERRL. NECK: Supple. Trachea midline. CARDIOVASCULAR: S1, S2 appreciated. No murmurs, gallops, or rubs noted. One plus pitting edema. Bilateral pedal pulses are palpable. Did not appreciate any JVD. PULMONARY: Bilateral breath sounds clear bilaterally. GASTROINTESTINAL: Soft, nontender, nondistended. Positive bowel sounds 4 quadrants. Moves all extremities well. NEUROLOGIC: No focal deficits noted. SKIN: Appears to be pale, but warm, dry, and intact. LABORATORY AND DIAGNOSTIC DATA: Has been ordered. Reported creatinine from Dr. Leon' office was 3.8. ASSESSMENT AND PLAN: 1. Acute kidney injury. Reported creatinine is 3.8. We will consult Dr. Gonzalez, renal profile, check renal ultrasound. We will go over his medications that will be reconciled. He does report numerous episodes of diarrhea, 1 episode of vomitus, and really no appetite or hydration over the last 10 days. 2. Ischemic cardiomyopathy. 3. Systolic congestive heart failure. 4. Severe coronary artery disease status post myocardial infarction, stents, and coronary artery bypass grafting. 5. Ventricular tachycardia status post ablations. 6. Pacemaker defibrillator. 7. Depression, stable. 8. Hyperlipidemia. 9. Gastroesophageal reflux disease. 10. Interstitial lung disease. 11. Diabetes mellitus type 2. 12. Recently discharged after Pseudomonas pneumonia and bacteremia, just finished a course of I believe intravenous cefepime 2 g every 8 hours. His last dose was last night. 13. Further recommendation to follow physician evaluation, laboratory and diagnostic data. Dictated by SIS Marie for Pedrito Telles MD cc: MD Gabo Joya MD [facility]
--- NOTE | 2019-07-28 15:35 | Diag Imaging Result Doc PS360 ---
EXAM: US RENAL 2 (RETROPER) COMPLETE 07/28/2019 HISTORY: MATTHEW TECHNIQUE: Renal ultrasound COMMENT: The urinary bladder is not distended. There is no evidence of hydronephrosis. The right kidney is surgically absent. The left is somewhat hypertrophic measuring 14.8 x 7.1 x 6 cm. There are no stones. There are no previous ultrasound examinations. There is what appears to be a cyst in the lower pole measuring 1.2 cm in greatest dimension. It is not completely cleared of echoes. This may have been present on the previous CT of 07/09/2015 however at which time it had a CT density of less than 11 Hounsfield units. This is presumably a cyst. IMPRESSION: No evidence of obstructive uropathy. Electronically signed by Darion Rios 07/28/2019 3:33 PM
--- NOTE | 2019-07-28 16:11 | Diag Imaging Result Doc PS360 ---
EXAM: CHEST-2 VIEWS 07/28/2019 HISTORY: direct admit TECHNIQUE: PA and lateral chest COMMENT: There is a PICC line on the right with its tip in the superior vena cava. There is a pacemaker on the left and there are sternotomy wires. The lungs are unchanged in appearance compared to 07/09/2019. The heart size and pulmonary vascularity are stable. IMPRESSION: No acute disease. Electronically signed by Darion Rios 07/28/2019 4:09 PM
[2019-07-28 17:16] LABS: ALBUMIN 3.6 g/dL (3.5-5.0); CALCIUM 8.4 mg/dL (8.8-10.2); CREATININE 4.3 mg/dL (0.7-1.2); PHOSPHORUS 3.6 mg/dL (2.7-4.5); POTASSIUM 4.1 mmol/L (3.5-5.1)
[2019-07-28 17:46] LABS: BASO# 0.04 X1000 (0.0-0.2); BASO% 0.8 % (0.0-0.8); EOS# 0.08 X1000 (0.0-0.7); EOS% 1.6 % (0.0-10.0); HEMATOCRIT 34.8 % (42.0-52.0); HEMOGLOBIN 10.5 g/dL (14.0-18.0); IMM GRAN# 0.02 X1000 (0.0-0.04); IMM GRAN% 0.4 % (0.0-0.5); LYMPH# 1.96 X1000 (1.2-3.4); LYMPH% 38.6 % (20.5-51.1); MCH 30.7 PG (27-31); MCHC 30.2 g/dL (33-37); MCV 101.8 FL (81-99); MONO# 0.46 X1000 (0.11-0.59); MONO% 9.1 % (1.7-9.3); MPV 12.4 FL (7.4-10.4); NEUT# 2.52 X1000 (1.4-6.5); NEUT% 49.5 % (42.2-75.2); PLT 141 X1000 (130-400); RBC 3.42 XMIL (4.7-6.1); RDW 15.2 % (11.5-14.5); WBC 5.08 X1000 (4.8-10.8)
[2019-07-28] MEDS: NS 1,000 ML IV SCH (18:17)
--- NOTE | 2019-07-28 18:17 | HISTORY AND PHYSICAL ---
ADDENDUM REPORT This is a patient that I have seen definitely in the past. CAD, status post CABG who has been on IV antibiotics for Pseudomonas pneumonia and bacteremia. He has been on cefepime. He came in for evaluation. He has not been feeling well, nausea, vomiting. His creatinine was reportedly up to 3.8. It is currently 4.3, and I think that is a big change for him. He has steadily been increasing since the . It was normal and then it just kind of went up. He has been a little bit abnormal before, but this is a big change. The patient was admitted for treatment of acute kidney injury. He has had poor p.o. intake. He certainly had reason for these issues. We will pursue acute kidney injury workup. He has finished his antibiotics for pseudomonas. Certainly possible this is urine so we will continue to follow closely. We will continue hydration. Monitor electrolytes and follow and the stool study tests, they checked stool studies and then we will see how things look. cc: Pedrito Telles MD
[2019-07-28 19:58] LABS: URINE SOURCE CLEAN CATCH
[2019-07-28 20:05] LABS: BILIRUBIN URINE NEGATIVE (NEGATIVE); BLOOD URINE SMALL (NEGATIVE); COLOR YELLOW; GLUCOSE URINE NEGATIVE (NEGATIVE); KETONE URINE TRACE mg/dL (NEGATIVE); LEUKOCYTES URINE NEGATIVE (NEGATIVE); NITRITE URINE NEGATIVE (NEGATIVE); PROTEIN URINE 200 mg/dL (NEGATIVE); SP GRAVITY URINE 1.017; TURBIDITY URINE CLEAR (CLEAR); UROBILINOGEN URINE NORMAL (NORMAL)
[2019-07-28 20:06] LABS: UR EPITHELIAL CELLS <10 /HPF (<10); URINE BACTERIA NEGATIVE /HPF
--- NOTE | 2019-07-28 20:23 | NEPHROLOGY CONSULTATION ---
DATE: 07/28/2019 REASON FOR CONSULTATION: Acute kidney injury. HISTORY OF PRESENT ILLNESS: Mr. Reddy is a 68-year-old white male with diabetes, hypertension, ischemic heart disease, depressed ejection fraction, GERD, etc. He was admitted to the hospital in [place] in May from June 13 until June 19 with Pseudomonas pneumonia and bacteremia with septic shock. At that time he had acute kidney injury with maximum creatinine 2.1 and that was on presentation. Resolved to 1.4 by the time of discharge and 1.1 as of July 06. He was discharged with ongoing IV antibiotics per Dr. Leon to complete his course of treatment for Pseudomonas. Cefepime 2 g every 8 hours for total of 6 weeks was the plan because of pacemaker wires. He did well initially and went home eating. No other new problems. In the last week to 2 weeks he has been experiencing anorexia and malaise. These symptoms were associated with nausea and decreased p.o. intake. He was trying to drink more fluids but he recognizes that he probably was not. In this context, he had routine outpatient laboratory screening in the context of his ongoing antibiotic treatment. His creatinine was 1.4 on July 13, 2.2 on July 20 and then 3.8 on yesterday prompting his admission to the hospital. 4.3 today. He has not noticed any new voiding symptoms. No new rashes, arthralgias. No hematuria, no difficulty initiating stream, etc. PAST MEDICAL HISTORY: As above. He also has a solitary kidney after kidney donation in 1991. HOME MEDICATIONS: Include multivitamin, tramadol, atorvastatin, omeprazole, paroxetine, fish oil, spironolactone, insulin, prednisone, Effient, aspirin, metformin, sotalol. ALLERGIES: Levofloxacin. SOCIAL HISTORY: , lives with his . Never smoker. FAMILY HISTORY/REVIEW OF SYSTEMS: Noncontributory. Most significant positives are related to his family history of heart disease. Evolving PND over the last several days. PHYSICAL EXAMINATION: Vital Signs: Blood pressure 143/67, heart rate 61, respiration 19, afebrile. General: He is a chronically ill-appearing, white male with average muscle mass. Skin is somewhat pale but dry. No rashes. Pupils are equal and round. Conjunctivae are pink and moist. Oropharynx is clear. Neck: Supple. Trachea is midline. Neck vein distention is present with hepatojugular reflux. PMI is displaced and enlarged. Auscultation demonstrates a regular rhythm with an S4. Lungs: Equal. No crackles anteriorly. Abdomen: Soft, nontender. Bowel sounds present. No organomegaly. Extremities: With trace edema. No clubbing or cyanosis. IMPRESSION: Acute kidney injury. Acute tubular necrosis seems most likely. Cephalosporins certainly have significant incidence of acute interstitial nephritis. He does not have any other systemic allergic symptoms to go along with this. He appears moderately volume expanded and not hypovolemic so I will await urine electrolytes to decide regarding IV fluid resuscitation. Renal imaging. Will follow with you. cc: Gabo Gonzalez MD
[2019-07-28 20:32] LABS: UR CREAT RANDOM 114.8 mg/dL (14-26)
[2019-07-28] MEDS: ZOFRAN IV PRN (22:34)
[2019-07-29 05:49] LABS: BASO% 1.6 % (0.0-0.8); EOS# 0.33 X1000 (0.0-0.7); EOS% 5.2 % (0.0-10.0); HEMATOCRIT 33.9 % (42.0-52.0); HEMOGLOBIN 10.1 g/dL (14.0-18.0); IMM GRAN# 0.04 X1000 (0.0-0.04); IMM GRAN% 0.6 % (0.0-0.5); LYMPH# 2.54 X1000 (1.2-3.4); LYMPH% 39.9 % (20.5-51.1); MCH 30.7 PG (27-31); MCHC 29.8 g/dL (33-37); MONO# 0.79 X1000 (0.11-0.59); MONO% 12.4 % (1.7-9.3); MPV 11.9 FL (7.4-10.4); NEUT# 2.56 X1000 (1.4-6.5); NEUT% 40.3 % (42.2-75.2); PLT 156 X1000 (130-400); RBC 3.29 XMIL (4.7-6.1); RDW 15.3 % (11.5-14.5); WBC 6.36 X1000 (4.8-10.8)
[2019-07-29] MEDS: NS 1,000 ML IV SCH ×3 (06:04→21:01)
[2019-07-29] MEDS: ZOFRAN IV PRN ×3 (08:33→21:01)
[2019-07-29] MEDS ORDERED: MAGNESIUM SULFATE 2 GM/S.W.I. 2 GM/50 ML IVPB IV ONE (12:06)
[2019-07-29 14:14] LABS: HEMATOCRIT 31.9 % (42.0-52.0); HEMOGLOBIN 10.1 g/dL (14.0-18.0); MCH 32.5 PG (27-31); MCHC 31.7 g/dL (33-37); MCV 102.6 FL (81-99); MPV 11.9 FL (7.4-10.4); RBC 3.11 XMIL (4.7-6.1); RDW 15.3 % (11.5-14.5); WBC 5.54 X1000 (4.8-10.8)
[2019-07-29 14:42] LABS: ALBUMIN 3.6 g/dL (3.5-5.0); CALCIUM 8.2 mg/dL (8.8-10.2); CREATININE 4.2 mg/dL (0.7-1.2); PHOSPHORUS 4.1 mg/dL (2.7-4.5)
--- NOTE | 2019-07-29 16:24 | PROVIDER PROGRESS NOTE ---
Progress Note Subjective: patient denies any complications during the night. He denies shortness of breath, chest pain, nausea and vomiting, or decreased appetite. Objective: temperature 97.7, pulse 55, respirations 20, blood pressure 117/56, 02 sat 98% on room air. General: Obese, White male sitting up to the side of the bed in no acute distress. HEENT: normocephalic, atraumatic, pupils equal and reactive, mucous membranes moist. Skin: warm and dry. Neck: supple, JVD observed in upright position Cardiovascular: S1S2. Bradycardc rate and rhythm. No murmur or gallop. Respiratory: diminished lung bases posteriorly. Abdomen: soft, nontender, nondistended. Bowel sounds present. : not inspected Extremities: 1+ pitting edema to BLE Neurological: alert and oriented to person place and time. Labs: WBC 6.36, hemoglobin 10.1, hematocrit 33.9, platelet count 156. Intake 1875, output 250. Impression: Acute kidney injury. Acute tubular necrosis versus prerenal versus acute interstitial nephritis. He does not have any systemic allergic symptoms. He has evidence of volume expansion. His Fena score is greater than one. He has a solitary kidney so we will hold off on a renal biopsy. We will continue to hold off on IV fluids. Blood pressure. Stable. Fluid volume. Expanded. Anemia. Stable. Electrolytes. Stable. Anion gap acidosis. Likely related to renal failure. Physical deconditioning. We will order physical therapy. Medication review. He has not started his home medications back.
[2019-07-29] MEDS ORDERED: ULTRAM PO PRN (17:37)
[2019-07-29] MEDS ORDERED: NITROGLYCERIN SL PRN (17:37)
[2019-07-29 17:39] LABS: URINE SOURCE VOIDED
[2019-07-29 17:43] LABS: BILIRUBIN URINE NEGATIVE (NEGATIVE); BLOOD URINE SMALL (NEGATIVE); COLOR YELLOW; GLUCOSE URINE NEGATIVE (NEGATIVE); KETONE URINE NEGATIVE (NEGATIVE); LEUKOCYTES URINE TRACE (NEGATIVE); NITRITE URINE NEGATIVE (NEGATIVE); PROTEIN URINE 100 mg/dL (NEGATIVE); SP GRAVITY URINE 1.014; TURBIDITY URINE CLEAR (CLEAR); UROBILINOGEN URINE NORMAL (NORMAL)
[2019-07-29 17:56] LABS: UR CREAT RANDOM 93.3 mg/dL (14-26); UR PROT RANDOM 98.5 mg/dL
[2019-07-29 18:05] LABS: UR EPITHELIAL CELLS <10 /HPF (<10); URINE BACTERIA NEGATIVE /HPF; URINE RBC <10 /HPF (<10)
--- NOTE | 2019-07-29 18:13 | PROGRESS NOTE ---
DATE: 07/29/2019 SUBJECTIVE: He looks better to me than yesterday, more awake, more alert. He does not look like he is in as much distress. OBJECTIVE: Vital Signs: Blood pressure is 120/60, heart rate of 52, respiratory rate of 18, temperature 97.7 degrees. Cardiovascular: Regular rate and rhythm. Pulmonary: Bilateral breath sounds clear to auscultation. Gastrointestinal: Abdomen was soft, nontender, nondistended. Bowel sounds are positive. LABORATORY DATA: White count 5, hemoglobin and hematocrit 10 and 31, platelets 138,000. BUN and creatinine are 39 and 4.2, which is pretty much unchanged. Magnesium is 1.2. Troponin is still negative. PROBLEM LIST: 1. Acute kidney injury, unclear source. He has had I think a normal kidney function before. His creatinine was mildly elevated but he has been as high as 2 before but 4 is definitely progression. He was normal at the beginning of June. He has been on ceftazidime, but unclear what the etiology is. He could have allergic interstitial nephritis. Eosinophils have been sent off, and it was negative. His urine electrolytes are nonspecific certainly not consistent with prerenal causes. His kidney function really has not bounced back. Continue hydration for now at least 1 more day, but if not improved, then it is in the hands of Nephrology. We will continue to monitor, pursue safety of his blood sugars and follow. 2. From a diabetes standpoint, we will hold metformin and monitor, so we will see how things go. cc: Pedrito Telles MD
[2019-07-29 18:21] LABS: URINE CASTS NONE SEEN; URINE CRYSTALS NONE SEEN; URINE SMALL ROUND CELLS NONE SEEN; URINE YEAST NONE SEEN
[2019-07-29] MEDS: THERA M PLUS PO SCH (20:30)
[2019-07-29] MEDS: PAXIL PO SCH (20:30)
[2019-07-29] MEDS: FISH OIL CONCENTRATE PO SCH (20:30)
[2019-07-29] MEDS: LIPITOR PO SCH (20:30)
[2019-07-30 05:38] LABS: BASO# 0.11 X1000 (0.0-0.2); BASO% 1.8 % (0.0-0.8); EOS# 0.44 X1000 (0.0-0.7); EOS% 7.2 % (0.0-10.0); HEMATOCRIT 34.7 % (42.0-52.0); HEMOGLOBIN 10.4 g/dL (14.0-18.0); IMM GRAN# 0.04 X1000 (0.0-0.04); IMM GRAN% 0.7 % (0.0-0.5); LYMPH% 39.4 % (20.5-51.1); MCH 30.7 PG (27-31); MCV 102.4 FL (81-99); MONO# 0.74 X1000 (0.11-0.59); MONO% 12.2 % (1.7-9.3); MPV 11.1 FL (7.4-10.4); NEUT# 2.36 X1000 (1.4-6.5); NEUT% 38.7 % (42.2-75.2); PLT 141 X1000 (130-400); RBC 3.39 XMIL (4.7-6.1); RDW 15.3 % (11.5-14.5); WBC 6.09 X1000 (4.8-10.8)
[2019-07-30 06:00] LABS: ALBUMIN 3.9 g/dL (3.5-5.0); CALCIUM 7.9 mg/dL (8.8-10.2); CREATININE 4.4 mg/dL (0.7-1.2); PHOSPHORUS 4.4 mg/dL (2.7-4.5); POTASSIUM 4.3 mmol/L (3.5-5.1)
[2019-07-30] MEDS: ZOFRAN IV PRN ×2 (08:04→12:36)
[2019-07-30] MEDS: ASPIRIN PO SCH (08:07)
[2019-07-30] MEDS: PRILOSEC PO SCH (08:07)
[2019-07-30] MEDS: PREDNISONE PO SCH (08:07)
[2019-07-30] MEDS: EFFIENT PO SCH (08:12)
[2019-07-30] MEDS: LANTUS INSULIN SUBQ SCH (08:12)
[2019-07-30] MEDS: NS 1,000 ML IV SCH (11:37)
--- NOTE | 2019-07-30 13:54 | PROVIDER PROGRESS NOTE ---
Progress Note Subjective: He voices little urine output with each void and goes frequently. No other complaints noted. Objective: temperature 98.0, pulse 55, respirations 19, blood pressure 135/64, 02 sat 95% on room air. General: Obese, White male sitting up to the side of the bed in no acute distress. HEENT: normocephalic, atraumatic, pupils equal and reactive, mucous membranes moist. Skin: warm and dry. Neck: supple, JVD observed in upright position Cardiovascular: S1S2. Bradycardc rate and rhythm. No murmur or gallop. Respiratory: diminished lung bases posteriorly. Abdomen: soft, nontender, nondistended. Bowel sounds present. : not inspected Extremities: 1+ pitting edema to BLE Neurological: alert and oriented to person place and time. Labs: WBC 6.09, hemoglobin 10.4, hematocrit 34.7, platelet count 141, sodium 145, potassium 4.3, chloride 110, carbon dioxide 20, BUN 39, creatinine 4.4. Intake 1425, output 100. Impression: Acute kidney injury. Acute tubular necrosis versus acute interstitial nephritis. A renal biopsy would be complicated by his solitary kidney and blood thinner use. My hesitation on starting prednisone is his recent infection. I am going to reach out to colleagues and get a further opinion. Blood pressure. Stable. Fluid volume. Expanded. We will stop his IV fluids. Anemia. Stable. Electrolytes. Stable. Anion gap acidosis. Stable. Physical deconditioning. We will order physical therapy. Medication review. Effient and prednisone started from home medications.
--- NOTE | 2019-07-30 17:34 | PROGRESS NOTE ---
DATE: 07/30/2019 SUBJECTIVE: Patient has no major complaints. OBJECTIVE: Vital Signs: Blood pressure for 135/57, heart rate of 57, respiratory rate of 16. Temperature was stable. Cardiovascular: Regular rate and rhythm. Pulmonary: Bilateral breath sounds clear to auscultation. Gastrointestinal: Abdomen soft, nontender, nondistended. Bowel sounds are positive. LABORATORY DATA: White count 6, hemoglobin and hematocrit 10 and 34, platelets 141,000, creatinine is 4.4, BUN 39 which is really just unremarkable change. Urine electrolytes are not specific. PROBLEM LIST: 1. Acute kidney injury, which I think is just really uncertain if it is allergic interstitial nephritis. He got 6 weeks of IV antibiotics for a Pseudomonas bacteremia which was associated with a pneumonia. It is not like he had endocarditis, so I think it is reasonable to give him a course of steroids to see if it improves. If Dr. Gonzalez feels strongly about it, we can start it while he is in the hospital. 2. Type 2 diabetes. We will monitor his blood sugars. Obviously, we have to hold his metformin. His sugars have actually been pretty good and we will check an A1c here. DISPOSITION: Pending renal workup but again I think it is stable to start steroids to see if it may help his kidney function. cc: Pedrito Telles MD
[2019-07-30] MEDS: FISH OIL CONCENTRATE PO SCH (23:00)
[2019-07-30] MEDS: THERA M PLUS PO SCH (23:00)
[2019-07-30] MEDS: LIPITOR PO SCH (23:00)
[2019-07-30] MEDS: BETAPACE PO SCH (23:00)
[2019-07-30] MEDS: PAXIL PO SCH (23:00)
[2019-07-31 05:14] LABS: BASO# 0.07 X1000 (0.0-0.2); BASO% 1.2 % (0.0-0.8); EOS# 0.34 X1000 (0.0-0.7); EOS% 5.8 % (0.0-10.0); HEMATOCRIT 32.6 % (42.0-52.0); HEMOGLOBIN 9.9 g/dL (14.0-18.0); IMM GRAN# 0.04 X1000 (0.0-0.04); IMM GRAN% 0.7 % (0.0-0.5); LYMPH# 2.13 X1000 (1.2-3.4); LYMPH% 36.2 % (20.5-51.1); MCH 30.8 PG (27-31); MCHC 30.4 g/dL (33-37); MCV 101.6 FL (81-99); MONO# 0.78 X1000 (0.11-0.59); MONO% 13.2 % (1.7-9.3); MPV 11.7 FL (7.4-10.4); NEUT# 2.53 X1000 (1.4-6.5); NEUT% 42.9 % (42.2-75.2); PLT 132 X1000 (130-400); RBC 3.21 XMIL (4.7-6.1); WBC 5.89 X1000 (4.8-10.8)
[2019-07-31 05:28] LABS: HEMOGLOBIN A1C 7.2 % (4.8-6.0)
[2019-07-31 05:41] LABS: ALBUMIN 3.6 g/dL (3.5-5.0); CALCIUM 8.2 mg/dL (8.8-10.2); CREATININE 4.7 mg/dL (0.7-1.2); PHOSPHORUS 4.5 mg/dL (2.7-4.5); POTASSIUM 4.1 mmol/L (3.5-5.1)
[2019-07-31] MEDS: EFFIENT PO SCH (10:04)
[2019-07-31] MEDS: BETAPACE PO SCH ×2 (10:04→20:49)
[2019-07-31] MEDS: PREDNISONE PO SCH (10:05)
[2019-07-31] MEDS: ASPIRIN PO SCH (10:05)
[2019-07-31] MEDS: PRILOSEC PO SCH (10:05)
[2019-07-31] MEDS: LANTUS INSULIN SUBQ SCH (10:12)
--- NOTE | 2019-07-31 12:59 | EKG Report ---
Test Performed on : 07/31/2019 12:48:38 PM Test Reason : Bradycardia, Follow up QTc Blood Pressure : / mmHG Vent. Rate : 058 BPM Atrial Rate : 058 BPM P-R Int : 152 ms QRS Dur : 104 ms QT Int : 510 ms P-R-T Axes : 013 -40 082 degrees QTc Int : 500 ms Sinus bradycardia. Left axis deviation Inferior infarct , age undetermined Possible Anterolateral infarct (cited on or before 17-JUN-2019) Prolonged QT Abnormal ECG When compared with ECG of 17-JUN-2019 10:58, PVCs are no longer present. Inferior infarct is now present. QT is now prolonged. Confirmed by Silvestre Wild MD ([id number]) on 08/04/2019 8:42:15 PM
--- NOTE | 2019-07-31 15:19 | PROGRESS NOTE ---
DATE: 07/31/2019 INTERVAL HISTORY: No acute events overnight. SUBJECTIVE: Mr. Reddy denies new complaints, except orthopnea. He is otherwise feeling better. He is a little nauseous. Denies any vomiting. His appetite still remains low. We discussed about possibly cefepime contributing to his acute tubular necrosis. I answered all of his questions. VITALS: Temperature of 98 degrees, pulse 51, respiratory 18, blood pressure 115/55, saturating 100% on room air. PHYSICAL EXAMINATION: He is not in any acute distress. HEENT: Oral cavity is moist. Neck: No jugular venous distention. Lungs: Air entry bilaterally equal. No wheeze or rhonchi. Mild inspiratory crackles bilateral infrascapular region, more pronounced on the right. Cardiovascular: S1, S2 normal. No murmur or gallop. Abdomen: Soft, nontender. EXTREMITIES: Mild bilateral lower extremity edema.Neurologic: He is alert oriented x3. He has left-sided chest AICD. LABORATORY DATA: WBC of 5.8, hemoglobin 9.9, platelet 132,000, chloride is 110, BUN 42, creatinine 4.7. MICROBIOLOGY: No positive data so far. IMAGING: No new imaging. ASSESSMENT AND PLAN: 1. Acute kidney injury on chronic kidney disease stage 3. Differential includes cefepime induced acute tubular necrosis versus acute allergic interstitial nephritis. He has not been on valsartan at home and is denying taking any [id number] nonsteroidal antiinflammatory medication. He was on low-dose spironolactone though I will continue to watch his kidney function and I will consider increasing the dose of his prednisone to see the response. 2. History of ventricular tachycardia status post automated implantable cardioverter defibrillator, coronary artery disease status post coronary artery bypass grafting in 2001 and multiple stent in 2017. Continue his home aspirin, prasugrel, atorvastatin, sotalol. 3. History of insulin-dependent diabetes mellitus. His blood glucose has been currently acceptable range. I will continue current dose of insulin glargine, which has been controlling his blood glucose adequately. I will consider starting him on sliding scale insulin. 4. Recent episode of Pseudomonas pneumonia with Pseudomonas bacteremia. He has completed 6 weeks course of intravenous antibiotics. Considering he does not have any signs of active infection ongoing, I will closely monitor him as we consider increasing his prednisone dose. DISPOSITION: Continue to monitor patient inside hospital. Plan of care discussed with him. His questions have been answered. cc: Adi Hogan MD [facility]
[2019-07-31] MEDS: HUMALOG SUBQ SCH ×2 (18:36→20:49)
--- NOTE | 2019-07-31 20:27 | NEPHROLOGY PROGRESS NOTE ---
DATE: 07/31/2019 SUBJECTIVE: He is about the same. He has walked around some in the room but really has not ventured out of the room. He is hoping for discharge, eating. OBJECTIVE: Vital Signs: Blood pressure 133/68, heart rate 55, respirations 18, afebrile. Intake 150 mL. Output recorded as 200 mL, but there are least some unrecorded voids. General: No acute distress. Chronically ill-appearing. Skin: Warm and dry. Neck: Neck veins are not distended. No rashes. Heart: Regular. No gallops. Lungs: Equal with a few scattered crackles. Abdomen: Soft, nontender. Bowel sounds are present. Extremities: Trace edema. No clubbing or cyanosis. IMPRESSION: Acute kidney injury. Acute tubular necrosis versus acute interstitial nephritis. His most recent urine had white cells but no red cells. Small blood, 2+ protein. He is really not a candidate for kidney biopsy because of solitary kidney. He is on low-dose prednisone at this time. Cefepime has been withdrawn. I have discussed with him that prednisone 1 mg/kg would be a more appropriate treatment for interstitial nephritis. This is in contrast to simple conservative care versus acute tubular necrosis. He has reasons to be conservative regarding steroid dosing specifically recent bacteremia. I discussed this with Dr. Hogan. Continue current care for now. cc: Gabo Gonzalez MD
[2019-07-31] MEDS: THERA M PLUS PO SCH (20:49)
[2019-07-31] MEDS: LIPITOR PO SCH (20:49)
[2019-07-31] MEDS: PAXIL PO SCH (20:49)
[2019-07-31] MEDS: FISH OIL CONCENTRATE PO SCH (20:49)
[2019-08-01 06:32] LABS: ALBUMIN 3.6 g/dL (3.5-5.0); CALCIUM 8.4 mg/dL (8.8-10.2); CREATININE 4.9 mg/dL (0.7-1.2); PHOSPHORUS 4.5 mg/dL (2.7-4.5)
[2019-08-01] MEDS: PREDNISONE PO SCH (09:29)
[2019-08-01] MEDS: EFFIENT PO SCH (09:29)
[2019-08-01] MEDS: LANTUS INSULIN SUBQ SCH (09:29)
[2019-08-01] MEDS: BETAPACE PO SCH ×2 (09:29→21:57)
[2019-08-01] MEDS: PRILOSEC PO SCH (09:29)
[2019-08-01] MEDS: ASPIRIN PO SCH (09:29)
[2019-08-01] MEDS: HUMALOG SUBQ SCH ×3 (12:51→20:52)
--- NOTE | 2019-08-01 13:41 | PROGRESS NOTE ---
DATE: 08/01/2019 INTERVAL HISTORY: No acute events overnight. SUBJECTIVE: Mr. Reddy denies any chest pain, shortness of breath, cough. He denies any more nausea or diarrhea. He is sitting in the chair. VITALS: Temperature 97.7 degrees, pulse 51, respiratory 18, blood pressure 132/65. He is saturating 100% on room air. PHYSICAL EXAMINATION: General: He is not in any acute distress. Oral cavity is moist. Lungs: Air entry bilaterally equal. No wheeze or rhonchi. He has mild infrascapular crackles, more pronounced on the right side. Cardiovascular: S1, S2 normal. Bradycardic. No murmur or gallop. Abdomen: Soft, nontender. He has bilateral lower extremity edema. He has a right arm PICC line and left chest AICD. He is alert and oriented x3. LABS: BUN is 49, creatinine 4.9. He continues to have blood glucose in 120s range. His albumin is 3.6. No new microbiological or imaging data. ASSESSMENT AND PLAN: 1. Acute kidney injury on likely chronic kidney disease stage 3. He previously had donated his 1 of the kidneys. His acute kidney injury is likely in the setting of intravenous cefepime use that he was getting through PICC line for Pseudomonas bacteremia. Acute tubular necrosis versus allergic interstitial nephritis are possibilities. I will continue to monitor his renal function and electrolytes on a daily basis. Appreciate Nephrology recommendation. 2. History of ventricular tachycardia status post AICD, coronary artery disease status post coronary artery bypass grafting in 2001 and multiple stent in 2017. Continue home aspirin, prasugrel, atorvastatin, and sotalol, which he is taking for his ventricular tachycardia episodes. He denies any known history of atrial fibrillation. 3. History of insulin-dependent diabetes mellitus currently within acceptable range. Continue current dose of insulin glargine and starting scale insulin. 4. Episode of Pseudomonas pneumonia with Pseudomonas bacteremia in May 2019. He is status post 6 weeks course of intravenous cefepime. I will continue to watch for any signs of recurrence of pneumonia. He currently denies any chest pain, shortness of breath, or cough. 5. History of interstitial lung disease. The patient has been on oral prednisone since the last 2 months and has been down to 10 mg on a daily basis. It was thought that his episode of pneumonia in May 2019 was in the setting of use of high dose of prednisone as well as hospitalization at that time. Considering he did not have eosinophilia on presentation, urine eosinophil smear was negative and the risk associated with recurrent pneumonia and sepsis, I am watching his kidney function without increasing prednisone dose. DISPOSITION: I will continue to monitor patient inside the hospital. I had a detailed discussion with him about his kidney dysfunction, the risk associated with increasing steroid use and monitoring of kidney function and answered all of his questions. I also discussed with him about my concerns regarding the PICC line he has on the right arm and I discussed with him that keeping it longer than medically indicated could increase the risk of DVT and possibly introduction of infection through it. He understood it. However, he states previously he had trouble getting peripheral IV line and they had to stick him multiple times, so he decided to keep the PICC line in after understanding the risks associated with it. cc: Adi Hogan MD [facility]
[2019-08-01] MEDS: PAXIL PO SCH (21:56)
[2019-08-01] MEDS: THERA M PLUS PO SCH (21:56)
[2019-08-01] MEDS: FISH OIL CONCENTRATE PO SCH (21:56)
[2019-08-01] MEDS: MELATONIN PO SCH (21:56)
[2019-08-01] MEDS: LIPITOR PO SCH (22:20)
[2019-08-02 05:22] LABS: BASO# 0.05 X1000 (0.0-0.2); BASO% 0.8 % (0.0-0.8); EOS# 0.25 X1000 (0.0-0.7); EOS% 4.1 % (0.0-10.0); HEMATOCRIT 31.6 % (42.0-52.0); HEMOGLOBIN 9.7 g/dL (14.0-18.0); IMM GRAN# 0.03 X1000 (0.0-0.04); IMM GRAN% 0.5 % (0.0-0.5); LYMPH# 2.08 X1000 (1.2-3.4); LYMPH% 34.4 % (20.5-51.1); MCH 31.1 PG (27-31); MCHC 30.7 g/dL (33-37); MCV 101.3 FL (81-99); MONO# 0.68 X1000 (0.11-0.59); MONO% 11.3 % (1.7-9.3); MPV 11.9 FL (7.4-10.4); NEUT# 2.95 X1000 (1.4-6.5); NEUT% 48.9 % (42.2-75.2); PLT 135 X1000 (130-400); RBC 3.12 XMIL (4.7-6.1); WBC 6.04 X1000 (4.8-10.8)
[2019-08-02 05:45] LABS: ALBUMIN 3.6 g/dL (3.5-5.0); CALCIUM 8.9 mg/dL (8.8-10.2); CREATININE 4.4 mg/dL (0.7-1.2); PHOSPHORUS 4.5 mg/dL (2.7-4.5); POTASSIUM 4.4 mmol/L (3.5-5.1)
[2019-08-02] MEDS: HUMALOG SUBQ SCH ×5 (06:04→21:53)
[2019-08-02] MEDS: PRILOSEC PO SCH (08:42)
[2019-08-02] MEDS: PREDNISONE PO SCH (08:42)
[2019-08-02] MEDS: BETAPACE PO SCH ×2 (08:42→21:52)
[2019-08-02] MEDS: LASIX IV SCH ×2 (08:42→21:51)
[2019-08-02] MEDS: EFFIENT PO SCH (08:42)
[2019-08-02] MEDS: LANTUS INSULIN SUBQ SCH (08:43)
[2019-08-02] MEDS: ASPIRIN PO SCH (08:43)
--- NOTE | 2019-08-02 08:49 | NEPHROLOGY PROGRESS NOTE ---
DATE: 08/02/2019 SUBJECTIVE: He is still making urine, but the urine volume is overall low. No shortness of breath. He does have a little more swelling. OBJECTIVE: Vital Signs: Blood pressure 130/60, heart rate 52, respirations 24, afebrile. Intake 200 mL, output 300 mL. General: No acute distress. He is somewhat ill-appearing, however. Skin: Warm and dry. Heart: Regular. No gallops. Neck: Neck veins are not visible in the erect position. Cardiovascular: Heart is regular with a few scattered crackles. Abdomen: Soft, nontender. Bowel sounds are present. Extremities: There is 2+ edema. No clubbing or cyanosis. IMPRESSION: Acute kidney injury. Differential is between acute tubular necrosis and acute interstitial nephritis. We had another long discussion about the role of prednisone and the uncertainties related to his diagnosis, biopsy, complications related to prednisone, etc. We also discussed indications for dialysis and his current state. I have not recommended steroids, and his is, at the time, not in favor of increasing the dose of prednisone. Continue current care. cc: Gabo Gonzalez MD
[2019-08-02] MEDS ORDERED: DESYREL PO PRN (13:03)
--- NOTE | 2019-08-02 13:52 | PROGRESS NOTE ---
DATE: 08/02/2019 INTERVAL HISTORY: The patient is stable. Urine output remains low but present. His only complaint is some insomnia last night. REVIEW OF SYSTEMS: Twelve point review of systems negative except as per interval history. LABS: WBC 6.0, hemoglobin 9.7, hematocrit 31.6, platelets 135,000. Sodium 143, potassium 4.4, BUN 50, creatinine 4.4, glucose 109 to 242. VITALS: T-max 98.8 degrees, pulse 60, respirations 24, blood pressure 125/51, O2 saturation 100% on room air. PHYSICAL EXAMINATION: General: No acute distress. Vitals: As above. HEENT: Normocephalic, atraumatic. Moist mucous membranes. No cervical adenopathy. Cardiovascular: Regular rate and rhythm. No murmurs noted. AICD noted in place without issue in the upper chest. Pulmonary: Essentially clear to auscultation bilaterally. Abdomen: Soft, nontender, nondistended. Bowel sounds positive. Extremities: Peripheral pulses intact. Trace lower extremity edema bilaterally. Neurologic: Cranial nerves grossly intact. No focal deficits identified. Psychiatric: Normal mood and affect. ASSESSMENT/PLAN: 1. Acute kidney injury on possible chronic kidney disease 3. Patient with a single kidney. The kidney was donated. Suspected acute tubular necrosis versus allergic interstitial nephritis. Nephrology monitoring. Creatinine slightly better today than yesterday but over the last 4 to 5 days, it has not really changed much overall. We will see what it does in the morning. Nephrology has discussed giving higher dose steroids but patient and family have been deciding to defer that for now. We will continue low dose steroids and monitor. 2. History of ventricular tachycardia. Patient with automatic implantable cardioverter defibrillator. Has been largely in normal sinus rhythm here. 3. Coronary artery disease. Continue aspirin, prasugrel, atorvastatin, and sotalol. 4. Diabetes. Occasional moderate elevations but overall acceptable control. Continue sliding scale and monitor. 5. Recent Pseudomonas pneumonia with bacteremia. This was in May of this year. He finished a 6 week course of intravenous cefepime. No signs or symptoms of recurrence thus far but we will continue to monitor. 6. Hyperlipidemia. Continue statin.
[2019-08-02] MEDS: PAXIL PO SCH (21:51)
[2019-08-02] MEDS: THERA M PLUS PO SCH (21:51)
[2019-08-02] MEDS: LIPITOR PO SCH (21:51)
[2019-08-02] MEDS: FISH OIL CONCENTRATE PO SCH (21:52)
[2019-08-02] MEDS: MELATONIN PO SCH (21:52)
[2019-08-03] MEDS: HUMALOG SUBQ SCH ×3 (06:39→16:08)
[2019-08-03] MEDS: PREDNISONE PO SCH (08:47)
[2019-08-03] MEDS: EFFIENT PO SCH (08:47)
[2019-08-03] MEDS: PRILOSEC PO SCH (08:47)
[2019-08-03] MEDS: LASIX IV SCH (08:47)
[2019-08-03] MEDS: LANTUS INSULIN SUBQ SCH (08:47)
[2019-08-03] MEDS: BETAPACE PO SCH (08:47)
[2019-08-03] MEDS: ASPIRIN PO SCH (08:47)
[2019-08-03 09:20] LABS: ALBUMIN 3.8 g/dL (3.5-5.0); PHOSPHORUS 5.1 mg/dL (2.7-4.5)
--- NOTE | 2019-08-03 13:56 | PROGRESS NOTE ---
DATE: 08/03/2019 SUBJECTIVE: The patient has been admitted to the wards for the previous 6 days due to an acute on chronic renal failure exacerbation. He has been followed closely by the Hospitalist Service along by the Pig Machine Operator Helper Team in regards to his recent increase in his BUN and creatinine. Both the Hospitalist and Pig Machine Operator Helper Teams are working diligently to discern the etiology of the recent exacerbation of his renal failure, and according to recent reports, we believe that this is an acute tubular necrosis secondary to treatment with cephalosporins versus an acute interstitial nephritis. Over the previous 4 days, his BUN has continued to increase. Four days ago on 07/30/2019, it was 39, and today it is 53. This is associated with an increase in creatinine as well. His creatinine today is 5.0, the highest it has been since his admission to the hospital. He has no complaints today but is mainly concerned with the function of his kidney. REVIEW OF SYSTEMS: Pertinent positives within the review of systems were reported within the history of present illness above. OBJECTIVE: Vital signs: Most recent vital signs include a temperature of 97.5 degrees Fahrenheit, a pulse of 62 beats per minute, a respiratory rate of 22 respirations per minute, blood pressure of 124/60, and an O2 saturation by pulse oximetry at 100%. Cardiovascular: Heart clear to murmurs, rubs and gallops. Prominent and present S1 and S2 were auscultated. Pulmonary: Lungs clear to auscultation in all lung howell. Dermatologic: Multiple seborrheic keratoses were noted upon physical examination of the skin of the extremities along with minor bruising noted. Renal: The patient endorses that treatment with Lasix helps him urinate, and his kidneys respond well to the treatment. As of right now, he has a positive intake balance. His intake is at the level of 2250 mL. His urine output as of right now is 1750 mL for a positive urine balance of 500. This indicates that further treatment with Lasix may be necessary to help him void the remaining balance of fluid in his system. DIAGNOSTIC DATA: A urine smear that was collected on 07/31/2019 revealed no eosinophils. This likely means that his acute kidney injury is most likely not acute interstitial nephritis and is either an acute tubular necrosis or a simple side effect of his longstanding history of his type 2 diabetes. Today, he has a sodium of 143, potassium of 4, chloride of 106, CO2 of 22, BUN of 53 and a creatinine of 5. His estimated glomerular filtration rate is 12, indicating that he is in stage 5 chronic kidney disease. Today, his glucose is the highest that it has been since his stay here at the hospital at the level of 193. On 07/31/2019, he had an A1c of 7.2, further suggesting that his chronic struggle with type 2 diabetes may be a piper factor in etiology of his acute kidney injury. ASSESSMENT AND PLAN: Acute on chronic kidney disease. It is concerning that his BUN and creatinine have been the highest they have been since his admission to the hospital. This indicates that there is an ongoing process within the renal system that is causing his acute kidney injury to be worse. From the hospitalist's standpoint, we will manage electrolytes and make sure he is hydrated to ensure that there is no prerenal cause of his acute kidney injury. However, seeing that it is most likely an intrarenal cause of acute kidney injury, we will follow closely with Nephrology in order to determine an etiology and treatment of his acute on chronic kidney disease. Thank you very much for allowing me to see this patient. Dictated by Sheri Blank, Medical Student for Kade Ruiz MD This chart was documented by, Nicolasa Wyman Student and accurately reflects the services performed, treatment plan and medical decisions as attested by the providers signature Kade Ruiz MD. cc: Kade Ruiz MD MTDD
[2019-08-03 16:28] VITALS: BP 118/58
--- NOTE | 2019-08-03 18:40 | PROVIDER PROGRESS NOTE ---
Progress Note Subjective: He voices relief of nausea and has no complaints. Objective: temperature 97.4, pulse 56, respirations 22, blood pressure 139/65, O2 sat 100% on room air. General: Obese, White male sitting up to the side of the bed in no acute distress. HEENT: normocephalic, atraumatic, pupils equal and reactive, mucous membranes moist. Skin: warm and dry. Neck: supple, JVD observed in upright position Cardiovascular: S1S2. Bradycardc rate and rhythm. No murmur or gallop. Respiratory: diminished lung bases posteriorly. Abdomen: soft, nontender, nondistended. Bowel sounds present. : not inspected Extremities: 1+ pitting edema to BLE Neurological: alert and oriented to person place and time. Labs: sodium 143, potassium 4.0, chloride 106, carbon dioxide 22, BUN 53, creatinine 5.0, phosphorus 5.1, intake 2250, output 1750. Impression: Acute kidney injury. Acute tubular necrosis versus acute interstitial nephritis. His Creatinine continues to trend up. Today it is 5. We have not started an increased dose of prednisone. He is planning on discharge. We will monitor his labs x 3 days and set him up as an outpatient. Blood pressure. Stable. Fluid volume. Slightly Expanded. IV lasix in place. Change to po 80 mg BID. rg Anemia. Stable on last labs. Electrolytes. Stable. Anion gap acidosis. Stable. Physical deconditioning. Ambulated without difficulty. Medication review. No changes.
--- NOTE | 2019-08-03 19:01 | DISCHARGE SUMMARY ---
ADMISSION DATE: 07/28/2019 DISCHARGE DATE: 08/03/2019 DISPOSITION: Home. FOLLOW-UP: 1. Dr. Gracia. 2. Dr. Gonzalez. CONSULTATION DURING THIS ADMISSION: Nephrology was consulted. Patient was seen by Dr. Gonzalez. INVASIVE PROCEDURES DURING THIS ADMISSION: None. IMAGING STATUS OF SIGNIFICANCE: 1. Ultrasound of the kidneys showed no evidence of obstructive uropathy. 2. A chest x-ray showed no acute disease. ADMISSION DIAGNOSES: 1. Acute kidney injury. 2. Ischemic cardiomyopathy. 3. Systolic heart failure. 4. History of coronary artery disease. DIAGNOSES AT THE TIME OF DISCHARGE: 1. Acute on chronic kidney failure presumably from acute tubular necrosis versus acute interstitial nephritis. 2. History of ventricular tachycardia status post AICD. 3. History of coronary artery disease. 4. Diabetes mellitus. 5. Recent history of Pseudomonas pneumonia with bacteremia. The patient is status post treatment with cefepime. PICC line will be removed before she gets discharged. DISCHARGE MEDICATIONS: 1. Multivitamin 1 tab p.o. daily. 2. Nitroglycerin sublingual p.r.n. 3. Tramadol 50 mg p.o. p.r.n. 4. Atorvastatin 80 mg p.o. at bedtime. 5. Omeprazole 20 mg p.o. daily. 6. Paroxetine 10 mg p.o. at bedtime. 7. Spironolactone 12.5 p.o. daily. 8. Insulin 15 units subcutaneous daily. 9. Prasugrel 10 minute mg p.o. daily. 10. Aspirin 81 mg p.o. daily. 11. Metformin has been discontinued. 12. Sotalol 80 mg b.i.d. PRESENTING COMPLAINT: Direct admit for abnormal creatinine. HISTORY OF PRESENT COMPLAINT: Mr. Reddy is a 68-year-old gentleman who has history of ischemic cardiomyopathy, congestive heart failure, ejection fraction of 30. Previous MIs, status post CABG, came to the emergency room, went to see his ID provider for treatment of Pseudomonas pneumonia with bacteremia. The patient was on cefepime for about 6 weeks. On the day of the ID visit, laboratory data revealed creatinine getting worse. He was therefore mainly admitted for workup of the abnormal kidney function. HOSPITAL COURSE: Mr. Reddy was admitted to the medical floor, was evaluated including urinary studies and renal ultrasound. Nephrology was consulted. Patient was seen by Dr. Gonzalez. Throughout the hospital course, Mr. Reddy' creatinine actually went from 4.3 to 5.0. No major changes. Electrolyte remained stable. Acid-base remained stable. Nephrology thinks that the patient is making adequate urine and that there was no need to do any renal replacement therapy for now. They will follow him up with a repeat blood with a repeat renal function test in about a week and make decisions accordingly. I spoke directly with Dr. Gonzalez on these recommendations. Mr. Reddy is clinically stable. Denies any new complaint at the time of this encounter, his was at the bedside. Currently, his blood pressure is 134/60, pulse of 63, respirations 22, temperature 97.5 degrees. We have discontinued his metformin and also the omeprazole because of the renal abnormality. Time spent for discharge is 35 minutes. cc: Kade Ruiz MD
== END 2019-08-03 18:00 | disposition home health service (06) | DRG 682 ==
LOC: SUATTDRO 12:20 → DIRADM 12:20 → EDIPHOLD 13:59 → 1N 18:32
PROVIDERS: ATTEND Internal Medicine

== ENCOUNTER 2019-08-11 11:55 | Inpatient (IN) ==
--- NOTE | 2019-08-11 12:23 | EKG Report ---
Test Performed on : 08/11/2019 12:01:55 PM Test Reason : Vtach Blood Pressure : / mmHG Vent. Rate : 110 BPM Atrial Rate : 136 BPM P-R Int : 158 ms QRS Dur : 110 ms QT Int : 482 ms P-R-T Axes : 006 -47 128 degrees QTc Int : 652 ms Sinus tachycardia. with frequent and consecutive premature ventricular complexes. Left anterior fascicular block Minimal voltage criteria for LVH, may be normal variant Inferior infarct (cited on or before 17-JUN-2019) Anterolateral infarct (cited on or before 17-JUN-2019) Abnormal ECG When compared with ECG of 31-JUL-2019 12:48, premature ventricular complexes. are now present Vent. rate has increased BY 52 BPM Unconfirmed Result
--- NOTE | 2019-08-11 12:35 | Diag Imaging Result Doc PS360 ---
CHEST-PORTABLE - 08/11/2019 INDICATION: vtach COMPARISON: 07/28/2019 FINDINGS: Stable sternotomy wires and left-sided pacemaker. Stable mild cardiomegaly. Lung volumes are somewhat low. No infiltrates or definite edema. No large pleural effusion. IMPRESSION: Cardiomegaly. Electronically signed by Dwight Ferrer 08/11/2019 12:32 PM
[2019-08-11 13:00] LABS: BASO# 0.03 X1000 (0.0-0.2); BASO% 0.3 % (0.0-0.8); EOS# 0.24 X1000 (0.0-0.7); EOS% 2.6 % (0.0-10.0); HEMOGLOBIN 11.3 g/dL (14.0-18.0); IMM GRAN# 0.07 X1000 (0.0-0.04); IMM GRAN% 0.8 % (0.0-0.5); LYMPH# 1.79 X1000 (1.2-3.4); LYMPH% 19.7 % (20.5-51.1); MCH 31.3 PG (27-31); MCHC 31.4 g/dL (33-37); MCV 99.7 FL (81-99); MONO# 0.61 X1000 (0.11-0.59); MONO% 6.7 % (1.7-9.3); MPV 11.9 FL (7.4-10.4); NEUT# 6.36 X1000 (1.4-6.5); NEUT% 69.9 % (42.2-75.2); PLT 159 X1000 (130-400); RBC 3.61 XMIL (4.7-6.1); RDW 14.7 % (11.5-14.5)
[2019-08-11 13:08] LABS: INR 1.05; PROTIME 13.9 Seconds (11.0-16.0)
[2019-08-11 13:09] LABS: PTT 24.4 Seconds (22.3-41.8)
[2019-08-11 13:28] LABS: ALB/GLOB RATIO 1.9; ALBUMIN 4.2 g/dL (3.5-5.0); CALCIUM 8.9 mg/dL (8.8-10.2); CREATININE 2.1 mg/dL (0.7-1.2); MAGNESIUM 1.3 mg/dL (1.5-2.7); PHOSPHORUS 3.9 mg/dL (2.7-4.5); POTASSIUM 3.9 mmol/L (3.5-5.1); TOTAL BILIRUBIN 0.91 mg/dL (0.20-1.00); TOTAL PROTEIN 6.4 g/dL (6.3-8.3)
[2019-08-11] MEDS ORDERED: LASIX IV ONE (14:02)
[2019-08-11] MEDS ORDERED: MAGNESIUM SULFATE 2 GM/S.W.I. 2 GM/50 ML IVPB IV ONE ×2 (14:21→16:18)
--- NOTE | 2019-08-11 15:05 | PROVIDER DOCUMENTATION ---
This chart was entered by Sandra Gerard Scribe, acting as scribe for Raghavendra Zarco MD. HPI-Cardiac General - General Chief Complaint: Palpitations Stated Complaint: HEART FLUTTERING Time Seen by Provider: 08/11/19 12:07 Source: patient Allergies/Adverse Reactions: Patient Allergies Allergy/AdvReac Type Severity Reaction Status Date / Time levofloxacin [From Levaquin] Allergy VTACH Verified 08/11/19 12:57 cefepime AdvReac Unknown Verified 08/11/19 12:57 Home Medications: Home Medication List Medication Instructions Recorded Confirmed Last Taken Type Multivitamin [Multi-Vitamin Daily] 1 each PO QHS 11/04/12 08/11/19 1 Day Ago History ~08/10/19 Atorvastatin Calcium 80 mg PO QHS 02/13/17 08/11/19 1 Day Ago History ~08/10/19 Nitroglycerin 0.4 mg SL PRN PRN 02/13/17 08/11/19 1 Year Ago History ~08/10/18 Paroxetine [Paxil] 10 mg PO QHS 02/13/17 08/11/19 1 Day Ago History ~08/10/19 Tramadol HCl 50 mg PO PRN PRN 02/13/17 08/11/19 1 Day Ago History ~08/10/19 [place]-3 Fatty Acids/Fish Oil [Fish 1,000 mg PO QHS 08/08/17 08/11/19 1 Day Ago History Oil 1,000 mg Capsule] ~08/10/19 Spironolactone 12.5 mg PO DAILY 06/13/19 08/11/19 08/11/19 History Aspirin 81 mg PO DAILY 07/28/19 08/11/19 08/11/19 History Prasugrel [Effient] 10 mg PO DAILY 07/28/19 08/11/19 08/11/19 History Sotalol [Betapace] 80 mg PO BID tab 08/03/19 08/11/19 08/11/19 Rx Furosemide [Lasix] 40 mg PO DAILY 08/11/19 08/11/19 08/11/19 History Insulin Glargine [Lantus Insulin] 20 unit SUBQ DAILY 08/11/19 08/11/19 1 Day Ago History ~08/10/19 L.acidoph,Paracasei, B.lactis 1 ea PO QAM 08/11/19 08/11/19 08/11/19 History [Probiotic] Omeprazole Magnesium 20 mg PO QAM 08/11/19 08/11/19 08/11/19 History Prednisone 10 mg PO QAM 08/11/19 08/11/19 08/11/19 History - History of Present Illness-Cardiac Nature of Presenting Problem: 68yom presents to ED cc heart fluttering and dizziness, intermittently, since 7am. Pt reports he was recently inpatient from 07/27-08/03/2019 for acute kidney injury but no heart issues during that visit. He reports Dr. Mac/Freight Sorter changed his Solotal HCL to 120mg q day and then Dr. Paz/PCP changed it a week later to 80mg BID. He denies recent travel or sick contacts that he is aware of. Pt denies CP/SOB/N/V/D. Pt has hx of CAD, NV, HTN. He takes 81mg aspirin daily. Quality of Pain: reports: none Severity in ED: mild, moderate Onset/Duration: this morning Timing: still present Context/Activities at Onset: reports: light activity Modifying Factors: improves with: nothing Palpitation Quality: irregular Nitro Today/Relief: reports: no nitro taken today Aspirin Treatment Today: reports: 81 mg x 1, provided at home Prior Chest Pain/Cardiac Workup: reports: heart attack Associated Symptoms: reports: dizziness. denies: nausea, shortness of breath, vomiting Similar Symptoms Previously?: No Recently Seen Here or By Another Healthcare Provider: Yes Review of Systems - Adult - REVIEW OF SYSTEMS - ADULT Constitutional: reports: see HPI. denies: chills, fever, fatique Eyes: reports: no symptoms reported Ears, Nose, Mouth & Throat: reports: no symptoms reported Cardiovascular: reports: see HPI, irregular heart rate (fluttering). denies: chest pain, edema Respiratory: reports: see HPI. denies: shortness of breath, wheezing Gastrointestinal: reports: see HPI. denies: diarrhea, nausea, vomiting Genitourinary: reports: no symptoms reported Musculoskeletal: reports: no symptoms reported Integumentary: reports: no symptoms reported Neurological: reports: see HPI, dizziness/vertigo Psychiatric: reports: no symptoms reported Endocrine: reports: no symptoms reported Hematologic/Lymphatic: reports: no symptoms reported Allergic/Immunologic: reports: no symptoms reported All Other Systems: Reviewed and Negative Past History - Adult - PAST MEDICAL HISTORY-ADULT Review of Records: reports: Old Records Reviewed, Nursing Assessment Review, Medications Reviewed, Social history reviewed & non-contributory. Major Childhood Illnesses: reports: denies history Cardiovascular: reports: cardiac disease, CAD, HTN, hyperlipidemia, NV Respiratory: reports: asthma, sleep apnea Gastrointestinal: reports: denies history Obstetrical/Gynecological: reports: denies history Genitourinary: reports: denies history Musculoskeletal: reports: arthritis, chronic pain (back) Neurological: reports: denies history Endocrine/Immune: reports: denies history Other Conditions: reports: denies history - PRIOR SURGERIES/PROCEDURES Surgical/Procedure History: reports: CABG, cardiac stent, back/neck (back) - IMMUNIZATION STATUS Childhood Immunizations: See Nurse Assessment Flu Vaccine: See Nurse Assessment - FAMILY HISTORY Family History: reviewed, not pertinent Physical Exam-General - PHYSICAL EXAM-ADULT Initial Vital Signs Reviewed: Yes - CONSTITUTIONAL General Appearance: appears well, alert, no apparent distress, anxious. negative: combative - EYES Eyes: PERRL/EOMI, pink conjunctivae. negative: photophobia - HEAD, EARS, NOSE, MOUTH & THROAT HENMT: normocephalic/atraumatic, moist mucous membranes. negative: angioedema - NECK Neck: supple, normal inspection - RESPIRATORY Respiratory: chest non-tender, lungs clear, normal breath sounds. negative: rh onchi, wheezing - CARDIOVASCULAR Cardiovascular: normal peripheral pulses, no edema, systolic murmur (1/6). ne gative: bradycardia, tachycardia - GASTROINTESTINAL (ABDOMEN) Abdominal Exam: normal bowel sounds, non tender, soft. negative: guarding, rebound - MUSCULOSKELETAL Extremity: normal inspection, no pedal edema, no calf tenderness, normal capillary refill. negative: deformity, swelling - SKIN Integumentary: normal color, normal turgor, warm/dry. negative: diaphoresis, jaundice, rash - PSYCHIATRIC Psych/Mental Status: normal mood/affect, oriented x 3, anxious - HEART Score HEART Score: History: Highly Suspicious HEART Score: ECG: Non-Specific Repolarization Disturbance/LBBB/PM HEART Score: Age: > or = 65 Years HEART Score: Risk Factors for Atherosclerotic Disease: > or = 3 Risk Factors or History of Atherosclerotic Disease HEART Score: Troponin: 1-3x Normal Limit Total HEART Score:: 8 Progress - PLAN OF CARE/RESULTS Progress/Plan/Lab Results: Vital Signs - 8 hr 08/11/19 12:04 Temperature 97.7 F Pulse Rate 86 Respiratory Rate 18 Blood Pressure 117/78 O2 Sat by Pulse Oximetry 97 Laboratory Results - last 24 hr 08/11/19 08/11/19 08/11/19 12:50 12:50 12:50 WBC RBC Hgb Hct MCV MCH MCHC RDW Std Deviation Plt Count MPV Immature Gran % (Auto) Neut % (Auto) Lymph % (Auto) Garrett % (Auto) Eos % (Auto) Baso % (Auto) Immature Gran # (Auto) Neut # (Auto) Lymph # (Auto) Garrett # (Auto) Eos # (Auto) Baso # (Auto) PT INR PTT (Actin FS) Sodium 140 Potassium 3.9 Chloride 99 Carbon Dioxide 28 Anion Gap 13 BUN 39 H Creatinine 2.1 H Estimated GFR/1.73 m2 32 BUN/Creatinine Ratio 19 Glucose 206 H Calculated Osmolality 295 Calcium 8.9 Phosphorus 3.9 Magnesium 1.3 L Total Bilirubin 0.91 AST 22 ALT 20 Alkaline Phosphatase 83 Creatine Kinase 34 Troponin T High Sens 38 H [id number] Pept 73245 H Total Protein 6.4 Albumin 4.2 Globulin 2.2 Albumin/Globulin Ratio 1.9 08/11/19 08/11/19 12:50 12:50 WBC 9.10 RBC 3.61 L Hgb 11.3 L Hct 36.0 L MCV 99.7 H MCH 31.3 H MCHC 31.4 L RDW Std Deviation 14.7 H Plt Count 159 MPV 11.9 H Immature Gran % (Auto) 0.8 H Neut % (Auto) 69.9 Lymph % (Auto) 19.7 L Garrett % (Auto) 6.7 Eos % (Auto) 2.6 Baso % (Auto) 0.3 Immature Gran # (Auto) 0.07 H Neut # (Auto) 6.36 Lymph # (Auto) 1.79 Garrett # (Auto) 0.61 H Eos # (Auto) 0.24 Baso # (Auto) 0.03 PT 13.9 INR 1.05 PTT (Actin FS) 24.4 Sodium Potassium Chloride Carbon Dioxide Anion Gap BUN Creatinine Estimated GFR/1.73 m2 BUN/Creatinine Ratio Glucose Calculated Osmolality Calcium Phosphorus Magnesium Total Bilirubin AST ALT Alkaline Phosphatase Creatine Kinase Troponin T High Sens Pah-F-Hhnpoxylipg Pept Total Protein Albumin Globulin Albumin/Globulin Ratio Orders Category Date Time Status Cardiac Monitoring DIRECTED Care 08/11/19 12:18 Active Nursing- Obtain EKG once Care 08/11/19 14:22 Active Oxygen Therapy- ED Nursing DIRECTED Care 08/11/19 12:18 Active Saline Loc NOW Care 08/11/19 12:18 Active CHEST-PORTABLE [RAD] Stat Exams 08/11/19 12:19 Completed CBC WITH ELECTRONIC DIFF [HEME] Stat Lab 08/11/19 12:50 Completed CK PROFILE [SP CHEM] Stat Lab 08/11/19 12:50 Completed COMPREHENSIVE METABOLIC PANEL [CHEM] Stat Lab 08/11/19 12:50 Completed MAGNESIUM [CHEM] Stat Lab 08/11/19 12:50 Completed PRO B-NATRIURETIC PEPTIDE Stat Lab 08/11/19 12:50 Completed PROTIME WITH INR [COAG] Stat Lab 08/11/19 12:50 Completed PTT [COAG] Stat Lab 08/11/19 12:50 Completed TROPONIN T HIGH SENSITIVITY Stat Lab 08/11/19 12:50 Completed TROPONIN T HIGH SENSITIVITY Stat Lab 08/11/19 14:45 Received phos [PHOSPHORUS] [CHEM] Stat Lab 08/11/19 12:50 Completed Furosemide [Lasix] Med 08/11/19 14:02 Discontinued 20 mg IV NOW ONE Magnesium Sulfate 2 gm/S.w.i. Med 08/11/19 14:21 Active 2 gm in 50 ml IV NOW CP/SOB/Palp >45 yrs of Age Stat Oth 08/11/19 12:18 Ordered EKG [EKG] Stat Ther 08/11/19 12:18 Draft EKG [EKG] Stat Ther 08/11/19 14:22 Ordered Result Diagrams: 08/11/19 12:50 08/11/19 12:50 - REASSESSMENT Reassessment #1 Time Reassessed: 14:07 Status: improving (given IV lasix. Has paroxysmal V-tach twice in ED, lasting only a few seconds. BNP is 22K, very much higher than last time he was here, and is likely not renal related because creat is 2.1, better than it has been in the last few months.) - EKG 1 Time of EKG reading by physician:: 12:02 EKG Read and Signed by:: Raghavendra Zarco EKG Interpretation (*Must complete 3 of following elements*): Abnormal (left anterior fascicular block, inferior infarct, anterolateral infarct; age undetermined) Rate: 110 Rhythm: Sinus Tachy, then sinus joselo QRS: LBB, LVH, PVC's (frequent) [place] Interval: normal ST Wave: normal 2 Time of EKG reading by physician:: 14:50 EKG Read and Signed by:: Raghavendra Zarco EKG Interpretation (*Must complete 3 of following elements*): Abnormal (Inferior and anterolateral infarct, age undetermined) Rate: 69 Rhythm: NSR [place]: left QRS: normal [place] Interval: normal Prior EKG Comparison: changes noted (from EKG @12:02) - XRAY 1 XRAY: Bilateral XRAY Study: Chest Impression: See EMR Report (IMPRESSION: Cardiomegaly. Electronically signed by Dwight Ferrer 08/11/2019 12:32 PM) - CONSULTS/PCP/HOSPITALIST Notification #1 *Consult/PCP/Hospitalist*: Savanah paged at 1400 Time Discussed: 14:34 Consult Disposition: Will see in ED #2 Consult: SIS Wolfe, paged at 1408 Time Discussed: 15:04 Consult Disposition: Will see in ED, Admit Departure - Departure Date of Disposition Decision: 08/11/19 Time of Disposition Decision: 14:20 DIAGNOSIS: Ventricular tachycardia (paroxysmal), Near syncope, Hypomagnesemia syndrome Acute exacerbation of CHF (congestive heart failure) Qualifiers: Heart failure type: combined systolic and diastolic Qualified Code(s): I50.43 - Acute on chronic combined systolic (congestive) and diastolic (congestive) heart failure Disposition: ADMITTED INPATIENT 09 Certified Medical Emergency: Emergent Condition: Stable Additional Instructions: ED Follow Up Instructions: You have been treated by a care provider in the Emergency Department. These instructions are being provided to you so you can have an understanding of how to care for yourself upon discharge. Upon discharge from the Emergency Department, you are responsible for making arrangements for follow-up care by a physician of your choice. Take all prescribed medications as directed. Return to the Emergency Department immediately for any new or worsening symptoms. You may call the Physician Referral phone number at [phone] to obtain a list of Physicians who are taking new patients. Referrals and Follow-Ups: Tej Gracia [Primary Care Provider] - - Critical Care Note This patient required my direct & personal management of CC.: No Attestation - Physician/ ROSEMARY Attestation Patient care was provided by Advanced Practice Provider:: No The physician spent face to face time with patient:: Yes Advanced Practice Provider documentation review:: Supervising physician onsite and consulted in the evaluation and care of this patient. The physician did have a face to face encounter with the patient. This chart was documented by the indicated scribe, (Sandra Gerard Scribe) and accurately reflects the services I performed and decisions made by me, Raghavendra Zarco MD, as attested by the provider's signature.
--- NOTE | 2019-08-11 15:46 | EKG Report ---
Test Performed on : 08/11/2019 2:42:29 PM Test Reason : repeat for CP Blood Pressure : / mmHG Vent. Rate : 069 BPM Atrial Rate : 069 BPM P-R Int : 164 ms QRS Dur : 106 ms QT Int : 442 ms P-R-T Axes : 013 -36 109 degrees QTc Int : 473 ms Normal sinus rhythm. Left axis deviation Inferior infarct (cited on or before 31-JUL-2019) Anterolateral infarct (cited on or before 17-JUN-2019) Abnormal ECG When compared with ECG of 11-AUG-2019 12:01, (Unconfirmed) premature ventricular complexes. are no longer present Vent. rate has decreased BY 41 BPM Unconfirmed Result
[2019-08-11] MEDS ORDERED: ZOFRAN IV PRN (15:51)
[2019-08-11] MEDS ORDERED: ULTRAM PO PRN (15:53)
--- NOTE | 2019-08-11 17:06 | HISTORY AND PHYSICAL ---
ADDENDUM: Patient seen and examined by me [id number]. All the laboratory, vital signs and images were reviewed. Patient presented to Emergency Department due to some palpitations that has been going on since this morning, some dizziness as well. He has been evaluated before by our Cardiology Department but his booster assembler is actually at [facility], he has a PCI done in 2017 and some stents were placed, he has a pacemaker cardioverter and this is going to be interrogated today, Cardiology Department has been consulted. Probably they will do a stress test at this moment. This patient is completely, awake, alert he is oriented x3. He does not have focal deficits. Some lower extremity edema, as per the patient he has an appointment with the Nephrology Department this week, probably we will go ahead and consult nephrology to evaluate this patient since this patient is already hospitalized, his kidney function seems to be stable though. Medication will be adjusted by Cardiology Department. Probably he will have a stress test done tomorrow and depending on the results we will do something else, he is asymptomatic at this moment. I agree with the rest of the nurse practitioner's assessment and plan. cc: Tu Urbano MD
[2019-08-11 17:12] LABS: URINE SOURCE CLEAN CATCH
[2019-08-11 17:19] LABS: BILIRUBIN URINE NEGATIVE (NEGATIVE); BLOOD URINE NEGATIVE (NEGATIVE); COLOR YELLOW; GLUCOSE URINE NEGATIVE (NEGATIVE); KETONE URINE NEGATIVE (NEGATIVE); LEUKOCYTES URINE TRACE (NEGATIVE); NITRITE URINE NEGATIVE (NEGATIVE); PROTEIN URINE 30 mg/dL (NEGATIVE); SP GRAVITY URINE 1.015; TURBIDITY URINE CLEAR (CLEAR); UR EPITHELIAL CELLS <10 /HPF (<10); URINE BACTERIA NEGATIVE /HPF; URINE RBC <10 /HPF (<10); URINE WBC <10 /HPF (<10); UROBILINOGEN URINE NORMAL (NORMAL)
[2019-08-11 17:25] LABS: UR PROT RANDOM 30.7 mg/dL
--- NOTE | 2019-08-11 17:31 | HISTORY AND PHYSICAL ---
CHIEF COMPLAINT: Ventricular tachycardia, near syncope. HISTORY OF PRESENT ILLNESS: This is a very pleasant, 68-year-old gentleman with a prior history of ischemic cardiomyopathy with a left ventricular ejection fraction of about 30%, status post implantable defibrillator, paroxysmal ventricular tachycardia, coronary artery disease, renal insufficiency, who presents to the emergency room complaining of ventricular tachycardia. He states he has had 3 episodes today. He did feel dizzy, although he has not passed out. He stated he could feel therapies,. He has not been shocked by his defibrillator. He is followed by Cardiology in [place] who recently readjusted his medications with no change in symptoms. PAST MEDICAL HISTORY: 1. Ischemic cardiomyopathy with an ejection fraction of around 30%. 2. Chronic kidney disease. 3. Systolic congestive heart failure. 4. CAD status post coronary artery bypass graft x4 in 2001. 5. Paroxysmal ventricular tachycardia. 6. Gastroesophageal reflux disease. 7. Diabetes mellitus type 2. 8. 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 PAST SURGICAL HISTORY: 1. Coronary artery bypass graft x4 in 2001. 2. Right nephrectomy 1991 for donation. 3. Cholecystectomy. 4. Appendectomy. 5. Peyronie's disease. 6. Cardiac ablations. 7. Cardiac stents. SOCIAL HISTORY: Lives with his . He is retired from . He denies any alcohol, tobacco, or illicit drug use. ALLERGIES: Levaquin caused him to have ventricular tachycardia. HOME MEDICATIONS: A list will be obtained by the nursing staff and once verified we will review and restart as appropriate. REVIEW OF SYSTEMS: Discussed with the patient with pertinent positives stated in the HPI. He denied any syncope, any dizziness, any chest pain or palpitations, any shortness of breath, a productive cough, any fevers, any difficulty urinating. PHYSICAL EXAMINATION: GENERAL: This is a 68-year-old gentleman who is sitting up in the chair beside the stretcher in no distress. VITAL SIGNS: Blood pressure is 117/78 with a heart rate of 86, respirations 18, temperature is 97.7 degrees oral, with room air saturations 97%. HEENT: Head is normocephalic, atraumatic. Mucous membranes are moist. NECK: Supple with trachea midline. CARDIOVASCULAR: Regular rate and rhythm. S1 and S2 appreciated. Calves are nontender with peripheral pulses palpable. Systolic murmur 1 to 2/6 is noted. PULMONARY: Breath sounds are clear. No increased work of breathing noted. Chest rises and falls symmetric with respiration. GASTROINTESTINAL: Abdomen is soft, nontender, nondistended. Bowel sounds in all 4 quadrants. GENITOURINARY: No CVA or suprapubic tenderness. SKIN: Warm and dry. NEUROLOGIC: He is alert and oriented x3. LABS: WBC is 9.1 with hemoglobin 11.3, hematocrit 36, platelets 159,000. Sodium 140, potassium 3.9, BUN 39, creatinine 2.1, with a glucose of 206. Troponin was 34 with a proBNP of 22,948. Chest x-ray revealed cardiomegaly with low lung volumes. No infiltrates or definite edema. ASSESSMENT: 1. Paroxysmal ventricular tachycardia with near syncope. The patient states that he has not been shocked by his defibrillator in quite some time. This is a normal finding for him. He did state that episodes happen closer together over the last day or two. Therefore, he presented to the emergency room number. He is followed by [facility]. 2. Hypomagnesemia. This has been replaced. We will trend labs and follow daily. 3. Ischemic cardiomyopathy with an ejection fraction of around 30%. 4. Atherosclerotic coronary artery disease with a history of coronary artery bypass graft x4. 5. Hypertension. 6. Hyperlipidemia. 7. Renal insufficiency in a patient with 1 kidney, status post donation. He is followed by Dr. Gonzalez. 8. Elevated proBNP. PLAN: The patient will be admitted to PVC unit, placed on telemetry for close monitoring Strict I O and daily weights. identify his home medications and continue as appropriate. consult Dr. Gonzalez and Dr. Pavon. Oxygen as needed per protocol. Check a CMP, CBC, magnesium, proBNP in the morning. trend troponins. Further treatments pending hospital course. Dictated by SIS Brandt for Tu Urbano MD cc: SIS Brandt MD [facility]
[2019-08-11] MEDS: HUMALOG SUBQ SCH ×2 (17:43→21:21)
--- NOTE | 2019-08-11 17:43 | CARDIOLOGY CONSULTATION ---
DATE: 08/11/2019 HISTORY: Mr. Kwabena Reddy is a is a 68-year-old gentleman with known history of coronary artery disease, ventricular tachycardia, LV dysfunction, status post AICD placement. He was admitted in May 2019 and was treated for pneumonia. At that time he also was noted to have abnormal heart rhythm. His echocardiogram done revealed ejection fraction of 45% with moderate to severe mitral regurgitation. The patient was discharged home. He had been doing well. This morning, he noticed multiple episodes of palpitations and with dizziness. No jyoti syncope. He has an AICD and did not receive any shocks. The AICD over drove the tachycardia which he felt. He denies chest pain. He subsequently came to the emergency room and was noted to have a magnesium of 1.3. He was noted to be in ventricular tachycardia in the emergency room as well. He was given 2 grams of magnesium intravenously. There is no chest pain. He has dyspnea on exertion, grade 2. There is no orthopnea or paroxysmal nocturnal dyspnea. He has noticed increasing pedal edema. He also has chronic kidney disease. REVIEW OF SYSTEMS: A 14 point review of system was done.GI: Over the last couple of days he has had a few episodes of diarrhea. There is no history of nausea. There is no vomiting. There is no hematemesis or melena. Central Nervous System: No focal weakness to suggest a CVA or TIA. : There is no dysuria or hematuria. Respiratory: There is no history of fevers, chills, cough, expectoration or hemoptysis. Endocrine System: Stable. PAST MEDICAL HISTORY: 1. Recent admission with acute respiratory failure with multifocal cavitary Pseudomonas pneumonia and had septic shock with bacteremia. He was treated for that. He also had episodes of nonsustained ventricular tachycardia. This was in during his hospitalization from 06/13/2019 06/19/2019. 2. Ischemic cardiomyopathy. 3. Status post [employer] automated implantable cardioverter defibrillator placement. 4. Coronary artery disease, status post coronary artery bypass grafting in the past in 2001. Subsequently on 11/05/2012, proximal vein graft to diagonal collateralization. The remainder of the system - right coronary artery, left internal mammary artery, saphenous vein graft to right coronary artery occluded. There was a drug-eluting stent placed to the proximal saphenous vein graft to diagonal. The patient had a cardiac catheterization last on 01/13/2017. Had percutaneous intervention with drug-eluting stent to mid left anterior descending artery. Indefinite dual platelet therapy recommended. There was severe disease of the ostium of the last remaining graft with severe sleetmute disease. Surgical versus salvage percutaneous intervention recommended and he underwent the percutaneous intervention. 1. Systolic heart failure. 2. Moderate to severe mitral regurgitation. 3. [employer] device implanted 01/10/2018. 4. Hypertension. 5. Diabetes. 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 Renal insufficiency. 7. Immunoglobulin deficiency. 8. Obesity. 9. Long-term medications. HOME MEDICATIONS: Include 1. Sotalol 80 mg b.i.d. 2. Plavix 75 mg a day. 3. Enteric-coated aspirin 81 mg. 4. Lantus insulin as directed. 5. Tramadol 50 mg. 6. Lipitor 80 mg. 7. Omeprazole 20 mg. 8. Valsartan 40 mg once daily. 9. Spironolactone 25 mg a day. ALLERGIES: He is allergic to Levaquin. SOCIAL HISTORY: He does not smoke. Does not drink. PHYSICAL EXAMINATION: Vital Signs: Blood pressure was 117/78. Patient was afebrile. Oxygen saturation 97%. Cardiovascular: Jugular venous pressure was normal. First and second heart sounds were heard. There was a soft systolic murmur. Respiratory: Normal air entry. There was no crepitations or rhonchi. Abdomen: Soft, nontender. There was no guarding or rigidity. Bowel sounds were heard. Central Nervous System: Alert and oriented. Was moving all four extremities. Extremities: Examination revealed pitting pedal edema around his ankles and shins. LABORATORY EXAMINATION: Sodium 140, potassium 3.9, BUN 39, creatinine 2.1. Cardiac enzymes were negative. ProBNP elevated at 22,948. Magnesium was 1.3. Hematology with WBC 9.1 hemoglobin 11.3 hematocrit 36.0, platelet count of 159,000. IMAGING: Chest x-ray reports cardiomegaly. There is no pneumonia or infiltrate noted. ASSESSMENT AND PLAN: Mr. Kwabena Reddy is a 68-year-old gentleman who was admitted earlier this year with multifocal cavitary Pseudomonas pneumonia, has coronary artery disease, status post coronary artery bypass grafting, automated implantable cardioverter defibrillator placement, history of ventricular tachycardia, diabetes, hypertension, presents to the hospital today with increasing episodes of palpitations with ventricular tachycardia noted and he has experienced the automated implantable cardioverter defibrillator over driving the pacemaker. This was associated with dizziness. From a cardiac standpoint. 1. His magnesium will be repleted. He was given 2 grams we will give extra 2 grams of magnesium. 2. We will increase his sotalol to 180 mg twice daily. 3. He has no chest pain. His recent echocardiogram revealed ejection fraction of 40% to 45% with severe mitral regurgitation. We will plan for an ischemic workup with Lexiscan Cardiolite stress test in the morning. 4. For his left ventricular dysfunction continue his other medications which he has been taking. 5. Coronary artery disease, status post coronary artery bypass graft and intervention on multiple occasions. He is on long-term aspirin and Plavix which will be continued lifelong. Would recommend continuing the same. 6. Gastroesophageal reflux disease. Continue with omeprazole. 7. Hyperlipidemia. He is on atorvastatin 80. I have not made any changes to his medications. 8. He has an appointment to see Dr. Gonzalez for followup this week. We will consult him as well. He takes diuretics for his chronic pedal edema. I have not made any changes to the dosage. Thanks for the consult. cc: Rashawn Pavon MD
[2019-08-11] MEDS ORDERED: BETAPACE PO SCH ×2 (21:00)
[2019-08-11] MEDS: PAXIL PO SCH (21:20)
[2019-08-11] MEDS: FISH OIL CONCENTRATE PO SCH (21:20)
[2019-08-11] MEDS: LIPITOR PO SCH (21:20)
[2019-08-12] MEDS: HUMALOG SUBQ SCH ×4 (06:19→21:57)
[2019-08-12 06:40] LABS: BASO# 0.06 X1000 (0.0-0.2); BASO% 0.8 % (0.0-0.8); EOS# 0.38 X1000 (0.0-0.7); EOS% 4.8 % (0.0-10.0); HEMATOCRIT 33.7 % (42.0-52.0); HEMOGLOBIN 10.4 g/dL (14.0-18.0); IMM GRAN% 1.3 % (0.0-0.5); LYMPH# 2.52 X1000 (1.2-3.4); LYMPH% 31.7 % (20.5-51.1); MCH 30.8 PG (27-31); MCHC 30.9 g/dL (33-37); MCV 99.7 FL (81-99); MONO# 0.75 X1000 (0.11-0.59); MONO% 9.4 % (1.7-9.3); MPV 12.3 FL (7.4-10.4); NEUT# 4.13 X1000 (1.4-6.5); PLT 152 X1000 (130-400); RBC 3.38 XMIL (4.7-6.1); RDW 14.8 % (11.5-14.5); WBC 7.94 X1000 (4.8-10.8)
[2019-08-12 07:04] LABS: ALB/GLOB RATIO 1.7; ALBUMIN 3.8 g/dL (3.5-5.0); CALCIUM 8.8 mg/dL (8.8-10.2); CREATININE 2.1 mg/dL (0.7-1.2); MAGNESIUM 1.9 mg/dL (1.5-2.7); POTASSIUM 3.3 mmol/L (3.5-5.1); TOTAL BILIRUBIN 0.85 mg/dL (0.20-1.00)
--- NOTE | 2019-08-12 07:53 | EKG Report ---
Test Performed on : 08/12/2019 07:42:13 AM Test Reason : vtach Blood Pressure : / mmHG Vent. Rate : 064 BPM Atrial Rate : 064 BPM P-R Int : 166 ms QRS Dur : 110 ms QT Int : 478 ms P-R-T Axes : 012 -42 107 degrees QTc Int : 493 ms Normal sinus rhythm. Left axis deviation Inferior infarct (cited on or before 31-JUL-2019) Anterolateral infarct (cited on or before 17-JUN-2019) Abnormal ECG When compared with ECG of 11-AUG-2019 14:42, (Unconfirmed) No significant change was found Confirmed by Silvestre Wild MD ([id number]) on 08/13/2019 7:36:48 PM
[2019-08-12] MEDS ORDERED: KLOR-CON PO ONE ×2 (08:51→12:45)
--- NOTE | 2019-08-12 09:14 | PROGRESS NOTE ---
DATE: 08/12/2019 SUBJECTIVE: The patient is sitting at the bedside. He is not complaining of chest pain or shortness of breath at this moment. Apparently, he has been having some episodes of ventricular tachycardia again. Cardiology Department has proposed to do a stress test, but the patient states that he is not sure to do it today. He wants to talk to Cardiology Department and his before making any kind of decision. OBJECTIVE: Vital Signs: Temperature 97.6 degrees, pulse 66, respiratory rate 20, blood pressure 133/65, oxygen saturation 97% on room air. HEENT: Head normocephalic. No trauma. PERRLA. Neck: Supple. No JVD. No masses. Central trachea. Chest: Clear to auscultation. No wheezing. No rales. Cardiovascular: RRR. Abdomen: Soft, nontender, nondistended. No hepatosplenomegaly. Protuberant. Extremities: No edema, no clubbing, no cyanosis. Neurological: The patient is awake, alert. He is oriented x3. No focal deficits. LABORATORY DATA: WBC 7.9, hemoglobin 10.4, hematocrit 33.7, platelets 152,000. Sodium 144, potassium 3.3, chloride 103, bicarbonate 27, BUN 36, creatinine 2.1, glucose 115, calcium 8.8. AST 19, ALT 17, alkaline phosphatase 75. ASSESSMENT AND PLAN: 1. Paroxysmal ventricular tachycardia. He is still having episodes of ventricular tachycardia. At the moment of my exam, he was back to his normal rate. Cardiology Department requested to do a stress test, but the patient wants to think about it and discuss the case with the Cardiology team and his first. He is being kept nothing by mouth. I asked him if he wants to restart a diet, and he states that for now, he wants to be nothing by mouth and talk to everybody first. 2. Hypomagnesemia, resolved. 3. Ischemic cardiomyopathy with ejection fraction of 30%. Aware. 4. Atherosclerotic coronary artery disease with history of coronary artery bypass graft. 5. Hypertension, stable. 6. Hyperlipidemia. Continue with the same management. 7. Chronic kidney disease. This patient has 1 kidney, apparently status post donation, followed by Dr. Gonzalez. 8. Elevated proBNP. Will monitor for now. He is asymptomatic at this moment. 9. Hypokalemia. He is on spironolactone, low dose. I will give him some potassium today. cc: Tu Urbano MD
[2019-08-12] MEDS ORDERED: CORDARONE PO SCH (09:40)
[2019-08-12] MEDS ORDERED: TOPROL XL PO SCH (09:45)
[2019-08-12] MEDS: PRILOSEC PO SCH (10:28)
[2019-08-12] MEDS: ASPIRIN PO SCH (10:28)
[2019-08-12] MEDS: CULTURELLE PO SCH (10:28)
[2019-08-12] MEDS: LASIX PO SCH (10:28)
[2019-08-12] MEDS: EFFIENT PO SCH (10:28)
[2019-08-12] MEDS: ALDACTONE PO SCH (10:28)
[2019-08-12] MEDS: PREDNISONE PO SCH (10:28)
--- NOTE | 2019-08-12 11:25 | NEPHROLOGY CONSULTATION ---
DATE: 08/12/2019 DATE AND TIME OF EXAM: 08/12/2019 at 0630 hours. CHIEF COMPLAINT: "I could feel my heart fluttering." HISTORY OF PRESENT ILLNESS: Mr. Reddy is a 68-year-old white male who is known to our service. 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 In May, he was hospitalized for Pseudomonas pneumonia and bacteremia with septic shock. He developed acute kidney injury that resolved. He was discharged on IV cefepime for endovascular infection of pacemaker wires. He then came back in at the beginning of July with uremic symptoms and abnormal kidney function. We thought this could possibly be interstitial nephritis. We deferred a biopsy due to a solitary kidney and eliquis use. He was treated with 10 mg of prednisone, which is his home dose. His creatinine has since been trending down and is currently 2.1. Starting yesterday around 7 a.m., Mr. Reddy voices feeling his heart flutter with associated hot flashes and feelings of syncope. These episodes last a few minutes in duration. He does not think anything specifically initiates them, and he immediately gets to a sitting position. He is noted to have an AICD and denies receiving any shocks. After 3 of these episodes yesterday, he decided to come into the emergency room where he was found to be in ventricular tachycardia with a magnesium of 1.3. He was given 2 g of magnesium IV. Upon questioning today, he admits he has had some shortness of breath that does not wake him up during the night. He denies any chest pain, nausea or vomiting, change in appetite, blood in urine or stool, or recent traveling/ exposure to the flu. PAST MEDICAL HISTORY: Recent Pseudomonas pneumonia with bacteremia and septic shock, recent acute kidney injury, recent possible interstitial nephritis, solitary kidney due to donation, chronic kidney disease stage III, hypertension, diabetes, systolic congestive heart failure with an EF of 45%, diabetes mellitus type 2, obesity, coronary artery disease and ischemic cardiomyopathy. PAST SURGICAL HISTORY: CABG 2001 with proximal vein graft in 2012, AICD placement in 2018. SOCIAL HISTORY: He is and lives at home with his . He denies any alcohol, tobacco, or illicit drug use. FAMILY HISTORY: Positive for heart disease. ALLERGIES: Levaquin and cefepime. HOME MEDICATIONS: Aspirin, atorvastatin, calcium, furosemide, Lantus insulin, probiotic, multivitamin, nitroglycerin sublingual p.r.n., fish oil, omeprazole, paroxetine, Presulcal, prednisone, sotalol, spironolactone, tramadol. REVIEW OF SYSTEMS: Fourteen point review of system complete. All pertinent positives listed above in the HPI. PHYSICAL EXAM: Vitals: Temperature 97.6 degrees, pulse 66, respirations 20, blood pressure 133/65, and O2 saturation 97% on room air. General: Elderly white male sitting up to a chair in no acute distress. HEENT: Normocephalic, atraumatic. Mucous membranes moist. Pupils equal and reactive. Skin: Pale with multiple bruises in different healing stages. Neck: Neck is supple. An 8 cm JVD in upright position. Cardiovascular: S1, S2. Regular rate and rhythm. Soft systolic murmur noted. Pulmonary: Lungs clear to auscultation with equal air entry anteriorly. Abdomen: Soft, nontender, nondistended, active bowel sounds. : None inspected. Extremities: 2+ pitting edema up to bilateral knees. Neurological: Alert and oriented to person, place, and time. LABS: WBC 7.94, hemoglobin 10.4, hematocrit 33.7, platelet count 152. Sodium 144, potassium 3.3, chloride 103, carbon dioxide 27. BUN 36, creatinine 2.1. Intake 350; output 900. IMAGING: Chest x-ray impression: Cardiomegaly. ASSESSMENT AND PLAN: 1. Acute kidney injury. Likely interstitial nephritis that is recovering. His creatinine continues to improve from his initial injury on July 26. He was supposed to have a follow-up appointment in our office tomorrow. Due to his recent hospitalization, we will move that out and continue to monitor his labs. He denies current uremic complaints. 2. Blood pressure within normal limits. 3. Fluid volume expanded. Patient is on scheduled Lasix. 4. Anemia. Low, but stable. Does not meet transfusion criteria. 5. Electrolytes and acid-base balance. These are currently acceptable. Intravenous electrolyte replacement yesterday. 6. Nutrition: Adequate. 7. Medication review: Home medications restarted with Betapace increased to 120 mg twice daily. DISPOSITION: The patient is planned for a stress test this morning. As long as this is uneventful, he plans on discharging today. We will reschedule his follow-up visit in the outpatient setting. I would like to thank you for allowing us to follow with this patient. Dictated by SIS Couch for Gabo Gonzalez MD Face to face encounter, data reviewed, discussed with Junior Mosquera on 08/12/19. I agree with the above assessment and plan of care. cc: Gabo Gonzalez MD [facility]
--- NOTE | 2019-08-12 12:07 | Diag Imaging Result Doc PS360 ---
EXAM: CT THORAX W/O CONTRAST INDICATION: dyspnea, recent pneumonia, evaluate for fibrosis TECHNIQUE: This exam was performed using automated exposure control, adjustment of mA or kV according to patient size, and/or use of iterative reconstruction technique. COMPARISON: 06/14/2019 FINDINGS: The consolidation in the right upper lobe seen on the previous study as well as a consolidation in the medial left lower lobe near the base have almost completely resolved. There is only faint increased opacity in these regions. There is stable milder fibrotic changes at the left lung base. No new consolidations are appreciated. Consolidation at the posterior right lung base in the right lower lobe has also improved significantly. There is still what appear to be dense focal fibrosis in the medial right lung base with associated traction bronchiectasis. There is a calcified granuloma in the lingula. There are bulky calcified mediastinal lymph nodes indicating prior granulomatous disease. CABG changes are again noted. The heart appears borderline to mildly prominent but stable. Limited views of the upper abdomen are essentially unremarkable. IMPRESSION: 1.Interval marked improvement of the multifocal pneumonia seen on the previous study with only faint residual opacity in these regions. 2.Stable bibasilar fibrosis and bronchiectasis at the medial right lung base. Electronically signed by Tomy Hendrickson 08/12/2019 12:04 PM
[2019-08-12] MEDS: BETAPACE PO SCH ×2 (13:15→21:55)
[2019-08-12] MEDS: MAG-OX PO SCH (13:16)
[2019-08-12] MEDS: PAXIL PO SCH (21:55)
[2019-08-12] MEDS: FISH OIL CONCENTRATE PO SCH (21:55)
[2019-08-12] MEDS: LIPITOR PO SCH (21:55)
[2019-08-12] MEDS ORDERED: AMBIEN PO PRN (23:01)
[2019-08-13] MEDS: HUMALOG SUBQ SCH (06:08)
[2019-08-13 06:22] LABS: CALCIUM 9.1 mg/dL (8.8-10.2); CREATININE 2.1 mg/dL (0.7-1.2)
[2019-08-13] MEDS ORDERED: LASIX IV ONE (07:01)
[2019-08-13 07:58] VITALS: BP 126/68
[2019-08-13] MEDS: EFFIENT PO SCH (08:29)
[2019-08-13] MEDS: CULTURELLE PO SCH (08:29)
[2019-08-13] MEDS: ASPIRIN PO SCH (08:29)
[2019-08-13] MEDS: ALDACTONE PO SCH (08:29)
[2019-08-13] MEDS: MAG-OX PO SCH (08:29)
[2019-08-13] MEDS: BETAPACE PO SCH (08:29)
[2019-08-13] MEDS: PRILOSEC PO SCH (08:30)
[2019-08-13] MEDS: PREDNISONE PO SCH (08:39)
[2019-08-13] MEDS: LASIX PO SCH (09:56)
--- NOTE | 2019-08-13 11:46 | NEPHROLOGY PROGRESS NOTE ---
DATE: 08/13/2019 TIME SEEN: 07:00. SUBJECTIVE: The patient is sitting up to the side of the bed, in no acute distress. He voices he did not get his stress test because he did not feel like he should. He says that he is going to follow up with his inbound telemarketer in [place]. He voices having a good night's rest and denies any uremic complaints. OBJECTIVE: Vital Signs: Temperature 97.7 degrees, pulse 64, respirations 18, blood pressure 126/68, O2 saturation 95% on room air. General: Elderly, white male sitting up on the side of the bed, in no acute distress. HEENT: Normocephalic, atraumatic. Mucous membranes moist. Pupils equal and reactive. Skin: Pale with multiple bruises in different healing stages. Neck: Supple. There is 8 cm JVD in the upright position. Cardiovascular: S1, S2. Regular rate and rhythm. Soft systolic murmur noted. Pulmonary: Lungs clear to auscultation in the upper lobes with fine small crackles in the bilateral bases posteriorly. Abdomen: Soft, nontender, nondistended, with active bowel sounds. is not inspected. Extremities: There is 2 to 3+ pitting edema. Neurological: Alert and oriented to person, place, and time. Labs: Sodium 137, potassium 4, chloride 100, carbon dioxide 26, BUN 34, creatinine 2.1. Intake 1430, output 675 with two continent voids not measured. IMPRESSION: 1. Acute kidney injury, likely interstitial nephritis, resolving. Patient's creatinine has remained at 2.1 for the last 3 days. His urine output was only 675 yesterday. We will continue to plan to see him in the outpatient setting. 2. Blood pressure, stable. 3. Fluid volume, slightly expanded. We are going to give him a 100 mg intravenous Lasix dose today. He is already on Lasix 40 mg twice a day. We have instructed him to weigh himself daily. If he sees a trend in his weight going up before his followup appointment with us, we have asked him to double his Lasix for that day and re-evaluate in the morning. Educated on water restriction and low-sodium diet. 4. Anemia. Stable on last labs. Low but stable. 5. Electrolytes and acid-base balance. These are acceptable. 6. Nutrition, adequate per documentation. MEDICATION REVIEW: Sotalol 120 mg p.o. b.i.d. DISPOSITION: The patient is supposed to be discharging today. We will follow up with him in the outpatient setting. Dictated by SIS Couch for Gabo Gonzalez MD Face to face encounter, data reviewed, discussed with Junior Mosquera on 08/13/19. I agree with the above assessment and plan of care. cc: Gabo Gonzalez MD [facility]
--- NOTE | 2019-08-13 12:16 | DISCHARGE SUMMARY ---
ADMISSION DATE: 08/11/2019 DISCHARGE DATE: 08/13/2019 DISCHARGE DIAGNOSES: 1. Paroxysmal ventricular tachycardia. 2. Hypomagnesemia. 3. Ischemic cardiomyopathy with an ejection fraction of 30%. 4. Atherosclerotic coronary artery disease with history of coronary artery bypass graft. 5. Hypertension. 6. Hyperlipidemia. 7. Chronic kidney disease. 8. Hypokalemia. PROCEDURES PERFORMED: 1. Chest x-ray dated 08/11/2019. Impression: Cardiomegaly. 2. Chest CT scan dated 08/12/2019. Impression: Interval marked improvement of the multifocal pneumonia seen on previous study with only faint residual opacity in these regions, stable bibasilar fibrosis and bronchiectasis at the medial right lung base. HOSPITAL COURSE: A 68-year-old male with a past medical history of ischemic cardiomyopathy with left ventricular ejection fraction of about around 30, status post implantable defibrillator, paroxysmal ventricular tachycardia, coronary artery disease, and renal insufficiency presented to the emergency department complaining of tachycardia and palpitations. Apparently, he has also been feeling dizzy when he has those episodes, although he has not passed out. He was evaluated by Cardiology Department, and the original plan was to take this patient for a stress test, but the patient actually refused that. Dr. Pavon from Cardiology Department, contacted EP at [facility]. They have decided to increase the dose of the sotalol to 120 p.o. b.i.d. The patient also was complaining of severe insomnia, and I gave him a dose of Ambien. It looks like that works perfectly. He seems to be stable today. No episodes of ventricular tachycardia during the night. Case has been discussed yesterday with Dr. Pavon who recommended to discharge this patient home and follow up with his hog man as an outpatient. The patient has been instructed to take the medications as prescribed, and call Cardiology for follow-up. He seems to understand. He seems to be stable. PHYSICAL EXAMINATION: Vital signs: Temperature 97.7 degrees, pulse 68, respiratory rate 18, blood pressure 126/68, and oxygen saturation 93 on room air. HEENT: Head normocephalic. No trauma. PERRLA. Neck: Supple. No JVD. No masses. Central trachea. Chest: Clear to auscultation. No wheezing. No rales. Cardiovascular: RRR. Abdomen: Soft, nontender, and nondistended. No hepatosplenomegaly. Protuberant. Extremities: No edema. No clubbing. No cyanosis. Neurological: The patient is awake and alert. He is oriented x3. No focal deficits. LABORATORY: Sodium 137, potassium 4, chloride 100, bicarbonate 26, BUN 34, creatinine 2.1, glucose 124, calcium 9.1, and magnesium 1.6. DISCHARGE MEDICATIONS: 1. Aspirin 81 mg p.o. daily. 2. Atorvastatin 80 mg p.o. at bedtime. 3. Lasix 40 mg p.o. daily. 4. Lantus 20 units subcutaneous daily. 5. Probiotic 1 tablet p.o. every morning. 6. Magnesium oxide 400 mg p.o. daily. 7. Multivitamin 1 tablet p.o. at bedtime. 8. Nitroglycerin 0.4 mg sublingual as needed for chest pain. 9. Fish Oil 1000 mg capsule 1000 mg p.o. at bedtime. 10. Omeprazole 20 mg p.o. every morning. 11. Paxil 10 mg p.o. at bedtime. 12. Effient 10 mg p.o. daily. 13. Prednisone 10 mg p.o. every morning. 14. Sotalol 120 mg p.o. b.i.d. 15. Spironolactone 12.5 mg p.o. daily. 16. Tramadol 50 mg p.o. as needed for pain. 17. Ambien 10 mg p.o. at bedtime as needed for insomnia. cc: Tu Urbano MD
== END 2019-08-13 10:30 | disposition home or self-care (01) | DRG 309 ==
LOC: ED 11:55 → 2N 16:24
PROVIDERS: ATTEND Internal Medicine